=== PATIENT | male | born 1965 | race Caucasian/White ===

== ENCOUNTER 2018-03-31 14:33 | Observation (INO) | payer OTHER ==
[2018-03-31] MEDS ORDERED: IPRATROPIUM-ALBUTEROL 3 ML NEB INHALATION STA (15:37)
[2018-03-31] MEDS ORDERED: methylPREDNISolone SOD SUCCI 125 MG/2 ML VIAL IV STA (15:37)
[2018-03-31] MEDS ORDERED: LEVOFLOXACIN 750 MG TAB PO STA (15:37)
[2018-03-31] MEDS ORDERED: SODIUM CHLORIDE 0.9% 1,000 ML IV STA (15:37)
--- NOTE | 2018-03-31 15:58 | ED ---
General Adult HPI - General Chief complaint: Shortness of Breath Stated complaint: NBA Time Seen by Provider: 03/31/18 14:56 Source: patient, RN notes reviewed, old records reviewed Mode of arrival: ambulatory Limitations: no limitations - History of Present Illness Initial comments: Patient is a 53-year-old male presents emergency room today with 1 week of difficulty breathing and increased cough. patient has history of asthma. He reports that he's had increased sputum production. He is a nonsmoker. Patient reports that he has been using his albuterol inhaler 8-10 times an hour. Patient states that he is around a lot of smokers. Patient states that he has been having difficulty in breathing, never this severe in the past. He's never been admitted or intubated. - Related Data Home Medications Medication Instructions Recorded Confirmed Albuterol Inhaler [Ventolin Hfa 1 - 2 puff INHALATION RT-Q6H PRN 03/31/18 Inhaler] Celecoxib [CeleBREX] 200 mg PO BID 03/31/18 03/31/18 HYDROcodone/APAP 10-325MG [[place] 1 tab PO TID PRN 03/31/18 03/31/18 10-325] Allergies Allergy/AdvReac Type Severity Reaction Status Date / Time No Known Allergies Allergy Verified 03/31/18 14:50 Review of Systems ROS Statement: Those systems with pertinent positive or pertinent negative responses have been documented in the HPI. ROS Other: All systems not noted in ROS Statement are negative. Past Medical History Past Medical History: Asthma, Osteoarthritis (OA) History of Any Multi-Drug Resistant Organisms: None Reported Past Surgical History: Joint Replacement Additional Past Surgical History / Comment(s): left knee Past Psychological History: No Psychological Hx Reported Smoking Status: Former smoker Past Alcohol Use History: None Reported Past Drug Use History: None Reported General Exam - General Exam Comments Initial Comments: 53-year-old male. Audible wheezing from exam room door. Limitations: no limitations General appearance: alert, in no apparent distress Head exam: Present: atraumatic, normocephalic, normal inspection Eye exam: Present: normal appearance, PERRL, EOMI. Absent: scleral icterus, conjunctival injection, periorbital swelling ENT exam: Present: normal exam, mucous membranes moist Neck exam: Present: normal inspection. Absent: tenderness, meningismus, lymphadenopathy Respiratory exam: Present: wheezes (Severe wheezing noted in all lung bartlett.). Absent: normal lung sounds bilaterally, respiratory distress, rales, rhonchi, stridor Cardiovascular Exam: Present: regular rate, normal rhythm, normal heart sounds. Absent: systolic murmur, diastolic murmur, rubs, gallop, clicks GI/Abdominal exam: Present: soft Extremities exam: Present: normal inspection, full ROM, normal capillary refill. Absent: tenderness, pedal edema, joint swelling, calf tenderness Back exam: Present: normal inspection Neurological exam: Present: alert, oriented X3, CN II-XII intact Psychiatric exam: Present: normal affect, normal mood Skin exam: Present: warm, dry, intact, normal color. Absent: rash Course Vital Signs 03/31/18 03/31/18 03/31/18 14:37 15:34 15:46 Temperature 97.7 F Pulse Rate 90 91 Respiratory 24 26 H Rate Blood Pressure 160/82 O2 Sat by Pulse 97 Oximetry 03/31/18 03/31/18 03/31/18 15:58 16:13 16:32 Temperature Pulse Rate 96 87 93 Respiratory Rate Blood Pressure O2 Sat by Pulse Oximetry 03/31/18 03/31/18 03/31/18 16:40 17:14 17:55 Temperature 98.8 F Pulse Rate 88 90 104 H Respiratory 22 22 Rate Blood Pressure 158/97 162/96 O2 Sat by Pulse 98 96 Oximetry EKG Findings - EKG Comments: EKG Findings:: EKG performed at 1606 shows normal sinus rhythm, normal EKG. Ventricular rate of 80 bpm. Is 164 ms. QRS duration is 78 ms. QT QTc is 384/ 464 ms. Medical Decision Making - Medical Decision Making Patient is a 53-year-old male presents emergency department today with severe difficulty breathing for the past week. He rates the emergency department with severe audible wheezing. He was given hour-long breathing treatment, started on IV fluids, given IV Solu-Medrol and 90 and. Patient continues to have oxygen saturation 94% after an hour-long treatment and continues to have some wheezing. He did have some significant improvement after this treatment however. Chest x-ray was reviewed and negative for any acute process, there is some evidence of some atelectasis in the left lung base. White blood cell count was within normal limits. Chemistry panel was reviewed and unremarkable. EKG shows no acute changes. Cardiac enzymes were reviewed and unremarkable. At this time Patient with continued low oxygen saturations and significant wheezing will be kept in the hospital. I discussed the case with DUSTY Palomares from [facility] who agrees to the admission. We will consult pulmonology. - Lab Data Result diagrams: 03/31/18 15:40 03/31/18 15:40 Lab Results 03/31/18 03/31/18 03/31/18 Range/Units 15:40 15:40 15:40 WBC 7.6 (3.8-10.6) k/uL RBC 4.97 (4.30-5.90) m/uL Hgb 15.2 (13.0-17.5) gm/dL Hct 44.6 (39.0-53.0) % MCV 89.7 (80.0-100.0) fL MCH 30.6 (25.0-35.0) pg MCHC 34.1 (31.0-37.0) g/dL RDW 14.1 (11.5-15.5) % Plt Count 269 (150-450) k/uL Neutrophils % 56 % Lymphocytes % 24 % Monocytes % 8 % Eosinophils % 7 % Basophils % 1 % Neutrophils # 4.3 (1.3-7.7) k/uL Lymphocytes # 1.8 (1.0-4.8) k/uL Monocytes # 0.6 (0-1.0) k/uL Eosinophils # 0.5 (0-0.7) k/uL Basophils # 0.1 (0-0.2) k/uL PT (9.0-12.0) sec INR (<1.2) APTT (22.0-30.0) sec VBG pH (7.31-7.41) VBG pCO2 (37-51) mmHg VBG HCO3 (24-28) mmol/L Sodium 139 (137-145) mmol/L Potassium 4.7 (3.5-5.1) mmol/L Chloride 102 (98-107) mmol/L Carbon Dioxide 26 (22-30) mmol/L Anion Gap 11 mmol/L BUN 18 (9-20) mg/dL Creatinine 0.83 (0.66-1.25) mg/dL Est GFR (CKD-EPI)AfAm >90 (>60 ml/min/1.73 sqM) Est GFR (CKD-EPI)NonAf >90 (>60 ml/min/1.73 sqM) Glucose 91 (74-99) mg/dL Calcium 9.8 (8.4-10.2) mg/dL Magnesium 2.2 (1.6-2.3) mg/dL Total Bilirubin 0.5 (0.2-1.3) mg/dL AST 31 (17-59) U/L ALT 41 (21-72) U/L Alkaline Phosphatase 64 (38-126) U/L Total Creatine Kinase 450 H (55-170) U/L CK-MB (CK-2) 5.0 H (0.0-2.4) ng/mL CK-MB (CK-2) Rel Index 1.1 Troponin I <0.012 (0.000-0.034) ng/mL Total Protein 7.1 (6.3-8.2) g/dL Albumin 4.3 (3.5-5.0) g/dL 03/31/18 03/31/18 Range/Units 15:40 16:05 WBC (3.8-10.6) k/uL RBC (4.30-5.90) m/uL Hgb (13.0-17.5) gm/dL Hct (39.0-53.0) % MCV (80.0-100.0) fL MCH (25.0-35.0) pg MCHC (31.0-37.0) g/dL RDW (11.5-15.5) % Plt Count (150-450) k/uL Neutrophils % % Lymphocytes % % Monocytes % % Eosinophils % % Basophils % % Neutrophils # (1.3-7.7) k/uL Lymphocytes # (1.0-4.8) k/uL Monocytes # (0-1.0) k/uL Eosinophils # (0-0.7) k/uL Basophils # (0-0.2) k/uL PT 9.9 (9.0-12.0) sec INR 0.9 (<1.2) APTT 24.5 (22.0-30.0) sec VBG pH 7.51 H (7.31-7.41) VBG pCO2 34 L (37-51) mmHg VBG HCO3 27 (24-28) mmol/L Sodium (137-145) mmol/L Potassium (3.5-5.1) mmol/L Chloride (98-107) mmol/L Carbon Dioxide (22-30) mmol/L Anion Gap mmol/L BUN (9-20) mg/dL Creatinine (0.66-1.25) mg/dL Est GFR (CKD-EPI)AfAm (>60 ml/min/1.73 sqM) Est GFR (CKD-EPI)NonAf (>60 ml/min/1.73 sqM) Glucose (74-99) mg/dL Calcium (8.4-10.2) mg/dL Magnesium (1.6-2.3) mg/dL Total Bilirubin (0.2-1.3) mg/dL AST (17-59) U/L ALT (21-72) U/L Alkaline Phosphatase (38-126) U/L Total Creatine Kinase (55-170) U/L CK-MB (CK-2) (0.0-2.4) ng/mL CK-MB (CK-2) Rel Index Troponin I (0.000-0.034) ng/mL Total Protein (6.3-8.2) g/dL Albumin (3.5-5.0) g/dL - Radiology Data Radiology results: report reviewed x-ray shows subsegmental atelectasis at the left lung base. Normal heart. Disposition Clinical Impression: Severe persistent asthma with acute exacerbation in adult Disposition: ADMITTED IP TO THIS HOSP Condition: Stable Is patient prescribed a controlled substance at d/c from ED?: No Referrals: Rufino Wyatt MD [Primary Care Provider] - 1-2 days Time of Disposition: 18:14
[2018-03-31] MEDS: MAGNESIUM SULFATE-D5W PMX 1 GM in DEXTROSE/WATER 1 100ML.BAG IVPB SCH ×2 (16:01→17:04)
[2018-03-31] MEDS ORDERED: IPRATROPIUM 0.5 MG/2.5 ML NEBU INHALATION STA (16:03)
[2018-03-31] MEDS ORDERED: ALBUTEROL NEBULIZED 2.5 MG/3 ML INHALATION STA (16:05)
[2018-03-31 16:22] LABS: Basophils # (A) 0.1 k/uL (0-0.2); Basophils % (A) 1 %; Eosinophils # (A) 0.5 k/uL (0-0.7); Eosinophils % (A) 7 %; HCT 44.6 % (39.0-53.0); HGB 15.2 gm/dL (13.0-17.5); Lymphocytes # (A) 1.8 k/uL (1.0-4.8); Lymphocytes % (A) 24 %; MCH 30.6 pg (25.0-35.0); MCHC 34.1 g/dL (31.0-37.0); MCV 89.7 fL (80.0-100.0); Mean Platelet Volume 6.8; Monocytes # (A) 0.6 k/uL (0-1.0); Monocytes % (A) 8 %; Neutrophils # (A) 4.3 k/uL (1.3-7.7); Neutrophils % (A) 56 %; Platelet Count 269 k/uL (150-450); RBC 4.97 m/uL (4.30-5.90); RDW 14.1 % (11.5-15.5); WBC 7.6 k/uL (3.8-10.6)
[2018-03-31 16:22] LABS: VBG PH 7.51 (7.31-7.41)
[2018-03-31 16:32] LABS: Creatine Kinase 450 U/L (55-170)
[2018-03-31 16:34] LABS: ALT 41 U/L (21-72); AST 31 U/L (17-59); Albumin 4.3 g/dL (3.5-5.0); Alkaline Phosphatase 64 U/L (38-126); Anion Gap 11 mmol/L; Blood Urea Nitrogen 18 mg/dL (9-20); Calcium 9.8 mg/dL (8.4-10.2); Carbon Dioxide 26 mmol/L (22-30); Chloride 102 mmol/L (98-107); Glucose 91 mg/dL (74-99); INR 0.9 (<1.2); Magnesium 2.2 mg/dL (1.6-2.3); Partial Thromboplastin Time 24.5 sec (22.0-30.0); Potassium 4.7 mmol/L (3.5-5.1); Prothrombin Time 9.9 sec (9.0-12.0); Sodium 139 mmol/L (137-145); Total Bilirubin 0.5 mg/dL (0.2-1.3); Total Protein 7.1 g/dL (6.3-8.2)
[2018-03-31 16:45] LABS: Troponin I <0.012 ng/mL (0.000-0.034)
--- NOTE | 2018-03-31 17:41 | XR ---
EXAMINATION TYPE: XR chest 2V DATE OF EXAM: 03/31/2018 COMPARISON: NONE HISTORY: Difficulty breathing TECHNIQUE: Frontal and lateral views of the chest are obtained. FINDINGS: Heart and mediastinum are normal. There is some linear density at the left lung base. Ther e are chest leads. Costophrenic angles are clear. Bony thorax is intact. IMPRESSION: Subsegmental atelectasis at the left lung base. Normal heart.
[2018-03-31] MEDS ORDERED: IPRATROPIUM-ALBUTEROL 3 ML NEB INHALATION PRN (18:16)
[2018-03-31 20:35] LABS: Glucose,Whole Blood 216 mg/dL (75-99)
[2018-03-31] MEDS: MELOXICAM 7.5 MG TAB PO SCH (22:23)
[2018-03-31] MEDS: INSULIN ASPART 100 UNIT/ML 1 ML 10 ML VIAL SQ SCH (22:25)
[2018-03-31] MEDS: HYDROcodone/APAP 10-325MG 1 EACH TAB PO PRN (22:25)
[2018-03-31] MEDS: methylPREDNISolone SOD SUCCI 125 MG/2 ML VIAL IV SCH (22:26)
[2018-04-01] MEDS ORDERED: ACETAMINOPHEN TAB 500 MG TAB PO PRN (01:14)
[2018-04-01] MEDS ORDERED: ALPRAZolam 0.25 MG TAB PO PRN (01:14)
[2018-04-01] MEDS ORDERED: TEMAZEPAM 15 MG CAP PO PRN (01:14)
[2018-04-01 03:09] LABS: Appearance,Urine Clear (Clear); Bilirubin,Urine Negative (Negative); Blood,Urine Negative (Negative); Color,Urine Yellow; Glucose,Urine (UA) Negative (Negative); Ketones,Urine Negative (Negative); Leukocyte Esterase,Urine Negative (Negative); Nitrite,Urine Negative (Negative); PH, Urine 6.5 (5.0-8.0); Protein,Urine Negative (Negative); Specific Gravity,Urine 1.017 (1.001-1.035); Urobilinogen,Urine <2.0 mg/dL (<2.0)
[2018-04-01] MEDS: methylPREDNISolone SOD SUCCI 125 MG/2 ML VIAL IV SCH ×4 (05:32→23:31)
[2018-04-01 07:18] LABS: Glucose,Whole Blood 145 mg/dL (75-99)
[2018-04-01] MEDS: FORMOTEROL FUMARATE 20 MCG/2 ML NEBU INHALATION SCH ×2 (07:34→20:22)
[2018-04-01] MEDS: BUDESONIDE 1 MG/2 ML NEBU INHALATION SCH ×2 (07:34→20:22)
[2018-04-01] MEDS: IPRATROPIUM-ALBUTEROL 3 ML NEB INHALATION SCH ×4 (07:34→20:22)
[2018-04-01] MEDS: PANTOPRAZOLE 40 MG TABLET PO SCH (07:45)
[2018-04-01] MEDS: AZITHROMYCIN 500 MG in SODIUM CHLORIDE 0.9% 250 ML IVPB SCH (07:45)
[2018-04-01] MEDS: amLODIPine 5 MG TAB PO SCH (07:45)
[2018-04-01] MEDS: HEPARIN SODIUM,PORCINE 5,000 UNIT/ML 1 ML VIAL SQ SCH ×2 (07:46→20:00)
[2018-04-01] MEDS: MELOXICAM 7.5 MG TAB PO SCH ×2 (07:46→19:57)
[2018-04-01] MEDS: INSULIN ASPART 100 UNIT/ML 1 ML 10 ML VIAL SQ SCH ×4 (07:46→20:44)
--- NOTE | 2018-04-01 09:15 | HP ---
HISTORY AND PHYSICAL DATE OF SERVICE: 03/31/2018 CHIEF COMPLAINT: Shortness of breath. HISTORY OF PRESENT ILLNESS: This 53-year-old gentleman with a past medical history of multiple medical problems including asthma, DJD being followed by Dr. Wyatt in the outpatient was not feeling well over the past several days. The patient had at least 2 weeks of increasing shortness of breath and cough also. The patient was apparently around grandkids also who were possibly sick as well. Increase in sputum production was noted. A chest x- ray did not show any acute pneumonia. The patient admitted for further evaluation and treatment. There is no history any fever, rigors, chills at this time. The VBG was 7.51. The creatinine kinase found to be 450. PAST MEDICAL HISTORY: History of asthma, DJD, history of osteoarthritis. MEDICATIONS: 1. Hydrocodone 10 mg t.i.d. p.r.n. 2. Albuterol 1-2 puffs q.6h p.r.n. 3. Celebrex 200 mg b.i.d. ALLERGIES: None. FAMILY HISTORY: No history of heart disease or strokes in the family. SOCIAL HISTORY: No history of smoking. No history of alcohol intake. REVIEW OF SYSTEMS: ENT: No diminished vision. No diminished hearing. CARDIO SYSTEM: No angina or palpitations. RESPIRATORY: As mentioned earlier. GI no nausea or vomiting. : No dysuria. NERVOUS SYSTEM: No numbness or weakness. ALLERGY/IMMUNOLOGY: As mentioned earlier. HEMATOLOGY/ONCOLOGY: No history of anemia. ENDOCRINE: No history of diabetes or hypothyroidism. CONSTITUTIONAL: As mentioned earlier. Dermatology: Negative. Rheumatology: Negative. Psychiatry: As mentioned earlier. MUSCULOSKELETAL: As mentioned earlier. PHYSICAL EXAM: GENERAL: Patient is alert, oriented x3. VITAL SIGNS: Pulse is 104. Blood pressure 160/96, respiration 22, temperature 98.8, pulse ox 98% on 2 L. HEENT is conjunctivae normal. Oral mucosa moist. NECK is no jugular venous distention. No carotid bruit. No lymph node enlargement. Obese. CARDIOVASCULAR S1-S2. RESPIRATORY: Breath sounds diminished in the bases. Bilateral scattered rhonchi and expiratory wheezing and crackles. ABDOMEN: Soft, obese, nontender. No mass palpable. LEGS: No edema and no swelling. NERVOUS SYSTEM: Higher functions as mentioned earlier. Moves all 4 limbs. No focal motor or sensory deficits. Lymphatics: No lymph nodes palpable in the neck, axillae or groin. SKIN: No ulcer, rash, bleeding. LAB STUDIES: At this time shows WBC 7.2, hemoglobin 15.2, VBG noted. Other labs are noted. Glucose 216. ASSESSMENT: 1. Acute bronchial asthma acute exacerbation with acute purulent tracheobronchitis with failure of outpatient treatment. 2. History of asthma. 3. History of degenerative joint disease. 4. Increased random blood sugar possibly steroid induced. 5. Increased creatinine kinase. RECOMMENDATIONS AND DISCUSSION: This 53-year-old gentleman who presented with multiple complex medical issues, we will monitor the patient closely, continue the current medications, management and symptomatic treatment. We will initiate broad-spectrum IV antibiotics. I would also recommend IV steroids and I would also recommend consultation with Dr. Maddox. Other than that, DVT prophylaxis. Incentive spirometry. Resume the home medications. Prognosis guarded because of multiple complex medical issues. Further recommendations to follow. A copy of dictation being forwarded to Dr. Wyatt, who is the primary physician. See the orders for details. MMODL / IJN: [id number] /
[2018-04-01 11:48] LABS: Glucose,Whole Blood 121 mg/dL (75-99)
[2018-04-01] MEDS ORDERED: INFLUENZA VACCINE (6 MOS+) 60 MCG/0.5 ML SYRINGE IM ONE (13:42)
--- NOTE | 2018-04-01 15:42 | CONS ---
CONSULTATION DATE OF CONSULTATION: 04/01/2018 This is a very pleasant 53-year-old male with a history of chronic bronchial asthma. He states that he sees Dr. Rufino Wyatt up in the [facility]. Anyway, apparently couple weeks ago he had an episode of pneumonia treated with antibiotics. He states he got better. More recently, over the last 3 or 4 days, maybe a bit longer than that, he states that his lung disease has started acting up again. He complains of chest tightness, wheezing, cough, phlegm production, shortness of breath. 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 Anyway, for that reason he drove himself down here to be evaluated in the emergency room and was admitted with a diagnosis of asthma exacerbation. His chest x- ray was not impressive by any means and I do not believe he has pneumonia per se. Likely has a case of infectious bronchitis with bronchospasm. His asthma appears to be relatively stable. Most of the time as it appears that he only takes Ventolin HFA inhaler. He has never seen a lung doctor in the past, although Dr. Wyatt apparently has encouraged him in the past to see a lung doctor. HOME MEDICATIONS: Include albuterol inhaler, Celebrex, and [place]. ALLERGIES: Denied. PAST MEDICAL HISTORY: Positive for asthma and osteoarthritis. SURGICAL HISTORY: Includes joint replacement. That was of the left knee. SOCIAL HISTORY: Positive for previous tobacco use. Does not smoke currently. No illicit drug use or alcohol use. FAMILY HISTORY: Noncontributory. REVIEW OF SYSTEMS: CONSTITUTIONAL: Negative. NEUROLOGIC: Negative. HEENT: Negative. CARDIOVASCULAR: Negative. PULMONARY: Shortness of breath, chest tightness, wheezing, cough, phlegm production. GI/: Negative. RHEUMATOLOGIC/IMMUNOLOGIC: Negative. ENDOCRINOLOGIC: Negative. DERMATOLOGIC: Negative. PHYSICAL EXAMINATION: Current vital signs are reviewed. His temperature is 99.1, heart rate 98, respiratory rate 20, blood pressure 160/91, mean 114, room air saturation 92%. Appears mildly tachypneic. No audible wheeze. No use of accessory muscles. No nasal flaring. There is no conversational dyspnea. HEENT examination is grossly unremarkable. No supplemental oxygen noted. Neck is supple. Full range of motion. No adenopathy or thyromegaly. Neck veins are flat. Cardiovascular examination reveals regular rhythm rate. Heart rate about 100 beats per minute. It is regular. S1, S2 normal. Lungs reveal inspiratory and expiratory wheezes and rhonchi. There is prolongation on forced maneuver. The patient's adventitious lung sounds are more prominent on forced maneuver. The patient wheezes and coughs on forced maneuver. Abdomen is soft. Bowel sounds are heard. No masses or tenderness. Extremities are intact. No cyanosis, clubbing, or edema. Skin without rash. Neurologic examination is brief but nonfocal. LAB DATA: Reviewed. His CBC is completely normal. PT, PTT and INR normal. His venous blood gas shows a respiratory alkalosis. Sodium, potassium, chloride, CO2 all normal. BUN and creatinine were normal. Sugar was elevated to 216. CK was 450, CK-MB was 5. Troponins were negative. Urine is negative. Influenza studies were negative. A chest x-ray was done in the afternoon yesterday which shows some atelectasis at the left lung base. No spencer infiltrate. ASSESSMENT: 1. Asthma exacerbation complicated by purulent tracheobronchitis. 2. Recent episode of pneumonia, treated by primary doctor. 3. Degenerative joint disease. PLAN: Medications are reviewed. We will make sure that he is on a short-acting beta agonist, short-acting muscarinic antagonist, inhaled corticosteroids, long-acting beta agonist, systemic corticosteroids and oral antibiotics. The patient will see us post discharge. We will make sure he gets updated pulmonary function tests. He has never seen a lung doctor in the past. Additional recommendations and suggestions are forthcoming. Finally, I will add some Singulair to his regimen at 10 mg at bedtime. MMODL / IJN: [id number] /
[2018-04-01 16:23] LABS: Creatine Kinase 452 U/L (55-170)
[2018-04-01 16:36] LABS: Troponin I <0.012 ng/mL (0.000-0.034)
[2018-04-01 16:56] LABS: Glucose,Whole Blood 220 mg/dL (75-99)
[2018-04-01] MEDS: MONTELUKAST 10 MG TAB PO SCH (20:00)
[2018-04-01 20:36] LABS: Glucose,Whole Blood 116 mg/dL (75-99)
--- NOTE | 2018-04-01 20:45 | PN ---
PROGRESS NOTE DATE OF SERVICE: 04/01/2018 This 53-year-old gentleman was admitted with shortness of breath and acute bronchial asthma acute exacerbation also had possibly tracheobronchitis. No chest pain. No palpitations. No fever. The patient is on high-dose IV steroids. Dr. Maddox is following the patient closely. No chest pain. No palpitation. EXAM: Alert and oriented x3. Pulse is 110, blood pressure is 117/70, respiration 20, temperature 98.9, pulse ox 94% on room air. HEENT: Conjunctivae normal. Oral mucosa moist. NECK: No jugular venous distention. No lymph node enlargement. CARDIOVASCULAR: S1, S2. RESPIRATORY: Diminished breath sounds at the bases. Bilateral scattered rhonchi and crackles, expiratory wheezing. ABDOMEN: Soft, nontender. LEGS: No swelling. NERVOUS SYSTEM: No focal deficits. LABS: Creatine kinase 452. Other labs are noted. Influenza is negative. ASSESSMENT: 1. Acute bronchial asthma acute exacerbation, acute purulent tracheobronchitis with failure of outpatient treatment. 2. History of recent pneumonia. 3. History of asthma. 4. History of DJD. 5. Increased random blood sugar, possibly steroid induced. 6. Increased creatinine kinase. RECOMMENDATIONS: Recommend to continue current management, continue symptomatic treatment, continue the bronchodilators, continue empiric antibiotics. Otherwise, repeat labs will be ordered. Guarded prognosis because of multiple complex medical issues. Influenza vaccine has been given. The patient is feeling slightly better. Further recommendations to follow. MMODL / IJN: [id number] /
[2018-04-02] MEDS: methylPREDNISolone SOD SUCCI 125 MG/2 ML VIAL IV SCH ×2 (05:28→11:27)
[2018-04-02 07:05] LABS: Glucose,Whole Blood 166 mg/dL (75-99)
[2018-04-02] MEDS: BUDESONIDE 1 MG/2 ML NEBU INHALATION SCH ×2 (08:18→20:02)
[2018-04-02] MEDS: IPRATROPIUM-ALBUTEROL 3 ML NEB INHALATION SCH ×4 (08:18→20:02)
[2018-04-02] MEDS: FORMOTEROL FUMARATE 20 MCG/2 ML NEBU INHALATION SCH ×2 (08:18→20:01)
[2018-04-02 08:40] LABS: Basophils % (A) 0 %; Eosinophils % (A) 0 %; HCT 45.3 % (39.0-53.0); HGB 14.8 gm/dL (13.0-17.5); Lymphocytes # (A) 1.1 k/uL (1.0-4.8); Lymphocytes % (A) 6 %; MCH 30.3 pg (25.0-35.0); MCHC 32.7 g/dL (31.0-37.0); MCV 92.6 fL (80.0-100.0); Monocytes # (A) 0.5 k/uL (0-1.0); Monocytes % (A) 3 %; Neutrophils # (A) 15.3 k/uL (1.3-7.7); Neutrophils % (A) 90 %; Platelet Count 325 k/uL (150-450); RBC 4.89 m/uL (4.30-5.90); RDW 14.4 % (11.5-15.5)
[2018-04-02 09:06] LABS: Anion Gap 10 mmol/L; Blood Urea Nitrogen 21 mg/dL (9-20); Calcium 9.4 mg/dL (8.4-10.2); Carbon Dioxide 29 mmol/L (22-30); Chloride 103 mmol/L (98-107); Glucose 151 mg/dL (74-99); Potassium 4.8 mmol/L (3.5-5.1); Sodium 142 mmol/L (137-145)
[2018-04-02] MEDS: MELOXICAM 7.5 MG TAB PO SCH ×2 (09:07→21:52)
[2018-04-02] MEDS: amLODIPine 5 MG TAB PO SCH (09:08)
[2018-04-02] MEDS: PANTOPRAZOLE 40 MG TABLET PO SCH (09:08)
[2018-04-02] MEDS: INSULIN ASPART 100 UNIT/ML 1 ML 10 ML VIAL SQ SCH ×4 (09:08→21:53)
[2018-04-02] MEDS: HEPARIN SODIUM,PORCINE 5,000 UNIT/ML 1 ML VIAL SQ SCH ×2 (09:09→21:52)
[2018-04-02] MEDS: HYDROcodone/APAP 10-325MG 1 EACH TAB PO PRN (11:14)
[2018-04-02] MEDS: AZITHROMYCIN 500 MG in SODIUM CHLORIDE 0.9% 250 ML IVPB SCH (11:15)
[2018-04-02] MEDS ORDERED: LORazepam 1 MG TAB PO PRN (11:36)
[2018-04-02 12:07] LABS: Glucose,Whole Blood 115 mg/dL (75-99)
[2018-04-02] MEDS: ASPIRIN 81 MG PO SCH (13:00)
[2018-04-02 13:12] LABS: Hemoglobin A1C 5.3 % (4.0-6.0)
--- NOTE | 2018-04-02 13:58 | P.PN ---
Subjective Progress Note Date: 04/02/18 Principal diagnosis: Acute exacerbation of chronic bronchial asthma complicated by purulent tracheobronchitis This is a very pleasant 53-year-old white male patient of Dr. Rufino Wyatt, who was admitted to the hospital on 03/31/2018 after she came in for evaluation of chest tightness, wheezes, cough, phlegm production, shortness of breath. Chest x-ray showed subsegmental atelectasis at the left lung base,doubt pneumonia. Patient is being treated for acute exacerbation of chronic bronchial asthma with tracheobronchitis, he has been active on a combination of antibiotics including azithromycin and Rocephin, IV steroids, nebulized bronchodilators, Pulmicort and Perforomist. He states he was feeling better yesterday, but yesterday he got his influenza vaccine, and he believes that may have worsened his symptoms, he states he coughed all night, this morning he seen sitting up in the chair, lung sounds are still tight and wheezy. Patient is bringing up amount of yellow sputum. Afebrile, hemodynamically stable, he has been ambulating. Today's labs have been reviewed, showed WBC of 17.0, hemoglobin of 14.8, electrolytes were within normal limits, BUN is 21 and creatinine 0.87, influenza was not detected, urinalysis was negative. Objective - Vital Signs Vital signs: Vital Signs Temp 98.0 F 04/02/18 06:23 Pulse 92 04/02/18 12:42 Resp 18 04/02/18 06:23 BP 157/85 04/02/18 06:23 Pulse Ox 93 L 04/02/18 06:23 Intake & Output 04/01/18 04/02/18 04/02/18 18:59 06:59 18:59 Weight 117.48 kg Other: Voiding Method Toilet # Voids 1 1 - Exam GENERAL EXAM: Alert, pleasant 53-year-old obese white male a bit flushed comfortable in no apparent distress. HEAD: Normocephalic/atraumatic. EYES: Normal reaction of pupils, equal size. Conjunctiva pink, sclera white. NOSE: Clear with pink turbinates. THROAT: No erythema or exudates. NECK: No masses, no JVD, no thyroid enlargement, no adenopathy. CHEST: No chest wall deformity. Symmetrical expansion. LUNGS: Diffuse wheezes. CVS: Regular rate and rhythm, normal S1 and S2, no gallops, no murmurs, no rubs ABDOMEN: Soft, nontender. No hepatosplenomegaly, normal bowel sounds, no guarding or rigidity. EXTREMITIES: No clubbing, no edema, no cyanosis, 2+ pulses and upper and lower extremities. MUSCULOSKELETAL: Muscle strength and tone normal. SPINE: No scoliosis or deformity SKIN: No rashes CENTRAL NERVOUS SYSTEM: Alert and oriented -3. No focal deficits, tone is normal in all 4 extremities. PSYCHIATRIC: Alert and oriented -3. Appropriate affect. Intact judgment and insight. - Labs CBC & Chem 7: 04/02/18 07:56 04/02/18 07:56 Labs: Abnormal Lab Results - Last 24 Hours (Table) 04/01/18 04/01/18 04/01/18 Range/Units 15:46 16:46 20:35 WBC (3.8-10.6) k/uL Neutrophils # (1.3-7.7) k/uL BUN (9-20) mg/dL Glucose (74-99) mg/dL POC Glucose (mg/dL) 220 H 116 H (75-99) mg/dL Total Creatine Kinase 452 H (55-170) U/L CK-MB (CK-2) 4.0 H (0.0-2.4) ng/mL 04/02/18 04/02/18 04/02/18 Range/Units 07:03 07:56 07:56 WBC 17.0 H (3.8-10.6) k/uL Neutrophils # 15.3 H (1.3-7.7) k/uL BUN 21 H (9-20) mg/dL Glucose 151 H (74-99) mg/dL POC Glucose (mg/dL) 166 H (75-99) mg/dL Total Creatine Kinase (55-170) U/L CK-MB (CK-2) (0.0-2.4) ng/mL 04/02/18 Range/Units 11:59 WBC (3.8-10.6) k/uL Neutrophils # (1.3-7.7) k/uL BUN (9-20) mg/dL Glucose (74-99) mg/dL POC Glucose (mg/dL) 115 H (75-99) mg/dL Total Creatine Kinase (55-170) U/L CK-MB (CK-2) (0.0-2.4) ng/mL Microbiology - Last 24 Hours (Table) 04/01/18 02:45 Urine Culture - Preliminary Urine,Clean Catch 03/31/18 15:40 Blood Culture - Preliminary Blood No Growth after 24 hours Assessment and Plan Plan: Assessment: #1. Acute exacerbation of severe persistent asthma complicated by purulent tracheobronchitis #2. Recent episode of pneumonia treated on an outpatient basis #3. Degenerative joint disease #4. Former smoker Plan: Continue current medical treatment, continue IV steroids, antibiotics, nebulized bronchodilators, patient is still tight and wheezy, and has some chest tightness. He is bringing up large amount of yellow phlegm. Slight improvement. Not quite ready for discharge I performed a history & physical examination of the patient and discussed their management with my nurse practitioner, Terese Galarza. I reviewed the nurse practitioner's note and agree with the documented findings and plan of care. Lung sounds are positive for diffuse wheezes throughout the lung bartlett. The findings and the impression was discussed with the patient. I attest to the documentation by the nurse practitioner. Time with Patient: Less than 30
[2018-04-02 17:16] LABS: Glucose,Whole Blood 215 mg/dL (75-99)
--- NOTE | 2018-04-02 18:28 | PN ---
PROGRESS NOTE DATE OF SERVICE: 04/02/2018 This 53-year-old gentleman with acute bronchial asthma acute exacerbation closely monitored. No chest pain. No palpitations. No fever. EXAM: Alert and oriented x3. Pulse is 109, blood pressure 120/79, respiration 18, temperature 97.6 pulse ox normal. HEENT: Conjunctivae normal. Oral mucosa moist. NECK: No jugular venous distention. No lymph node enlargement. CARDIOVASCULAR: S1, S2. RESPIRATORY: Diminished breath sounds at the bases. Bilateral scattered rhonchi and crackles. ABDOMEN: Soft, nontender. LEGS: No swelling. NERVOUS SYSTEM: No focal deficits. LAB STUDIES: WBC NTD, hemoglobin 14.8. ASSESSMENT: 1. Acute bronchial asthma acute exacerbation with acute purulent tracheobronchitis with failure of outpatient treatment. 2. History of recent pneumonia. 3. History of asthma. 4. History of DJD. 5. Increased random blood sugar, possible steroid induced. 6. Increased creatinine kinase. RECOMMENDATIONS: Continue current medical management, continue to monitor, continue symptomatic treatment. Otherwise, at this time continue the bronchodilators, steroids and closely follow with Dr. Markham. Will taper the steroids to 40 mg today. Further recommendations to follow. Will increase ambulation. MMODL / IJN: [id number] / SCOTTY
[2018-04-02 20:41] LABS: Glucose,Whole Blood 195 mg/dL (75-99)
[2018-04-02] MEDS: MONTELUKAST 10 MG TAB PO SCH (21:52)
[2018-04-02] MEDS: methylPREDNISolone SOD SUCCI 40 MG/ML 1 ML VIAL IV SCH (23:17)
[2018-04-03 00:33] VITALS: RESP 20
[2018-04-03] MEDS: BUDESONIDE 1 MG/2 ML NEBU INHALATION SCH (07:24)
[2018-04-03] MEDS: INSULIN ASPART 100 UNIT/ML 1 ML 10 ML VIAL SQ SCH ×2 (07:25→12:15)
[2018-04-03] MEDS: IPRATROPIUM-ALBUTEROL 3 ML NEB INHALATION SCH ×2 (07:27→11:14)
[2018-04-03] MEDS: FORMOTEROL FUMARATE 20 MCG/2 ML NEBU INHALATION SCH (07:27)
[2018-04-03] MEDS: MELOXICAM 7.5 MG TAB PO SCH (07:45)
[2018-04-03] MEDS: PANTOPRAZOLE 40 MG TABLET PO SCH (07:45)
[2018-04-03] MEDS: ASPIRIN 81 MG PO SCH (07:45)
[2018-04-03] MEDS: amLODIPine 5 MG TAB PO SCH (07:46)
[2018-04-03] MEDS: methylPREDNISolone SOD SUCCI 40 MG/ML 1 ML VIAL IV SCH (07:46)
[2018-04-03] MEDS: HEPARIN SODIUM,PORCINE 5,000 UNIT/ML 1 ML VIAL SQ SCH (07:46)
[2018-04-03 07:49] VITALS: BP 147/79; TEMP 97.8
[2018-04-03 07:51] LABS: Glucose,Whole Blood 127 mg/dL (75-99)
[2018-04-03] MEDS: HYDROcodone/APAP 10-325MG 1 EACH TAB PO PRN (08:09)
[2018-04-03] MEDS ORDERED: AZITHROMYCIN 500 MG TAB PO SCH (09:00)
[2018-04-03] MEDS ORDERED: predniSONE 20 MG TAB PO SCH (11:00)
[2018-04-03 11:34] VITALS: PULSE 100
[2018-04-03 12:09] LABS: Glucose,Whole Blood 106 mg/dL (75-99)
[2018-04-03 12:34] LABS: Basophils % (A) 0 %; Eosinophils % (A) 0 %; HGB 14.8 gm/dL (13.0-17.5); Lymphocytes # (A) 1.4 k/uL (1.0-4.8); Lymphocytes % (A) 7 %; MCH 30.4 pg (25.0-35.0); MCHC 32.8 g/dL (31.0-37.0); MCV 92.8 fL (80.0-100.0); Mean Platelet Volume 6.8; Monocytes # (A) 1.3 k/uL (0-1.0); Monocytes % (A) 6 %; Neutrophils # (A) 16.7 k/uL (1.3-7.7); Neutrophils % (A) 85 %; Platelet Count 322 k/uL (150-450); RBC 4.85 m/uL (4.30-5.90); RDW 14.3 % (11.5-15.5); WBC 19.6 k/uL (3.8-10.6)
[2018-04-03 12:41] LABS: Anion Gap 11 mmol/L; Blood Urea Nitrogen 21 mg/dL (9-20); Calcium 9.3 mg/dL (8.4-10.2); Carbon Dioxide 25 mmol/L (22-30); Chloride 102 mmol/L (98-107); Glucose 105 mg/dL (74-99); Potassium 4.6 mmol/L (3.5-5.1); Sodium 138 mmol/L (137-145)
--- NOTE | 2018-04-03 13:31 | P.PN ---
Subjective Progress Note Date: 04/03/18 Principal diagnosis: Acute exacerbation of chronic bronchial asthma and purulent tracheobronchitis This is a very pleasant 53-year-old white male patient of Dr. Rufino Wyatt, who was admitted to the hospital on 03/31/2018 after she came in for evaluation of chest tightness, wheezes, cough, phlegm production, shortness of breath. Chest x-ray showed subsegmental atelectasis at the left lung base,doubt pneumonia. Patient is being treated for acute exacerbation of chronic bronchial asthma with tracheobronchitis, he has been active on a combination of antibiotics including azithromycin and Rocephin, IV steroids, nebulized bronchodilators, Pulmicort and Perforomist. He states he was feeling better yesterday, but yesterday he got his influenza vaccine, and he believes that may have worsened his symptoms, he states he coughed all night, this morning he seen sitting up in the chair, lung sounds are still tight and wheezy. Patient is bringing up amount of yellow sputum. Afebrile, hemodynamically stable, he has been ambulating. Today's labs have been reviewed, showed WBC of 17.0, hemoglobin of 14.8, electrolytes were within normal limits, BUN is 21 and creatinine 0.87, influenza was not detected, urinalysis was negative. Reevaluated today on 04/03/2018, patient is doing much better, breathing a lot easier, no cough no wheezing no shortness of breath, discharge planning is in progress, I have cleared the patient to be discharged home today, on oral prednisone, bronchodilators, antibiotics, and to see me in the office in one week. Objective - Vital Signs Vital signs: Vital Signs Temp 97.8 F 04/03/18 07:20 Pulse 100 04/03/18 11:30 Resp 20 04/03/18 07:20 BP 147/79 04/03/18 07:20 Pulse Ox 94 L 04/03/18 07:20 Intake & Output 04/02/18 04/03/18 04/03/18 18:59 06:59 18:59 Other: Voiding Method Toilet # Voids 3 1 - Exam GENERAL EXAM: Alert, pleasant 53-year-old obese white male a bit flushed comfortable in no apparent distress. HEAD: Normocephalic/atraumatic. EYES: Normal reaction of pupils, equal size. Conjunctiva pink, sclera white. NOSE: Clear with pink turbinates. THROAT: No erythema or exudates. NECK: No masses, no JVD, no thyroid enlargement, no adenopathy. CHEST: No chest wall deformity. Symmetrical expansion. LUNGS: Minimal wheezing on forced expiratory maneuver only, otherwise lungs are clear. On quiet breathing. CVS: Regular rate and rhythm, normal S1 and S2, no gallops, no murmurs, no rubs ABDOMEN: Soft, nontender. No hepatosplenomegaly, normal bowel sounds, no guarding or rigidity. EXTREMITIES: No clubbing, no edema, no cyanosis, 2+ pulses and upper and lower extremities. MUSCULOSKELETAL: Muscle strength and tone normal. SPINE: No scoliosis or deformity SKIN: No rashes CENTRAL NERVOUS SYSTEM: Alert and oriented -3. No focal deficits, tone is normal in all 4 extremities. PSYCHIATRIC: Alert and oriented -3. Appropriate affect. Intact judgment and insight. - Labs CBC & Chem 7: 04/03/18 11:58 04/03/18 11:58 Labs: Abnormal Lab Results - Last 24 Hours (Table) 04/02/18 04/02/18 04/03/18 Range/Units 17:09 20:40 07:21 WBC (3.8-10.6) k/uL Neutrophils # (1.3-7.7) k/uL Monocytes # (0-1.0) k/uL BUN (9-20) mg/dL Glucose (74-99) mg/dL POC Glucose (mg/dL) 215 H 195 H 127 H (75-99) mg/dL 04/03/18 04/03/18 04/03/18 Range/Units 11:58 11:58 12:06 WBC 19.6 H (3.8-10.6) k/uL Neutrophils # 16.7 H (1.3-7.7) k/uL Monocytes # 1.3 H (0-1.0) k/uL BUN 21 H (9-20) mg/dL Glucose 105 H (74-99) mg/dL POC Glucose (mg/dL) 106 H (75-99) mg/dL Microbiology - Last 24 Hours (Table) 04/01/18 02:45 Urine Culture - Final Urine,Clean Catch 03/31/18 15:40 Blood Culture - Preliminary Blood No Growth after 48 hours Assessment and Plan Assessment: #1. Acute exacerbation of severe persistent asthma complicated by purulent tracheobronchitis #2. Recent episode of pneumonia treated on an outpatient basis #3. Degenerative joint disease #4. Former smoker Recommendation: Switch patient to oral prednisone 40 mg and tapered over 2 weeks , continue albuterol 4 times a day and when necessary, placed the patient on oral antibiotics, Symbicort 160/4.52 puffs twice a day, and see me in the office in one week post discharge. Again cleared for discharge today. Time with Patient: Less than 30
--- NOTE | 2018-04-04 08:57 | DS ---
DISCHARGE SUMMARY DATE OF SERVICE: 04/03/2018 FINAL DIAGNOSES: 1. Acute bronchial asthma, acute exacerbation with acute purulent tracheobronchitis with failure of outpatient treatment. 2. History of recent pneumonia, history of asthma. 3. History of degenerative joint disease. 4. Increased random blood sugar, possibly steroid induced. 5. Increased creatinine kinase distant patient will be discharged in stable condition with guarded prognosis. 6. Chronic hypoxic respiratory failure. HISTORY OF PRESENT ILLNESS: This 53-year-old gentleman with the past medical history with multiple medical problems being followed by Dr. Wyatt in the outpatient setting admitted with bronchial asthma acute exacerbation. Patient was treated with bronchodilators and steroids and empiric antibiotics. Dr. Markham saw the patient. Patient improved significantly. Dr. Markham recommend the patient be discharged. On exam, vital signs are stable. CARDIOVASCULAR: S1, S2. RESPIRATION A few scattered rhonchi. ABDOMEN: Soft. NERVOUS SYSTEM: No focal deficits. DISCHARGE ADVICE AND MEDICATIONS: 1. Diet is cardiac. 2. Activity limited until followup. 3. Follow up with Dr. Markham in 2-3 days. 4. Follow up with Dr. Wyatt in 3 days. MEDICATIONS: 1. Ecotrin 81 mg daily. 2. Celebrex 200 mg q.h.s. 3. [place] 10 mg t.i.d. p.r.n. 4. Ventolin 2 puffs p.o. q.i.d. p.r.n. 5. Norvasc 5 mg p.o. daily. 6. Zithromax 500 mg p.o. daily. 7. Ceftin 500 mg p.o. b.i.d. 5 days. 8. Singulair 10 mg q.h.s. 9. Protonix 40 mg p.o. daily. 10.Prednisone 40 mg daily for 3 days, 30 for 3 days, 20 for 3 days and 10 for 3 days. Lasix could not be arranged. Otherwise the patient is recommended to have close follow up with Dr. Wyatt and Dr. Markham once stable. Guarded prognosis. Further recommendations to follow. MMODL / IJN: [id number] /
== END 2018-04-03 13:43 | disposition home or self-care (01) ==
LOC: EC 14:33 → INTOOBSV 18:06 → 4MS4W 18:06 → UNDODISIN 04-03 13:43
PROVIDERS: ADMIT Hospitalist; ATTEND Hospitalist
DX: J45.51 Severe persistent asthma with (acute) exacerbation (principal); J96.11 Chronic respiratory failure with hypoxia; J20.9 Acute bronchitis, unspecified; Z87.891 Personal history of nicotine dependence; M19.90 Unspecified osteoarthritis, unspecified site; Z23 Encounter for immunization; Z87.01 Personal history of pneumonia (recurrent); R73.9 Hyperglycemia, unspecified; Z79.899 Other long term (current) drug therapy; E66.9 Obesity, unspecified; Z68.35 Body mass index [BMI] 35.0-35.9, adult
CPT/HCPCS: 96376 ×4; 96366 ×4; 96367; 96372 ×3; 96368; 93005 ×2; 96365; 96375; 99285; 36415; 94640 ×7; 94760 ×2; 94644; 80053; 80048 ×2; 82550 ×2; 82553 ×2; 82803; 83735; 84484 ×2; 85025 ×3; 85610; 85730; 81003; 87040; 87086; 87502; 83036; 71046; 90686; G0378 ×4; G0008; J1644 ×3; J2920 ×2; J2930 ×3; J0456 ×2; J0696 ×3; J3475; J7512

== ENCOUNTER 2018-05-23 15:20 | Inpatient (IN) | payer OTHER ==
[2018-05-23] MEDS ORDERED: IPRATROPIUM 0.5 MG/2.5 ML NEBU INHALATION STA ×2 (15:37→17:25)
[2018-05-23] MEDS ORDERED: SODIUM CHLORIDE 0.9% 500 ML 500 ML IV STA (15:37)
[2018-05-23] MEDS ORDERED: ALBUTEROL NEBULIZED 2.5 MG/3 ML INHALATION STA ×2 (15:37→17:25)
[2018-05-23] MEDS ORDERED: DEXAMETHASONE SOD PHOSPHATE 10 MG/ML 1 ML VIAL IV STA (15:40)
--- NOTE | 2018-05-23 15:42 | ED ---
General Adult HPI - General Chief complaint: Shortness of Breath Stated complaint: NBA Time Seen by Provider: 05/23/18 15:32 Source: patient Mode of arrival: wheelchair Limitations: no limitations - History of Present Illness Initial comments: Dictation was produced using [employer] dictation software. please excuse any grammatical, word or spelling errors. Chief Complaint: 53-year-old male past medical history of chronic asthma since of dyspnea History of Present Illness: 83-year-old male with chronic bronchial asthma. He presents today with dyspnea. Patient was seen at his under water assistant Dr. Bartlett's office. He was sent here to the emergency department for severe respiratory distress. Patient has been having difficulty breathing for the past 2-3 weeks. He was recently admitted to the hospital for asthma exacerbation possible pneumonia. Patient was admitted to the hospital last month where he was diagnosed with acute purulent tracheobronchitis with failure of outpatient treatment. Patient was admitted to the hospital for approximately 3 days. He is discharged with continued steroids. Patient denies any constitutional symptoms. Has any pain complaints. The ROS documented in this emergency department record has been reviewed and confirmed by me. Those systems with pertinent positive or negative responses have been documented in the HPI. All other systems are other negative and/or noncontributory. PHYSICAL EXAM: General Impression: Alert and oriented x3, not in acute distress HEENT: Normocephalic atraumatic, extra-ocular movements intact, pupils equal and reactive to light bilaterally, mucous membranes moist. Cardiovascular: Heart regular rate and rhythm, S1&S2 audible, no murmurs, rubs or gallops Chest: Severe bilateral lung wheezing Abdomen: Bowel sounds present, abdomen soft, non-tender, non-distended, no organomegaly Musculoskeletal: Pulses present and equal in all extremities, no peripheral edema Motor: Power 5/5 bilaterally, no focal deficits noted Neurological: CN II-XII grossly intact, no focal motor or sensory deficits noted Skin: Intact with no visualized rashes Psych: Normal affect and mood ED course: 53-year-old male presents chief complaint dyspnea. His history of chronic bronchial asthma. Patient was admitted last month for similar issue. As upon arrival shows heart rate of 105, rest of vital signs within acceptable limits. Patient mild respiratory distress however not excessively tachypneic. Patient is not hypoxic. Patient wheezing bilaterally showing some signs of respiratory distress. Patient given breathing treatment still audibly wheezing. Patient placed on BiPAP given another breathing treatment. Laboratory evaluation is unremarkable. Blood gases are unremarkable. Patient be admitted to the hospital for status asthmaticus. Patient given steroids. Patient also given azithromycin. EKG interpretation: Ventricular rate 96, normal sinus rhythm, MO interval 150, care 76, QTC 449. No MO prolongation, no QTC prolongation, no ST or T-wave changes noted. Overall, this EKG is unremarkable - Related Data Home Medications Medication Instructions Recorded Confirmed Celecoxib [CeleBREX] 200 mg PO HS 03/31/18 05/23/18 HYDROcodone/APAP 10-325MG [Everet[place] 1 tab PO TID PRN 03/31/18 05/23/18 10-325] Aspirin [Adult Low Dose Aspirin EC] 81 mg PO DAILY 04/02/18 05/23/18 Albuterol Inhaler [Ventolin Hfa 2 puff INHALATION RT-Q4H PRN 05/23/18 05/23/18 Inhaler] Albuterol Nebulized [Ventolin 2.5 mg INHALATION RT-Q4H PRN 05/23/18 05/23/18 Nebulized] Cyanocobalamin (Vitamin B-12) 1,000 mcg PO DAILY 05/23/18 05/23/18 [Vitamin B-12] L.acidoph,Paracasei, B.lactis 1 cap PO DAILY 05/23/18 05/23/18 [Probiotic] Multivitamins, Thera [Multivitamin 1 tab PO DAILY 05/23/18 05/23/18 (formulary)] [place]-3 Fatty Acids/Fish Oil [Fish 1 cap PO DAILY 05/23/18 05/23/18 Oil 1,000 mg Softgel] Ubidecarenone [Co Q-10] 100 mg PO DAILY 05/23/18 05/23/18 Previous Rx's Medication Instructions Recorded Montelukast [Singulair] 10 mg PO HS #30 tab 04/02/18 Pantoprazole [Protonix] 40 mg PO AC-BRKFST #30 tablet. 04/02/18 amLODIPine [Norvasc] 5 mg PO DAILY #30 tab 04/02/18 Allergies Allergy/AdvReac Type Severity Reaction Status Date / Time No Known Allergies Allergy Verified 05/23/18 16:23 Review of Systems ROS Statement: Those systems with pertinent positive or pertinent negative responses have been documented in the HPI. ROS Other: All systems not noted in ROS Statement are negative. Past Medical History Past Medical History: Asthma, Osteoarthritis (OA) History of Any Multi-Drug Resistant Organisms: None Reported Past Surgical History: Joint Replacement Additional Past Surgical History / Comment(s): left knee, R hip Past Psychological History: No Psychological Hx Reported Smoking Status: Never smoker Past Alcohol Use History: None Reported Past Drug Use History: None Reported General Exam Limitations: no limitations Course Vital Signs 05/23/18 05/23/18 05/23/18 15:23 15:51 16:05 Temperature 98.2 F Pulse Rate 105 H 100 94 Respiratory 22 Rate Blood Pressure 130/74 O2 Sat by Pulse 94 L Oximetry 05/23/18 05/23/18 05/23/18 16:10 16:26 16:36 Temperature Pulse Rate 99 96 98 Respiratory 30 H Rate Blood Pressure 165/93 O2 Sat by Pulse 99 Oximetry 05/23/18 17:15 Temperature Pulse Rate 100 Respiratory 28 H Rate Blood Pressure 115/77 O2 Sat by Pulse 94 L Oximetry Medical Decision Making - Lab Data Result diagrams: 05/23/18 15:45 05/23/18 15:45 Lab Results 05/23/18 05/23/18 05/23/18 Range/Units 15:45 15:45 15:45 WBC 7.4 (3.8-10.6) k/uL RBC 4.56 (4.30-5.90) m/uL Hgb 14.0 (13.0-17.5) gm/dL Hct 41.6 (39.0-53.0) % MCV 91.2 (80.0-100.0) fL MCH 30.7 (25.0-35.0) pg MCHC 33.7 (31.0-37.0) g/dL RDW 14.7 (11.5-15.5) % Plt Count 278 (150-450) k/uL Neutrophils % 61 % Lymphocytes % 21 % Monocytes % 7 % Eosinophils % 8 % Basophils % 1 % Neutrophils # 4.6 (1.3-7.7) k/uL Lymphocytes # 1.6 (1.0-4.8) k/uL Monocytes # 0.5 (0-1.0) k/uL Eosinophils # 0.6 (0-0.7) k/uL Basophils # 0.1 (0-0.2) k/uL VBG pH (7.31-7.41) VBG pCO2 (37-51) mmHg VBG HCO3 (24-28) mmol/L Sodium 138 (137-145) mmol/L Potassium 4.3 (3.5-5.1) mmol/L Chloride 102 (98-107) mmol/L Carbon Dioxide 29 (22-30) mmol/L Anion Gap 7 mmol/L BUN 21 H (9-20) mg/dL Creatinine 1.02 (0.66-1.25) mg/dL Est GFR (CKD-EPI)AfAm >90 (>60 ml/min/1.73 sqM) Est GFR (CKD-EPI)NonAf 83 (>60 ml/min/1.73 sqM) Glucose 146 H (74-99) mg/dL Calcium 9.3 (8.4-10.2) mg/dL Magnesium 1.8 (1.6-2.3) mg/dL NT-Pro-B Natriuret Pep 19 pg/mL 05/23/18 Range/Units 16:06 WBC (3.8-10.6) k/uL RBC (4.30-5.90) m/uL Hgb (13.0-17.5) gm/dL Hct (39.0-53.0) % MCV (80.0-100.0) fL MCH (25.0-35.0) pg MCHC (31.0-37.0) g/dL RDW (11.5-15.5) % Plt Count (150-450) k/uL Neutrophils % % Lymphocytes % % Monocytes % % Eosinophils % % Basophils % % Neutrophils # (1.3-7.7) k/uL Lymphocytes # (1.0-4.8) k/uL Monocytes # (0-1.0) k/uL Eosinophils # (0-0.7) k/uL Basophils # (0-0.2) k/uL VBG pH 7.46 H (7.31-7.41) VBG pCO2 41 (37-51) mmHg VBG HCO3 29 H (24-28) mmol/L Sodium (137-145) mmol/L Potassium (3.5-5.1) mmol/L Chloride (98-107) mmol/L Carbon Dioxide (22-30) mmol/L Anion Gap mmol/L BUN (9-20) mg/dL Creatinine (0.66-1.25) mg/dL Est GFR (CKD-EPI)AfAm (>60 ml/min/1.73 sqM) Est GFR (CKD-EPI)NonAf (>60 ml/min/1.73 sqM) Glucose (74-99) mg/dL Calcium (8.4-10.2) mg/dL Magnesium (1.6-2.3) mg/dL NT-Pro-B Natriuret Pep pg/mL Disposition Clinical Impression: Status asthmaticus Disposition: ADMITTED IP TO THIS HOSP Condition: Fair Referrals: Rufino Wyatt MD [Primary Care Provider] - 1-2 days Decision Time: 17:33
[2018-05-23 15:58] LABS: Basophils # (A) 0.1 k/uL (0-0.2); Basophils % (A) 1 %; Eosinophils # (A) 0.6 k/uL (0-0.7); Eosinophils % (A) 8 %; HCT 41.6 % (39.0-53.0); Lymphocytes # (A) 1.6 k/uL (1.0-4.8); Lymphocytes % (A) 21 %; MCH 30.7 pg (25.0-35.0); MCHC 33.7 g/dL (31.0-37.0); MCV 91.2 fL (80.0-100.0); Monocytes # (A) 0.5 k/uL (0-1.0); Monocytes % (A) 7 %; Neutrophils # (A) 4.6 k/uL (1.3-7.7); Neutrophils % (A) 61 %; Platelet Count 278 k/uL (150-450); RBC 4.56 m/uL (4.30-5.90); RDW 14.7 % (11.5-15.5); WBC 7.4 k/uL (3.8-10.6)
[2018-05-23] MEDS: MAGNESIUM SULFATE-D5W PMX 1 GM in DEXTROSE/WATER 1 100ML.BAG IVPB SCH ×2 (16:08→17:17)
[2018-05-23 16:12] LABS: Anion Gap 7 mmol/L; Blood Urea Nitrogen 21 mg/dL (9-20); Calcium 9.3 mg/dL (8.4-10.2); Carbon Dioxide 29 mmol/L (22-30); Chloride 102 mmol/L (98-107); Glucose 146 mg/dL (74-99); Magnesium 1.8 mg/dL (1.6-2.3); Potassium 4.3 mmol/L (3.5-5.1); Sodium 138 mmol/L (137-145)
[2018-05-23 16:22] LABS: VBG PH 7.46 (7.31-7.41)
--- NOTE | 2018-05-23 17:02 | XR ---
EXAMINATION TYPE: XR chest 2V DATE OF EXAM: 05/23/2018 COMPARISON: 03/31/2018 HISTORY: Short of breath. Asthma TECHNIQUE: Frontal and lateral views of the chest are obtained. FINDINGS: There is no heart failure nor confluent pneumonic infiltrate. Costophrenic angles are chay r. There are chest leads. Bony thorax is intact. IMPRESSION: Normal chest. There is clearing of minimal atelectasis left lung base compared to old ex am.
[2018-05-23] MEDS ORDERED: IPRATROPIUM-ALBUTEROL 3 ML NEB INHALATION PRN (17:29)
[2018-05-23] MEDS: AZITHROMYCIN 500 MG TAB PO SCH (18:33)
[2018-05-23 20:16] VITALS: BMI 38.0
[2018-05-23] MEDS ORDERED: ACETAMINOPHEN TAB 500 MG TAB PO PRN (22:07)
[2018-05-23] MEDS: CYANOCOBALAMIN 500 MCG TAB PO SCH (23:55)
[2018-05-23] MEDS: amLODIPine 5 MG TAB PO SCH (23:55)
[2018-05-23] MEDS: methylPREDNISolone SOD SUCCI 125 MG/2 ML VIAL IV SCH (23:56)
[2018-05-24 05:49] LABS: Glucose,Whole Blood 119 mg/dL (75-99)
[2018-05-24 06:32] LABS: Basophils % (A) 0 %; Eosinophils % (A) 0 %; HGB 13.3 gm/dL (13.0-17.5); Lymphocytes # (A) 0.7 k/uL (1.0-4.8); Lymphocytes % (A) 7 %; MCH 30.6 pg (25.0-35.0); MCHC 32.4 g/dL (31.0-37.0); MCV 94.6 fL (80.0-100.0); Mean Platelet Volume 7.1; Monocytes # (A) 0.2 k/uL (0-1.0); Monocytes % (A) 3 %; Neutrophils # (A) 8.9 k/uL (1.3-7.7); Neutrophils % (A) 90 %; Platelet Count 281 k/uL (150-450); RBC 4.34 m/uL (4.30-5.90); RDW 14.7 % (11.5-15.5); WBC 9.8 k/uL (3.8-10.6)
[2018-05-24] MEDS: INSULIN ASPART (NovoLOG) 100 UNIT/ML VIAL SQ SCH ×4 (06:35→21:41)
[2018-05-24 06:42] LABS: Anion Gap 5 mmol/L; Blood Urea Nitrogen 21 mg/dL (9-20); Carbon Dioxide 31 mmol/L (22-30); Chloride 104 mmol/L (98-107); Glucose 128 mg/dL (74-99); Sodium 140 mmol/L (137-145)
[2018-05-24 06:44] LABS: Potassium 6.1 mmol/L (3.5-5.1)
[2018-05-24] MEDS: methylPREDNISolone SOD SUCCI 125 MG/2 ML VIAL IV SCH ×4 (06:44→23:22)
[2018-05-24] MEDS: PANTOPRAZOLE 40 MG TABLET PO SCH (06:44)
[2018-05-24] MEDS ORDERED: SODIUM POLYSTYRENE SULFONATE 15 GM/60 ML BOTTLE PO STA (07:04)
[2018-05-24] MEDS ORDERED: INSULIN REGULAR 100 UNIT/ML VIAL IV ONE (07:04)
[2018-05-24] MEDS ORDERED: DEXTROSE 50%-WATER 50 ML SYRINGE IVP STA (07:05)
--- NOTE | 2018-05-24 07:14 | HP ---
HISTORY AND PHYSICAL DATE OF SERVICE: 05/23/2018 CHIEF COMPLAINT: Shortness of breath. HISTORY OF PRESENT ILLNESS: This is a 53-year-old gentleman with past history of asthma, DJD, history of knee pain being followed by Dr. Wyatt in the outpatient setting. He was admitted in April of this year for bronchial asthma acute exacerbation. Currently, the patient is complaining of shortness of breath going on for the last 2-3 weeks which is increasing in severity. The patient came to [facility], admitted for evaluation and treatment. There is no history of fever, chills, or rigors. No history of headache, loss of consciousness. The patient is on BiPAP, the pulse ox improved with BiPAP. There is no history of fever or rigors. No history of headache, loss of consciousness, seizures. A chest x-ray done in the ER showed no evidence of any pneumonia. PAST MEDICAL HISTORY: History of bronchial asthma, history of DJD, history of knee pain, hip pain. MEDICATIONS: 1. Norvasc 5 mg p.o. daily. 2. Coenzyme Q 100 mg p.o. daily. 3. Protonix 40 mg daily. 4. Fish oil 1 p.o. daily. 5. Multivitamins 1 p.o. daily. 6. Singular 10 mg q.h.s. 7. Probiotic 1 daily. 8. [place] 10 mg t.i.d. p.r.n. 9. Vitamin B12 one thousand mcg p.o. daily. 10.Celebrex 200 mg q.h.s. 11.Ecotrin 81 mg. 12.Ventolin nebulized 2.5 q.4 p.r.n. 13.Ventolin HFA inhaler 2 puffs q.4 p.r.n. ALLERGIES: None. FAMILY HISTORY: History of hypertension, Parkinson's. SOCIAL HISTORY: No history of smoking, occasional alcohol intake. REVIEW OF SYSTEMS: ENT: Shows no diminished hearing, diminished vision. CARDIOVASCULAR: mentioned earlier. RESPIRATION: As mentioned earlier. GI: No nausea. : No dysuria. NERVOUS SYSTEM: No numbness or weakness. ALLERGY/IMMUNOLOGY: As mentioned earlier. HEMATOLOGY: No history of anemia. ENDOCRINE: No history of diabetes or hypothyroidism. CONSTITUTIONAL: As mentioned earlier. DERMATOLOGY: Negative. RHEUMATOLOGY: Negative. PSYCHIATRY: As mentioned earlier. PHYSICAL EXAM: Patient is alert and oriented x3. The pulse is 100, blood pressure 115/77, respiration 20, temperature is normal, pulse ox 94% on 2 L. HEENT: Conjunctivae normal. NECK: No jugular venous distension. CARDIOVASCULAR: S1, S2, muffled. RESPIRATION: Breath sounds diminished at the bases, bilateral scattered rhonchi, no crackles. Expiratory wheezing, also patient on BiPAP, settings are noted at 12 IPAP and 6 CPAP, 50% FiO2. Otherwise, respiration breathing efforts are markedly increased. Accessory muscles for respiration use. Patient unable to complete a sentence. ABDOMEN: Soft, obese, nontender. LEGS: No edema. No swelling. NERVOUS SYSTEM: Higher functions as mentioned earlier. Moves all 4 limbs. No focal motor deficits. LYMPHATICS: No lymph node enlargement in the neck or axillae. SKIN: No ulcer, rash, bleeding. JOINTS: No active deforming arthropathy. LABS: At this time shows WBC is 7.8, hemoglobin is 14, and VBG showed pH of 7.46, and glucose 140. ASSESSMENT: 1. Acute bronchial asthma acute exacerbation with acute purulent tracheobronchitis with acute hypoxic respiratory failure on BiPAP. 2. History of bronchial asthma. 3. History of degenerative joint disease. 4. Obesity with body mass index at 38. RECOMMENDATION: In this 53-year-old gentleman who presented with multiple medical issues, at this time I would recommend to continue with the current symptomatic treatment and will optimize bronchodilator treatment and empiric antibiotics. Pulmonary consultation with Dr. Maddox, Dr. Owusu. Otherwise, DVT prophylaxis. Resume the home medications. Prognosis guarded because of multiple complex medical issues. Further recommendations to follow. A copy of this will be forwarded to Dr. Wyatt, who is the primary care physician. MMODL / IJN: [id number] /
[2018-05-24] MEDS: MULTIVITAMINS, THERA 1 EACH TAB PO SCH (07:52)
[2018-05-24] MEDS: amLODIPine 5 MG TAB PO SCH (07:52)
[2018-05-24] MEDS: LIPASE 5,000/PROTEASE 17,000/AMYLASE 24,000 PO SCH (07:52)
[2018-05-24] MEDS: ASPIRIN 81 MG PO SCH (07:52)
[2018-05-24] MEDS ORDERED: CALCIUM GLUCONATE 1 GM in SODIUM CHLORIDE 0.9% 100 ML IVPB ONE (08:00)
[2018-05-24] MEDS ORDERED: NON-FORMULARY DRUG (Omega-3 Fatty Acids/Fish Oil [Fish Oil 1,000 Mg Softgel] 1 CAP) PO SCH (09:00)
[2018-05-24] MEDS ORDERED: NON-FORMULARY DRUG (Ubidecarenone [Co Q-10] 100 MG) PO SCH (09:00)
[2018-05-24] MEDS: BUDESONIDE 1 MG/2 ML NEBU INHALATION SCH ×2 (09:26→19:52)
[2018-05-24] MEDS: IPRATROPIUM-ALBUTEROL 3 ML NEB INHALATION SCH ×4 (09:26→19:52)
[2018-05-24] MEDS: FORMOTEROL FUMARATE 20 MCG/2 ML NEBU INHALATION SCH ×2 (09:27→19:52)
[2018-05-24] MEDS: HEPARIN SODIUM,PORCINE 5,000 UNIT/ML 1 ML VIAL SQ SCH ×2 (10:10→21:41)
[2018-05-24 12:01] LABS: Glucose,Whole Blood 132 mg/dL (75-99)
[2018-05-24 12:05] LABS: Hemoglobin A1C 5.4 % (4.0-6.0)
[2018-05-24] MEDS: HYDROcodone/APAP 10-325MG 1 EACH TAB PO PRN (13:43)
[2018-05-24] MEDS ORDERED: RX INFO: IV CONTRAST WAS GIVEN 1 EACH MISC MISCELLANE PRN (14:18)
--- NOTE | 2018-05-24 15:59 | CT ---
EXAMINATION TYPE: CT chest w con DATE OF EXAM: 05/24/2018 COMPARISON: None HISTORY: Chest pain with Shortness of breath adn whezzing CT DLP: 763.9 mGycm Automated exposure control for dose reduction was used. CONTRAST: CT scan of the chest is performed with IV Contrast, patient injected with 100 mL of Isovue 300. FINDINGS: LUNGS: The lungs are grossly clear, there is no concerning parenchymal mass or nodule identified. Bas ilar atelectasis noted. No evidence for focal consolidation. There is no pleural effusion or pneumoth orax seen. The tracheobronchial tree is patent. MEDIASTINUM: There are no greater than 1 cm hilar or mediastinal lymph nodes. No pericardial effusi on is seen. Thoracic aorta is of normal caliber. The heart is not enlarged. UPPER ABDOMEN: No significant abnormality appreciated. OTHER: No additional significant abnormality is seen. IMPRESSION: Basilar atelectasis noted. No evidence for focal consolidation.
[2018-05-24 16:59] LABS: Glucose,Whole Blood 223 mg/dL (75-99)
--- NOTE | 2018-05-24 17:14 | P.CNPUL ---
History of Present Illness Consult date: 05/24/18 Reason for consult: dyspnea History of present illness: A 53-year-old male patient, an ex-smoker, morbidly obese with typical features of obstructive sleep apnea, was in the hospital back in March for shortness of breath. At that time the patient was given a diagnosis of COPD/asthma yet the patient did not have the opportunity to be further investigated for this matter on outpatient basis. The patient came to our office yesterday acutely bronchospastic and wheezy and short of breath and he was in quite significant respiratory distress. He was diagnosed having COPD/asthma exacerbation and for that reason he was taken to the emergency department. No fever. No chills. No pleurisy. No hemoptysis. Influenza screen was negative. He was hypoxic and his pulse ox was as low as 93-94% on room air. He has a congested cough. Unable to bring up much sputum. Hemoglobin is at 9.8. No aspiration. No travel history. Chest x-ray did not show any acute abnormalities. Following that I ordered a CAT scan of the chest that showed some limited patchy infiltration of the lung bases which could be pneumonia versus atelectasis. The patient is currently hospitalized on a combination of DuoNeb nebulized treatment [id number], Rocephin and Zithromax, IV Solu Medrol 60 mg every 6 hours. Feeling slightly better. He has loud snoring. With this apneas. Excessive somnolence and sleepiness. He is obese with a BMI of 38. He has central obesity. No constipation. No diarrhea. No altered mentation. There is a questionable S3 bright red blood per rectum and for that reason a GI consultation will be requested. Patient's EKG was a normal sinus rhythm. Review of Systems Constitutional: Reports daytime sleepiness, Reports fatigue Eyes: denies as per HPI, denies blurred vision, denies bulging eye, denies decreased vision, denies diplopia, denies discharge, denies dry eye, denies irritation, denies itching, denies pain, denies photophobia, denies loss of peripheral vision, denies loss of vision, denies tunnel vision/blind spots Ears: deny: decreased hearing, ear discharge, earache, tinnitus Ears, nose, mouth and throat: Denies headache, Denies sore throat Cardiovascular: Reports decreased exercise tolerance, Reports dyspnea on exertion, Reports shortness of breath Respiratory: Reports cough, Reports dyspnea, Reports respiratory infections, Reports snoring, Reports wheezing Gastrointestinal: Reports BRBPR, Denies abdominal pain, Denies diarrhea, Denies nausea, Denies vomiting Genitourinary: Reports as per HPI Musculoskeletal: Denies myalgias Musculoskeletal: absent: ankle pain, ankle stiffness, ankle swelling, as per HPI , elbow pain, elbow stiffness, elbow swelling, foot pain, foot stiffness, foot swelling, hand pain, hand stiffness, hand swelling, hip pain, hip stiffness, hip swelling, knee pain, knee stiffness, knee swelling, shoulder pain, shoulder stiffness, shoulder swelling, wrist pain, wrist stiffness, wrist swelling Integumentary: Denies pruritus, Denies rash Neurological: Reports as per HPI Psychiatric: Reports as per HPI Endocrine: Reports as per HPI Hematologic/Lymphatic: Reports as per HPI Allergic/Immunologic: Reports as per HPI Past Medical History Past Medical History: Osteoarthritis (OA) Additional Past Medical History / Comment(s): Obesity with a BMI of 38, osteoarthritis, COPD/asthma and the patient has worked in construction and he has a [id number]-[id number] smoking history at least. History of Any Multi-Drug Resistant Organisms: None Reported Past Surgical History: Joint Replacement Additional Past Surgical History / Comment(s): left knee, R hip Past Anesthesia/Blood Transfusion Reactions: No Reported Reaction Past Psychological History: No Psychological Hx Reported Smoking Status: Never smoker Past Alcohol Use History: None Reported Past Drug Use History: None Reported - Past Family History Father Additional Family Medical History / Comment(s): Parkinsons disease Mother Family Medical History: Hypertension Medications and Allergies Home Medications Medication Instructions Recorded Confirmed Type Celecoxib [CeleBREX] 200 mg PO HS 03/31/18 05/23/18 History HYDROcodone/APAP 10-325MG [[place] 1 tab PO TID PRN 03/31/18 05/23/18 History 10-325] Aspirin [Adult Low Dose Aspirin EC] 81 mg PO DAILY 04/02/18 05/23/18 History Montelukast [Singulair] 10 mg PO HS #30 tab 04/02/18 05/23/18 Rx Pantoprazole [Protonix] 40 mg PO MARINA #30 radha. 04/02/18 05/23/18 Rx amLODIPine [Norvasc] 5 mg PO DAILY #30 tab 04/02/18 05/23/18 Rx Albuterol Inhaler [Ventolin Hfa 2 puff INHALATION RT-Q4H PRN 05/23/18 05/23/18 History Inhaler] Albuterol Nebulized [Ventolin 2.5 mg INHALATION RT-Q4H PRN 05/23/18 05/23/18 History Nebulized] Cyanocobalamin (Vitamin B-12) 1,000 mcg PO DAILY 05/23/18 05/23/18 History [Vitamin B-12] L.acidoph,Paracasei, B.lactis 1 cap PO DAILY 05/23/18 05/23/18 History [Probiotic] Multivitamins, Thera [Multivitamin 1 tab PO DAILY 05/23/18 05/23/18 History (formulary)] [place]-3 Fatty Acids/Fish Oil [Fish 1 cap PO DAILY 05/23/18 05/23/18 History Oil 1,000 mg Softgel] Ubidecarenone [Co Q-10] 100 mg PO DAILY 05/23/18 05/23/18 History Allergies Allergy/AdvReac Type Severity Reaction Status Date / Time No Known Allergies Allergy Verified 05/23/18 16:23 Physical Exam Vitals: Vital Signs Temp Pulse Pulse Resp BP BP Pulse Ox 05/24/18 16:10 114 H 05/24/18 16:00 98.4 F 117 H 19 146/83 93 L 05/24/18 15:55 118 H 94 L 05/24/18 12:31 92 05/24/18 12:20 92 05/24/18 12:10 98.6 F 98 17 147/80 97 05/24/18 09:50 96 05/24/18 09:40 92 05/24/18 09:30 92 05/24/18 08:00 98.7 F 113 H 19 142/84 90 L 05/24/18 04:00 97.6 F 111 H 20 137/80 97 05/24/18 00:00 99.1 F 104 H 24 135/71 98 05/23/18 20:00 98.5 F 98 23 158/97 05/23/18 19:36 103 H 24 160/81 99 05/23/18 19:03 96 05/23/18 18:49 94 05/23/18 18:40 98.5 F 98 23 158/97 99 05/23/18 18:25 94 05/23/18 18:05 96 05/23/18 18:00 82 20 135/86 99 05/23/18 17:15 100 28 H 115/77 94 L Intake and Output 05/24/18 05/24/18 05/24/18 06:59 14:59 22:59 Intake Total 960 Output Total 350 Balance -350 960 Intake: IV 140 0.9 140 Intake, IV Titration 100 Amount Calcium Gluconate 1 gm In 100 Sodium Chloride 0.9% 100 ml @ 100 mls/hr IVPB ONCE ONE Rx#:[id number] Oral 720 Output: Urine 350 Other: # Voids 3 # Bowel Movements 1 Weight 127 kg Head appears obese, comfortable likely distress Head exam was generally normal. There was no scleral icterus or corneal arcus. Mucous membranes were moist. Neck was supple and without jugular venous distension, thyromegaly, or carotid bruits. Carotids were easily palpable bilaterally. There was no adenopathy. Crowding of the posterior oropharynx and the patient has a Mallampati class IV Lungs sounds are diminished bilaterally along with diffuse expiratory wheezes throughout the lung bartlett bilaterally Cardiac exam revealed the PMI to be normally situated and sized. The rhythm was regular and no extrasystoles were noted during several minutes of auscultation. The first and second heart sounds were normal and physiologic splitting of the second heart sound was noted. There were no murmurs, rubs, clicks, or gallops. Abdominal exam revealed normal bowel sounds. The abdomen was soft, non-tender, and without masses, organomegaly, or appreciable enlargement of the abdominal aorta. Examination of the extremities revealed easily palpable radial, femoral and pedal pulses. There was no cyanosis, clubbing or edema. Examination of the skin revealed no evidence of significant rashes, suspicious appearing nevi or other concerning lesions. Neurologically awake and alert and there is no focal neurological deficit. Results - Laboratory Findings CBC and BMP: 05/24/18 05:54 05/24/18 05:54 Abnormal lab findings: Abnormal Labs 05/23/18 05/23/18 05/24/18 15:45 16:06 05:47 Neutrophils # Lymphocytes # VBG pH 7.46 H VBG HCO3 29 H Potassium Carbon Dioxide BUN 21 H Glucose 146 H POC Glucose (mg/dL) 119 H 05/24/18 05/24/18 05/24/18 05:54 05:54 11:27 Neutrophils # 8.9 H Lymphocytes # 0.7 L VBG pH VBG HCO3 Potassium 6.1 H* Carbon Dioxide 31 H BUN 21 H Glucose 128 H POC Glucose (mg/dL) 132 H 05/24/18 16:13 Neutrophils # Lymphocytes # VBG pH VBG HCO3 Potassium Carbon Dioxide BUN Glucose POC Glucose (mg/dL) 223 H - Diagnostic Findings Chest x-ray: image reviewed Assessment and Plan Plan: Assessment 1 acute tracheal bronchitis with reactive bronchospasm wheezing. Underlying COPD/asthma cannot be completely excluded. CAT scan of the chest shows no acute abnormalities other than some limited infiltration of the lung bases which could be early pneumonia versus atelectasis. No evidence of any COPD. No structural changes in the lungs 2 shortness of breath secondary to above 3 history of smoking 4 obesity with a BMI of 38 5 typical features of obstructive sleep apnea with loud snoring sleep fragmentation and witnessed apneas and this history worked up further on outpatient basis 6 osteoarthritis Plan Reviewed the CAT scan of the chest. Continue Rocephin and Zithromax. Continue DuoNeb nebulized [id number]. IV Solu-Medrol. Optimize pulmonary status and the patient will need outpatient follow-up with a full pulmonary function test. Encourage weight loss. Would benefit also from a sleep study evaluation. Potassium level was at 6.1. This could be hemolyzed. Renal function is stable. The patient will have a repeat potassium level done
[2018-05-24] MEDS: IOPAMIDOL-300 CONTRAST 30 ML VIAL (ORAL USE) PO PRN ×2 (17:19→18:15)
[2018-05-24 18:03] LABS: Potassium 4.9 mmol/L (3.5-5.1)
[2018-05-24] MEDS: AZITHROMYCIN 500 MG TAB PO SCH (18:15)
--- NOTE | 2018-05-24 19:18 | CT ---
EXAMINATION TYPE: CT abdomen pelvis wo con DATE OF EXAM: 05/24/2018 COMPARISON: None HISTORY: Abdominal distention. CT DLP: 1412.4 mGycm Automated exposure control for dose reduction was used. TECHNIQUE: Helical acquisition of images was performed from the lung bases through the pelvis. There is oral contrast. FINDINGS: There is mild subsegmental atelectasis at the lung bases. Heart size is normal. There is no pericardi al effusion. There is no pleural effusion. Stomach appears normal. Liver spleen pancreas gallbladder appear normal. Bile ducts are not dilated. Gallbladder is contracte d. There is no adrenal mass. There is contrast in the renal collecting systems from previous CT scan. Kidneys have normal size and contour. There is no hydronephrosis. Ureters are not dilated. There is contrast in the urinary bladd er. There is no free fluid in the pelvis. There is no inguinal hernia. There is metal artifact from r ight hip prosthesis. There is no mesenteric edema. There is no sign of free air. There is no ascites. Appendix appears normal. I see no evidence of a bowel obstruction. Exam is limited by patient size. I see no bony destructive process. There is some spondylotic changes in the lumbar spine. There is di sc space narrowing throughout the lumbar spine. There is no compression fracture. IMPRESSION: SUBSEGMENTAL ATELECTASIS AT THE LUNG BASES. NO ACUTE ABNORMALITY WITHIN THE ABDOMEN AND PELVIS. NORMAL APPENDIX.
--- NOTE | 2018-05-24 20:48 | PN ---
PROGRESS NOTE DATE OF SERVICE: 05/24/2018 This 53-year-old gentleman admitted with bronchial asthma acute exacerbation is being closely monitored. Patient needed BiPAP yesterday. The patient still has significant shortness of breath. The patient's lytes are also grossly abnormal this morning with a sodium of 140 and potassium 6.1. Glucose elevated also. PAST MEDICAL HISTORY: Reviewed. REVIEW OF SYSTEMS: CARDIOVASCULAR: No angina. RESPIRATORY: No cough. GI: As mentioned earlier. : No dysuria. NERVOUS SYSTEM: No numbness, weakness. CURRENT MEDICATIONS: 1. Tylenol 500 mg q.6h p.r.n. 2. [place] 10 mg. 3. DuoNeb q.i.d. p.r.n. 4. Norvasc. 5. Zenpep. 6. Aspirin. 7. Zithromax. 8. Pulmicort. 9. Vitamin B12. 10.Perforomist. 11.Heparin. 12.NovoLog. 13.Solu-Medrol 60 IV q.6. 14.Vitamin C. 15.Protonix. PHYSICAL EXAM: Patient is alert, oriented x3. Pulse 117, blood pressure 140/83, respiration 19, temperature 98.4, pulse ox 93 percent on room air. HEENT: Conjunctivae normal. Oral mucosa moist. Neck is no jugular venous distention. No lymph node enlargement. CARDIOVASCULAR: S1, S2 muffled. RESPIRATORY SYSTEM: Breath sounds diminished at the bases. Bilateral scattered rhonchi and crackles. Expiratory wheezing. ABDOMEN: Soft, nontender. No mass palpable. LEGS: No edema. NERVOUS SYSTEM: No focal deficits. LABS: At this time shows WBC 9.2, hemoglobin 13, sodium 140, potassium 6.1. CT chest showed bibasilar atelectasis. ASSESSMENT: 1. Acute bronchial asthma acute exacerbation with acute purulent tracheobronchitis with acute hypoxic respiratory failure on BiPAP. 2. History of bronchial asthma, chronic intermittent. 3. Hyperkalemia. 4. Abdominal distention. 5. History of degenerative joint disease. 6. Bibasilar atelectasis. 7. Obesity with body mass index 38. RECOMMENDATIONS AND DISCUSSION I recommend to continue current management, continue monitoring, continue symptomatic treatment. Continue with antibiotics and the intensive bronchodilators and continue with IV steroids. I would also recommend close follow with Pulmonary and I would also recommend a CT scan of the abdomen pelvis without IV contrast. Otherwise I would also recommend oral contrast also to be used as well. The prognosis guarded because of multiple complex medical issues. Further recommendations to follow. See orders for details. As mentioned earlier we will repeat the lytes and Kayexalate has been given. The potassium is still elevated. We will continue to monitor. Further recommendations to follow. MMODL / IJN: [id number] /
[2018-05-24 21:07] LABS: Glucose,Whole Blood 183 mg/dL (75-99)
[2018-05-24] MEDS: CYANOCOBALAMIN 500 MCG TAB PO SCH (21:41)
[2018-05-24] MEDS: MONTELUKAST 10 MG TAB PO SCH (21:41)
[2018-05-25] MEDS: INSULIN ASPART (NovoLOG) 100 UNIT/ML VIAL SQ SCH ×4 (07:03→22:54)
[2018-05-25] MEDS: PANTOPRAZOLE 40 MG TABLET PO SCH (07:03)
[2018-05-25 07:56] LABS: Basophils % (A) 0 %; Eosinophils % (A) 0 %; HCT 40.6 % (39.0-53.0); HGB 12.7 gm/dL (13.0-17.5); Lymphocytes # (A) 0.9 k/uL (1.0-4.8); Lymphocytes % (A) 6 %; MCH 29.9 pg (25.0-35.0); MCHC 31.4 g/dL (31.0-37.0); MCV 95.4 fL (80.0-100.0); Mean Platelet Volume 7.4; Monocytes # (A) 0.7 k/uL (0-1.0); Monocytes % (A) 4 %; Neutrophils # (A) 13.9 k/uL (1.3-7.7); Neutrophils % (A) 89 %; Platelet Count 295 k/uL (150-450); RBC 4.26 m/uL (4.30-5.90); RDW 14.9 % (11.5-15.5); WBC 15.7 k/uL (3.8-10.6)
[2018-05-25 08:17] LABS: Anion Gap 9 mmol/L; Blood Urea Nitrogen 20 mg/dL (9-20); Calcium 9.1 mg/dL (8.4-10.2); Carbon Dioxide 28 mmol/L (22-30); Chloride 103 mmol/L (98-107); Glucose 129 mg/dL (74-99); Potassium 4.6 mmol/L (3.5-5.1); Sodium 140 mmol/L (137-145)
[2018-05-25] MEDS: BUDESONIDE 1 MG/2 ML NEBU INHALATION SCH ×2 (08:39→20:27)
[2018-05-25] MEDS: FORMOTEROL FUMARATE 20 MCG/2 ML NEBU INHALATION SCH ×2 (08:39→20:27)
[2018-05-25] MEDS: IPRATROPIUM-ALBUTEROL 3 ML NEB INHALATION SCH ×4 (08:39→20:27)
[2018-05-25] MEDS: methylPREDNISolone SOD SUCCI 125 MG/2 ML VIAL IV SCH ×3 (08:49→16:57)
[2018-05-25] MEDS: LIPASE 5,000/PROTEASE 17,000/AMYLASE 24,000 PO SCH (08:49)
[2018-05-25] MEDS: HEPARIN SODIUM,PORCINE 5,000 UNIT/ML 1 ML VIAL SQ SCH ×2 (08:49→20:18)
[2018-05-25] MEDS: amLODIPine 5 MG TAB PO SCH (08:49)
[2018-05-25] MEDS: ASPIRIN 81 MG PO SCH (08:49)
[2018-05-25] MEDS: MULTIVITAMINS, THERA 1 EACH TAB PO SCH (08:49)
--- NOTE | 2018-05-25 10:59 | P.CONS ---
History of Present Illness - Reason for Consult Consult date: 05/25/18 Rectal bleeding Requesting physician: Shonna Owusu - Chief Complaint Dyspnea - History of Present Illness 53-year-old gentleman morbidly obese obstructive sleep apnea asthma COPD admitted with dyspnea. Consult requested for rectal bleeding. According to the patient has been having intermittent painless sometimes painful rectal bleeding since March. He describes it as bright red when wiping. Denies gross hematochezia melena or hematemesis. Last colonoscopy approximately 5 years ago to his memory was unremarkable he was told to come back in 10 years, this was performed in the [facility]. No weight loss, denies constipation or diarrhea. Sometimes this discomfort is perirectal in nature sometimes in the lower abdomen. No history of personal a familial inflammatory bowel diseases. No history of colorectal cancers. Admission hemoglobin 14 presently 12.5. White count 15.7. Influenza negative. BUN 20. Creatinine 0.8. Denies excessive usage of NSAIDs aspirin. No alcohol. CT abdomen no acute abnormality. Review of Systems RConstitutional: Denies fever, chills, sweats, weight gain, or loss. HEENT: Negative for migraines, blurred vision or loss, earaches, drainage, tinnitus, oral mucosal lesions, dysphagia, or odynophagia. Cardiac: Negative for chest pain, arrhythmias, or palpitation. Respiratory: Positive shortness of breath, denies hemoptysis, cough, or sputum production. Gastrointestinal: See HPI for pertinent findings. Genitourinary: Negative for hematuria, urgency, frequency, polyuria, dysuria, or penile discharge. Musculoskeletal: Negative for muscle aches, swelling, arthritis, and arthralgias. Neurologic: Negative for stroke or TIA. Endocrine: Negative for thyroid problems. Skin: Negative for rash or itching. Psychiatric: Negative history for depression and anxiety Past Medical History Past Medical History: Osteoarthritis (OA) Additional Past Medical History / Comment(s): Obesity with a BMI of 38, osteoarthritis, COPD/asthma and the patient has worked in construction and he has a [id number] smoking history at least. History of Any Multi-Drug Resistant Organisms: None Reported Past Surgical History: Joint Replacement Additional Past Surgical History / Comment(s): left knee, R hip Past Anesthesia/Blood Transfusion Reactions: No Reported Reaction Past Psychological History: No Psychological Hx Reported Smoking Status: Never smoker Past Alcohol Use History: None Reported Past Drug Use History: None Reported - Past Family History Father Additional Family Medical History / Comment(s): Parkinsons disease Mother Family Medical History: Hypertension Medications and Allergies Home Medications Medication Instructions Recorded Confirmed Type Celecoxib [CeleBREX] 200 mg PO HS 03/31/18 05/23/18 History HYDROcodone/APAP 10-325MG [[place] 1 tab PO TID PRN 03/31/18 05/23/18 History 10-325] Aspirin [Adult Low Dose Aspirin EC] 81 mg PO DAILY 04/02/18 05/23/18 History Montelukast [Singulair] 10 mg PO HS #30 tab 04/02/18 05/23/18 Rx Pantoprazole [Protonix] 40 mg PO AC-BRKFST #30 tablet.dr 04/02/18 05/23/18 Rx amLODIPine [Norvasc] 5 mg PO DAILY #30 tab 04/02/18 05/23/18 Rx Albuterol Inhaler [Ventolin Hfa 2 puff INHALATION RT-Q4H PRN 05/23/18 05/23/18 History Inhaler] Albuterol Nebulized [Ventolin 2.5 mg INHALATION RT-Q4H PRN 05/23/18 05/23/18 History Nebulized] Cyanocobalamin (Vitamin B-12) 1,000 mcg PO DAILY 05/23/18 05/23/18 History [Vitamin B-12] L.acidoph,Paracasei, B.lactis 1 cap PO DAILY 05/23/18 05/23/18 History [Probiotic] Multivitamins, Thera [Multivitamin 1 tab PO DAILY 05/23/18 05/23/18 History (formulary)] [place]-3 Fatty Acids/Fish Oil [Fish 1 cap PO DAILY 05/23/18 05/23/18 History Oil 1,000 mg Softgel] Ubidecarenone [Co Q-10] 100 mg PO DAILY 05/23/18 05/23/18 History Allergies Allergy/AdvReac Type Severity Reaction Status Date / Time No Known Allergies Allergy Verified 05/23/18 16:23 Physical Exam Vitals: Vital Signs Temp Pulse Pulse Resp BP BP Pulse Ox 05/25/18 09:19 96.9 F L 109 H 20 150/90 94 L 05/25/18 08:56 110 H 05/25/18 08:55 110 H 05/25/18 08:53 100 18 05/25/18 08:42 114 H 92 L 05/25/18 04:00 100 18 163/79 94 L 05/25/18 03:57 18 05/25/18 00:00 98.9 F 111 H 17 139/69 05/24/18 20:17 114 H 05/24/18 20:06 116 H 05/24/18 19:56 98 05/24/18 19:52 118 H 05/24/18 19:43 116 H 18 05/24/18 19:40 99.4 F 116 H 18 139/72 05/24/18 16:10 114 H 05/24/18 16:00 98.4 F 117 H 19 146/83 93 L 05/24/18 15:55 118 H 94 L 05/24/18 12:31 92 05/24/18 12:20 92 05/24/18 12:10 98.6 F 98 17 147/80 97 Intake and Output 05/24/18 05/25/18 05/25/18 22:59 06:59 14:59 Intake Total 30 80 480 Output Total 300 Balance 30 80 180 Intake: IV 30 80 0.9 30 80 Oral 480 Output: Urine 300 Other: Voiding Method Urinal # Voids 1 Weight 128.9 kg General appearance: The patient is alert, oriented, in no acute distress. HET: Head is normocephalic and atraumatic. Pupils are equal and reactive. Oropharynx is clear without lesions. Neck: Supple without lymphadenopathy. Trachea midline. Heart: S1 S2. Regular rate and rhythm. Lungs: Diminished bilaterally. Abdomen: Soft, nontender, nondistended with bowel sounds. No peritoneal signs. No palpable organomegaly or masses. Extremities: Normal skin color and turgor. No cyanosis, rash, ulceration, clubbing, or edema. Radial and pedal pulses are 2/4 bilaterally. Neurological: No focal deficits. Strength and sensation are grossly intact. Results CBC & Chem 7: 05/25/18 06:52 05/25/18 06:52 Labs: Abnormal Lab Results - Last 24 Hours (Table) 05/24/18 05/24/18 05/24/18 Range/Units 11:27 16:13 20:45 WBC (3.8-10.6) k/uL RBC (4.30-5.90) m/uL Hgb (13.0-17.5) gm/dL Neutrophils # (1.3-7.7) k/uL Lymphocytes # (1.0-4.8) k/uL Glucose (74-99) mg/dL POC Glucose (mg/dL) 132 H 223 H 183 H (75-99) mg/dL 05/25/18 05/25/18 Range/Units 06:52 06:52 WBC 15.7 H (3.8-10.6) k/uL RBC 4.26 L (4.30-5.90) m/uL Hgb 12.7 L (13.0-17.5) gm/dL Neutrophils # 13.9 H (1.3-7.7) k/uL Lymphocytes # 0.9 L (1.0-4.8) k/uL Glucose 129 H (74-99) mg/dL POC Glucose (mg/dL) (75-99) mg/dL Microbiology - Last 24 Hours (Table) 05/23/18 18:30 Blood Culture - Preliminary Blood No Growth after [address] scan - abdomen: report reviewed (Dr. Mukherjee) Assessment and Plan (1) Rectal bleeding Narrative/Plan: 53-year-old male admitted with dyspnea secondary to acute tracheal bronchitis reactive bronchospasm with underlying COPD asthma with reported intermittent sometimes painless rectal bleeding bright red on tissue possible perirectal hemorrhoidal in nature. Underlying inflammatory colitis proctitis colonic diverticular bleed, AVM bleed cannot be entirely excluded even though CT abdomen was reported as normal. Last colonoscopy 5 years ago to his memory was unremarkable. Current Visit: Yes Status: Acute Code(s): K62.5 - HEMORRHAGE OF ANUS AND RECTUM SNOMED Code(s): 82150304 (2) Dyspnea Current Visit: Yes Status: Acute Code(s): R06.00 - DYSPNEA, UNSPECIFIED SNOMED Code(s): 854435819 (3) Obesity (BMI 30-39.9) Current Visit: Yes Status: Acute Code(s): E66.9 - OBESITY, UNSPECIFIED SNOMED Code(s): 428633715 Plan: 1. Colonoscopy was advised however this can be performed outpatient once his pulmonary status is optimized. Inpatient colonoscopy if his rectal bleeding worsens. Continue to monitor CBC daily. Will provide Anusol HC 25 mg per rectum daily at bedtime and evaluate. Will follow closely with you. Thank you for this kind referral and the opportunity to participate in the care of your patient. This consultation was discussed with Dr. Mukherjee. The impression and plan of care have been directed as dictated.
[2018-05-25 12:00] LABS: Glucose,Whole Blood 153 mg/dL (75-99)
[2018-05-25 12:02] LABS: Glucose,Whole Blood 127 mg/dL (75-99)
[2018-05-25] MEDS: MELOXICAM 7.5 MG TAB PO SCH (12:02)
--- NOTE | 2018-05-25 15:48 | P.PN ---
Subjective Progress Note Date: 05/25/18 Principal diagnosis: Acute tracheobronchitis with reactive bronchospasm and wheezing A 53-year-old male patient, an ex-smoker, morbidly obese with typical features of obstructive sleep apnea, was in the hospital back in March for shortness of breath. At that time the patient was given a diagnosis of COPD/asthma yet the patient did not have the opportunity to be further investigated for this matter on outpatient basis. The patient came to our office yesterday acutely bronchospastic and wheezy and short of breath and he was in quite significant respiratory distress. He was diagnosed having COPD/asthma exacerbation and for that reason he was taken to the emergency department. No fever. No chills. No pleurisy. No hemoptysis. Influenza screen was negative. He was hypoxic and his pulse ox was as low as 93-94% on room air. He has a congested cough. Unable to bring up much sputum. Hemoglobin is at 9.8. No aspiration. No travel history. Chest x-ray did not show any acute abnormalities. Following that I ordered a CAT scan of the chest that showed some limited patchy infiltration of the lung bases which could be pneumonia versus atelectasis. The patient is currently hospitalized on a combination of DuoNeb nebulized treatment [id number], Rocephin and Zithromax, IV Solu Medrol 60 mg every 6 hours. Feeling slightly better. He has loud snoring. With this apneas. Excessive somnolence and sleepiness. He is obese with a BMI of 38. He has central obesity. No constipation. No diarrhea. No altered mentation. There is a questionable S3 bright red blood per rectum and for that reason a GI consultation will be requested. Patient's EKG was a normal sinus rhythm. On 05/25/2017 patient seen in follow-up on selective care unit, his up in the recliner, in no acute distress, he states his breathing is improving, he sounds was bronchospastic on today's exam, still has some diffuse wheezes. Currently on room air, with a pulse ox of 94%, slightly tachycardic with a heart rate up to 120 BPM, afebrile. Culture showed no growth. Patient is on a combination of the paramedics in the form of Zithromax, and Rocephin, nebulized bronchodilators, IV steroids, and starting to improve Objective - Vital Signs Vital signs: Vital Signs Temp 97.3 F L 05/25/18 11:44 Pulse 106 H 05/25/18 12:23 Resp 20 05/25/18 11:44 BP 138/80 05/25/18 11:44 Pulse Ox 98 05/25/18 11:44 Intake & Output 05/24/18 05/25/18 05/25/18 18:59 06:59 18:59 Intake Total 1300 110 840 Output Total 650 Balance 1300 110 190 Weight 128.9 kg Intake: IV 280 110 0.9 280 110 Intake, IV Titration 300 Amount Calcium Gluconate 1 gm In 200 Sodium Chloride 0.9% 100 ml @ 100 mls/hr IVPB ONCE ONE Rx#:[id number] cefTRIAXone 1 gm In 100 Sodium Chloride 0.9% 50 ml @ 100 mls/hr IVPB Q24H [facility] Rx#:[id number] Oral 720 840 Output: Urine 650 Other: Voiding Method Urinal # Voids 3 1 # Bowel Movements 1 - Exam GENERAL EXAM: Alert, pleasant, 53-year-old obese white male, comfortable in no apparent distress. HEAD: Normocephalic/atraumatic. EYES: Normal reaction of pupils, equal size. Conjunctiva pink, sclera white. NOSE: Clear with pink turbinates. THROAT: No erythema or exudates. NECK: No masses, no JVD, no thyroid enlargement, no adenopathy. CHEST: No chest wall deformity. Symmetrical expansion. LUNGS: Equal air entry with diffuse wheezes CVS: Regular rate and rhythm, normal S1 and S2, no gallops, no murmurs, no rubs ABDOMEN: Soft, nontender. No hepatosplenomegaly, normal bowel sounds, no guarding or rigidity. EXTREMITIES: No clubbing, no edema, no cyanosis, 2+ pulses and upper and lower extremities. MUSCULOSKELETAL: Muscle strength and tone normal. SPINE: No scoliosis or deformity SKIN: No rashes CENTRAL NERVOUS SYSTEM: Alert and oriented -3. No focal deficits, tone is normal in all 4 extremities. PSYCHIATRIC: Alert and oriented -3. Appropriate affect. Intact judgment and insight. - Labs CBC & Chem 7: 05/25/18 06:52 05/25/18 06:52 Labs: Abnormal Lab Results - Last 24 Hours (Table) 05/24/18 05/24/18 05/25/18 Range/Units 16:13 20:45 06:00 WBC (3.8-10.6) k/uL RBC (4.30-5.90) m/uL Hgb (13.0-17.5) gm/dL Neutrophils # (1.3-7.7) k/uL Lymphocytes # (1.0-4.8) k/uL Glucose (74-99) mg/dL POC Glucose (mg/dL) 223 H 183 H 153 H (75-99) mg/dL 05/25/18 05/25/18 05/25/18 Range/Units 06:52 06:52 11:11 WBC 15.7 H (3.8-10.6) k/uL RBC 4.26 L (4.30-5.90) m/uL Hgb 12.7 L (13.0-17.5) gm/dL Neutrophils # 13.9 H (1.3-7.7) k/uL Lymphocytes # 0.9 L (1.0-4.8) k/uL Glucose 129 H (74-99) mg/dL POC Glucose (mg/dL) 127 H (75-99) mg/dL Microbiology - Last 24 Hours (Table) 05/23/18 18:30 Blood Culture - Preliminary Blood No Growth after 24 hours Assessment and Plan Plan: 1 acute tracheal bronchitis with reactive bronchospasm wheezing. Underlying COPD/asthma cannot be completely excluded. CAT scan of the chest shows no acute abnormalities other than some limited infiltration of the lung bases which could be early pneumonia versus atelectasis. No evidence of any COPD. No structural changes in the lungs 2 shortness of breath secondary to above 3 history of smoking 4 obesity with a BMI of 38 5 typical features of obstructive sleep apnea with loud snoring sleep fragmentation and witnessed apneas and this history worked up further on outpatient basis 6 osteoarthritis Plan: Continue current medical treatment, continue Zithromax and Rocephin, current dose of IV steroids and nebulized bronchodilators, no fever no chills, blood culture showed no growth, patient is starting to improve, but not ready for discharge, still bronchospastic, but breathing easier. We'll continue to follow I performed a history & physical examination of the patient and discussed their management with my nurse practitioner, Terese Galarza. I reviewed the nurse practitioner's note and agree with the documented findings and plan of care. Lung sounds are positive for diffuse wheezes throughout the lung bartlett. The findings and the impression was discussed with the patient. I attest to the documentation by the nurse practitioner. Time with Patient: Less than 30
[2018-05-25 16:14] LABS: Glucose,Whole Blood 151 mg/dL (75-99)
[2018-05-25] MEDS: AZITHROMYCIN 500 MG TAB PO SCH (16:57)
--- NOTE | 2018-05-25 19:55 | PN ---
PROGRESS NOTE DATE OF SERVICE: 05/25/2018 This 53-year-old gentleman who was admitted with acute bronchial asthma, acute exacerbation, also had acute respiratory failure. The patient is on BiPAP. The patient also had abdominal distention and CT scan of the abdomen and pelvis was done which showed atelectasis. No acute abnormalities in the abdomen. No chest pain. No palpitations. No fever. On exam, alert and oriented x3. Pulse is 112, blood pressure 141/68, respiration 20, temperature 97.5, pulse ox 94% on room air. HEENT: Conjunctivae normal. NECK: No jugular venous distention. CARDIOVASCULAR SYSTEM: S1, S2 muffled. RESPIRATORY SYSTEM: Breath sounds diminished at the bases. Bilateral scattered rhonchi and expiratory wheezing also present. ABDOMEN: Soft. Obese. Non-tender. No mass palpable. LEGS: No edema. No swelling. NERVOUS SYSTEM: No focal deficit. Labs at this time show WBC 15.7, hemoglobin 12.7. ASSESSMENT: 1. Acute bronchial asthma, acute exacerbation with acute purulent tracheobronchitis with acute hypoxic respiratory failure, status post BiPAP. 2. History of bronchial asthma, chronic intermittent. 3. Hyperkalemia. 4. Abdominal distention. 5. History of degenerative joint disease. 6. Bibasilar atelectasis. 7. Obesity with body mass index of 38. RECOMMENDATIONS AND DISCUSSION: I recommend to continue current medications, continue with symptomatic treatment. Continue with the bronchodilators. Continue to follow with Pulmonary. Taper the steroids. Continue the antibiotics. Further recommendations to follow. MMODL / IJN: [id number] /
[2018-05-25] MEDS: CYANOCOBALAMIN 500 MCG TAB PO SCH (20:17)
[2018-05-25] MEDS: ALPRAZolam 0.25 MG TAB PO PRN (20:17)
[2018-05-25] MEDS: MONTELUKAST 10 MG TAB PO SCH (20:18)
[2018-05-25] MEDS: HYDROCORTISONE SUPPOSITORY 25 MG SUPP RECTAL SCH (20:18)
[2018-05-25 21:40] LABS: Glucose,Whole Blood 117 mg/dL (75-99)
[2018-05-25] MEDS: methylPREDNISolone SOD SUCCI 40 MG/ML 1 ML VIAL IV SCH (22:56)
[2018-05-26] MEDS: PANTOPRAZOLE 40 MG TABLET PO SCH (06:36)
[2018-05-26] MEDS: INSULIN ASPART (NovoLOG) 100 UNIT/ML VIAL SQ SCH ×4 (06:36→20:51)
[2018-05-26 06:57] LABS: Glucose,Whole Blood 116 mg/dL (75-99)
[2018-05-26 07:10] LABS: Basophils % (A) 0 %; Eosinophils % (A) 0 %; HCT 39.8 % (39.0-53.0); HGB 12.7 gm/dL (13.0-17.5); Lymphocytes # (A) 0.9 k/uL (1.0-4.8); Lymphocytes % (A) 7 %; MCH 30.3 pg (25.0-35.0); MCHC 31.8 g/dL (31.0-37.0); MCV 95.2 fL (80.0-100.0); Mean Platelet Volume 7.1; Monocytes # (A) 0.7 k/uL (0-1.0); Monocytes % (A) 5 %; Neutrophils # (A) 11.3 k/uL (1.3-7.7); Neutrophils % (A) 87 %; Platelet Count 270 k/uL (150-450); RBC 4.19 m/uL (4.30-5.90); RDW 14.7 % (11.5-15.5)
[2018-05-26 07:29] LABS: Anion Gap 5 mmol/L; Blood Urea Nitrogen 18 mg/dL (9-20); Calcium 8.9 mg/dL (8.4-10.2); Carbon Dioxide 31 mmol/L (22-30); Chloride 104 mmol/L (98-107); Glucose 123 mg/dL (74-99); Potassium 4.8 mmol/L (3.5-5.1); Sodium 140 mmol/L (137-145)
[2018-05-26] MEDS: IPRATROPIUM-ALBUTEROL 3 ML NEB INHALATION SCH ×4 (08:15→23:17)
[2018-05-26] MEDS: BUDESONIDE 1 MG/2 ML NEBU INHALATION SCH ×2 (08:15→23:17)
[2018-05-26] MEDS: FORMOTEROL FUMARATE 20 MCG/2 ML NEBU INHALATION SCH ×2 (08:15→23:17)
[2018-05-26] MEDS: methylPREDNISolone SOD SUCCI 40 MG/ML 1 ML VIAL IV SCH (09:02)
[2018-05-26] MEDS: MELOXICAM 7.5 MG TAB PO SCH (09:03)
[2018-05-26] MEDS: HEPARIN SODIUM,PORCINE 5,000 UNIT/ML 1 ML VIAL SQ SCH ×2 (09:03→20:51)
[2018-05-26] MEDS: MULTIVITAMINS, THERA 1 EACH TAB PO SCH (09:03)
[2018-05-26] MEDS: amLODIPine 5 MG TAB PO SCH (09:04)
[2018-05-26] MEDS: LIPASE 5,000/PROTEASE 17,000/AMYLASE 24,000 PO SCH (09:04)
[2018-05-26] MEDS: ASPIRIN 81 MG PO SCH (09:04)
[2018-05-26] MEDS: HYDROcodone/APAP 10-325MG 1 EACH TAB PO PRN ×2 (09:20→17:32)
[2018-05-26 12:24] LABS: Glucose,Whole Blood 115 mg/dL (75-99)
[2018-05-26] MEDS ORDERED: POLYETHYLENE GLYCOL 3350 17 GM POWD.PACK PO STA (14:22)
[2018-05-26] MEDS: methylPREDNISolone SOD SUCCI 125 MG/2 ML VIAL IV SCH ×3 (14:40→23:18)
--- NOTE | 2018-05-26 15:22 | P.PN ---
Subjective Progress Note Date: 05/26/18 Principal diagnosis: Acute tracheobronchitis with reactive bronchospasm and wheezing A 53-year-old male patient, an ex-smoker, morbidly obese with typical features of obstructive sleep apnea, was in the hospital back in March for shortness of breath. At that time the patient was given a diagnosis of COPD/asthma yet the patient did not have the opportunity to be further investigated for this matter on outpatient basis. The patient came to our office yesterday acutely bronchospastic and wheezy and short of breath and he was in quite significant respiratory distress. He was diagnosed having COPD/asthma exacerbation and for that reason he was taken to the emergency department. No fever. No chills. No pleurisy. No hemoptysis. Influenza screen was negative. He was hypoxic and his pulse ox was as low as 93-94% on room air. He has a congested cough. Unable to bring up much sputum. Hemoglobin is at 9.8. No aspiration. No travel history. Chest x-ray did not show any acute abnormalities. Following that I ordered a CAT scan of the chest that showed some limited patchy infiltration of the lung bases which could be pneumonia versus atelectasis. The patient is currently hospitalized on a combination of DuoNeb nebulized treatment [id number], Rocephin and Zithromax, IV Solu Medrol 60 mg every 6 hours. Feeling slightly better. He has loud snoring. With this apneas. Excessive somnolence and sleepiness. He is obese with a BMI of 38. He has central obesity. No constipation. No diarrhea. No altered mentation. There is a questionable S3 bright red blood per rectum and for that reason a GI consultation will be requested. Patient's EKG was a normal sinus rhythm. On 05/25/2017 patient seen in follow-up on selective care unit, his up in the recliner, in no acute distress, he states his breathing is improving, he sounds was bronchospastic on today's exam, still has some diffuse wheezes. Currently on room air, with a pulse ox of 94%, slightly tachycardic with a heart rate up to 120 BPM, afebrile. Culture showed no growth. Patient is on a combination of the paramedics in the form of Zithromax, and Rocephin, nebulized bronchodilators, IV steroids, and starting to improve The patient is seen today 05/26/2018 in follow-up on the selective care unit. He is currently sitting up in a chair at the bedside. He is awake and alert in no acute distress. He is breathing better today as compared to yesterday but still not back to his baseline. Still somewhat bronchospastic and wheezy. Still dyspneic with minimal exertion. He is maintaining O2 saturations in the low 90s on room air. White count 13.0. Hemoglobin 12.7. Creatinine 0.79. He remains on DuoNeb inhalations, IV Solu-Medrol, empiric antibiotics in the form of Zithromax. Objective - Vital Signs Vital signs: Vital Signs Temp 97.8 F 05/26/18 04:00 Pulse 104 H 05/26/18 12:00 Resp 16 05/26/18 12:00 BP 163/88 05/26/18 12:00 Pulse Ox 93 L 05/26/18 12:00 Intake & Output 05/25/18 05/26/18 05/26/18 18:59 06:59 18:59 Intake Total 1200 100 880 Output Total 650 400 Balance 550 -300 880 Weight 128.9 kg 128.4 kg Intake: IV 160 0.9 160 Intake, IV Titration 100 Amount cefTRIAXone 1 gm In 100 Sodium Chloride 0.9% 50 ml @ 100 mls/hr IVPB Q24H [facility] Rx#:[id number] Oral 1200 720 Output: Urine 650 400 Other: Voiding Method Urinal Urinal Urinal # Voids 1 - Exam GENERAL EXAM: Morbidly obese. Alert, active, comfortable in no apparent distress. On room air. HEAD: Normocephalic. EYES: Normal reaction of pupils, equal size. NOSE: Clear with pink turbinates. THROAT: No erythema or exudates. NECK: No masses, no JVD. CHEST: No chest wall deformity. LUNGS: Equal air entry with lateral wheezing, diminished. CVS: S1 and S2 normal with no audible murmur, regular rhythm. ABDOMEN: No hepatosplenomegaly, normal bowel sounds, no guarding or rigidity. SPINE: No scoliosis or deformity SKIN: No rashes CENTRAL NERVOUS SYSTEM: No focal deficits, tone is normal in all 4 extremities. EXTREMITIES: There is no peripheral edema. No clubbing, no cyanosis. Peripheral pulses are intact. - Labs CBC & Chem 7: 05/26/18 06:32 05/26/18 06:32 Labs: Abnormal Lab Results - Last 24 Hours (Table) 05/25/18 05/25/18 05/26/18 Range/Units 16:08 21:27 06:32 WBC 13.0 H (3.8-10.6) k/uL RBC 4.19 L (4.30-5.90) m/uL Hgb 12.7 L (13.0-17.5) gm/dL Neutrophils # 11.3 H (1.3-7.7) k/uL Lymphocytes # 0.9 L (1.0-4.8) k/uL Carbon Dioxide (22-30) mmol/L Glucose (74-99) mg/dL POC Glucose (mg/dL) 151 H 117 H (75-99) mg/dL 05/26/18 05/26/18 05/26/18 Range/Units 06:32 06:34 12:16 WBC (3.8-10.6) k/uL RBC (4.30-5.90) m/uL Hgb (13.0-17.5) gm/dL Neutrophils # (1.3-7.7) k/uL Lymphocytes # (1.0-4.8) k/uL Carbon Dioxide 31 H (22-30) mmol/L Glucose 123 H (74-99) mg/dL POC Glucose (mg/dL) 116 H 115 H (75-99) mg/dL Microbiology - Last 24 Hours (Table) 05/23/18 18:30 Blood Culture - Preliminary Blood No Growth after 48 hours Assessment and Plan Assessment: Impression: 1 acute tracheal bronchitis with reactive bronchospasm wheezing. Underlying COPD/asthma cannot be completely excluded. CAT scan of the chest shows no acute abnormalities other than some limited infiltration of the lung bases which could be early pneumonia versus atelectasis. No evidence of any COPD. No structural changes in the lungs 2 shortness of breath secondary to above 3 history of smoking 4 obesity with a BMI of 38 5 typical features of obstructive sleep apnea with loud snoring sleep fragmentation and witnessed apneas and this history worked up further on outpatient basis 6 osteoarthritis Plan: The patient was seen and evaluated by Dr. Owusu. We did go ahead and bump his IV Solu-Medrol back to 60 every 6 hours. He is still somewhat bronchospastic and wheezy. We'll increase his activity as tolerated. Continue with the rest of the treatment program. We'll continue to follow. I, the cosigning physician, performed a history & physical examination of the patient. Lungs sounds bilateral end expiratory wheeze, diminished. Maintaining good O2 saturations in the 90s on room air. I discussed the assessment and plan of care with my nurse practitioner, Nicolle Phelps. I attest to the above note as dictated by her.
--- NOTE | 2018-05-26 15:55 | P.PN ---
Subjective Progress Note Date: 05/26/18 Principal diagnosis: Tracheobronchitis, blood per rectum And seen sitting bedside. He still reporting blood per rectum. He does feel that he may be constipated and not having complete evacuation. Does report starting Anusol nightly last night. Objective - Vital Signs Vital signs: Vital Signs Temp 97.4 F L 05/26/18 15:20 Pulse 97 05/26/18 15:20 Resp 16 05/26/18 15:20 BP 161/91 05/26/18 15:20 Pulse Ox 94 L 05/26/18 15:20 Intake & Output 05/25/18 05/26/18 05/26/18 18:59 06:59 18:59 Intake Total 1200 100 880 Output Total 650 400 Balance 550 -300 880 Weight 128.9 kg 128.4 kg Intake: IV 160 0.9 160 Intake, IV Titration 100 Amount cefTRIAXone 1 gm In 100 Sodium Chloride 0.9% 50 ml @ 100 mls/hr IVPB Q24H [facility] Rx#:[id number] Oral 1200 720 Output: Urine 650 400 Other: Voiding Method Urinal Urinal Urinal # Voids 1 - Exam On physical examination, patient appears comfortable in no apparent distress. HEAD: Normocephalic, atraumatic. EYES: No scleral icterus. No conjunctival injection. MOUTH: No lesions, tongue midline. NECK: Trachea midline, no gross abnormalities. CHEST: Clear to auscultation with no wheezing or rhonchi appreciated. HEART: Regular rate and rhythm. ABDOMEN: Soft, obese. Bowel sounds are positive. No organomegaly. No guarding or rigidity. EXTREMITIES: No pedal edema. SKIN: No rashes, no jaundice. NEUROLOGIC: Alert and oriented x3. No focal deficits. - Labs CBC & Chem 7: 05/26/18 06:32 05/26/18 06:32 Labs: Abnormal Lab Results - Last 24 Hours (Table) 05/25/18 05/25/18 05/26/18 Range/Units 16:08 21:27 06:32 WBC 13.0 H (3.8-10.6) k/uL RBC 4.19 L (4.30-5.90) m/uL Hgb 12.7 L (13.0-17.5) gm/dL Neutrophils # 11.3 H (1.3-7.7) k/uL Lymphocytes # 0.9 L (1.0-4.8) k/uL Carbon Dioxide (22-30) mmol/L Glucose (74-99) mg/dL POC Glucose (mg/dL) 151 H 117 H (75-99) mg/dL 05/26/18 05/26/18 05/26/18 Range/Units 06:32 06:34 12:16 WBC (3.8-10.6) k/uL RBC (4.30-5.90) m/uL Hgb (13.0-17.5) gm/dL Neutrophils # (1.3-7.7) k/uL Lymphocytes # (1.0-4.8) k/uL Carbon Dioxide 31 H (22-30) mmol/L Glucose 123 H (74-99) mg/dL POC Glucose (mg/dL) 116 H 115 H (75-99) mg/dL Microbiology - Last 24 Hours (Table) 05/23/18 18:30 Blood Culture - Preliminary Blood No Growth after 48 hours Assessment and Plan (1) Rectal bleeding Narrative/Plan: Patient with reports of chronic blood per rectum. Last colonoscopy approximately 3-4 years ago in [place] and was essentially negative per the patient's reports. Despite reporting large amount of blood per rectum the patient's hemoglobin has remained stable at 12.7 from 1.7 yesterday. Case was discussed with the nursing staff will report that the patient is passing blood however state that the quantity the patient describing is somewhat exaggerated. Given the patient's hemodynamic stability and his normal hemoglobin is likely that the patient has hemorrhoidal disease and has been started on Anusol therapy. Differential also includes proctocolitis, AVM, diverticular bleed, or other etiology. The patient would benefit from a colonoscopy however this would probably be safest in the outpatient setting once pulmonary issues are optimized. Current Visit: Yes Status: Acute Code(s): K62.5 - HEMORRHAGE OF ANUS AND RECTUM SNOMED Code(s): 94312863 Plan: Supportive care Okay for diet Monitor hemoglobin and transfuse as needed Continue Anusol therapy MiraLAX has been added with 1 dose given, and a standing order for as needed MiraLAX Continue to monitor symptomatically Plan for colonoscopy with timing to be determined based on patient's symptoms, hemodynamics and laboratory evaluation, likely as an outpatient, however if further symptoms occur will reevaluate for further workup while hospitalized Thank you for allowing us to participate in the care of the patient we will continue to follow
[2018-05-26 17:07] LABS: Glucose,Whole Blood 164 mg/dL (75-99)
[2018-05-26] MEDS: AZITHROMYCIN 500 MG TAB PO SCH (17:31)
--- NOTE | 2018-05-26 20:11 | PN ---
PROGRESS NOTE DATE OF SERVICE: 05/26/2018 This 53-year-old gentleman who was admitted with acute bronchial asthma with acute purulent tracheobronchitis is being closely monitored. No chest pain. No palpitations. No fever. The patient also had some GI bleed and the patient was seen some blood from the rectum and the patient also used some Anusol last night. Gastroenterology is recommending to continue the Anusol treatment and colonoscopy probably as outpatient. No chest pain. No palpitations. No fever. EXAM: Alert and oriented x3. The pulse is 97, blood pressure 161/91, respirations 16, temperature 97.4, pulse ox 94% on 2 L. HEENT: Conjunctivae normal. NECK: No jugular venous distention. CARDIOVASCULAR: S1, S2 muffled. Respirations: Breath sounds diminished in the bases. A few scattered rhonchi and expiratory wheezing. Abdomen soft, obese. Legs are no edema. No swelling. LABS: WBC 13.3, hemoglobin 12.7. Glucose 116. ASSESSMENT: 1. Acute bronchial asthma, acute exacerbation with acute purulent tracheobronchitis with acute hypoxic respiratory failure status post BiPAP. 2. History of bronchial asthma, chronic intermittent. 3. Hyperkalemia. 4. Abdominal distention. 5. Rectal bleeding on conservative line of management. 6. History of degenerative joint disease. 7. Bibasilar atelectasis. 8. Obesity with body mass index of 38. RECOMMENDATIONS AND DISCUSSION: Recommend to continue current medications, management and symptomatic treatment. Continue the bronchodilators. Continue the rest of medications. Hold the aspirin at this time. Otherwise, closely follow with Dr. Mukherjee. Further recommendations to follow. MMODL / IJN: [id number] /
[2018-05-26 20:46] LABS: Glucose,Whole Blood 136 mg/dL (75-99)
[2018-05-26] MEDS: CYANOCOBALAMIN 500 MCG TAB PO SCH (20:51)
[2018-05-26] MEDS: MONTELUKAST 10 MG TAB PO SCH (20:51)
[2018-05-26] MEDS: ALPRAZolam 0.25 MG TAB PO PRN (21:41)
[2018-05-26] MEDS: HYDROCORTISONE SUPPOSITORY 25 MG SUPP RECTAL SCH (21:41)
[2018-05-27] MEDS: BUDESONIDE 1 MG/2 ML NEBU INHALATION SCH ×3 (00:04→19:59)
[2018-05-27] MEDS: FORMOTEROL FUMARATE 20 MCG/2 ML NEBU INHALATION SCH ×3 (00:04→19:59)
[2018-05-27] MEDS: methylPREDNISolone SOD SUCCI 125 MG/2 ML VIAL IV SCH ×4 (05:09→23:07)
[2018-05-27 07:01] LABS: Glucose,Whole Blood 130 mg/dL (75-99)
[2018-05-27] MEDS: INSULIN ASPART (NovoLOG) 100 UNIT/ML VIAL SQ SCH ×4 (07:08→21:03)
[2018-05-27] MEDS: MELOXICAM 7.5 MG TAB PO SCH (07:09)
[2018-05-27] MEDS: LIPASE 5,000/PROTEASE 17,000/AMYLASE 24,000 PO SCH (07:09)
[2018-05-27] MEDS: POLYETHYLENE GLYCOL 3350 17 GM POWD.PACK PO SCH (07:10)
[2018-05-27] MEDS: amLODIPine 5 MG TAB PO SCH (07:10)
[2018-05-27] MEDS: PANTOPRAZOLE 40 MG TABLET PO SCH (07:10)
[2018-05-27] MEDS: HEPARIN SODIUM,PORCINE 5,000 UNIT/ML 1 ML VIAL SQ SCH ×2 (07:10→21:03)
[2018-05-27] MEDS: IPRATROPIUM-ALBUTEROL 3 ML NEB INHALATION SCH ×4 (07:11→19:59)
[2018-05-27] MEDS: HYDROcodone/APAP 10-325MG 1 EACH TAB PO PRN ×3 (07:14→23:07)
[2018-05-27 07:25] LABS: Basophils % (A) 0 %; Eosinophils % (A) 0 %; Lymphocytes % (A) 8 %; MCHC 32.5 g/dL (31.0-37.0); MCV 92.1 fL (80.0-100.0); Mean Platelet Volume 6.5; Monocytes # (A) 0.6 k/uL (0-1.0); Monocytes % (A) 5 %; Neutrophils # (A) 10.4 k/uL (1.3-7.7); Neutrophils % (A) 86 %; Platelet Count 314 k/uL (150-450); RBC 4.34 m/uL (4.30-5.90); RDW 14.7 % (11.5-15.5); WBC 12.1 k/uL (3.8-10.6)
[2018-05-27 07:36] LABS: Anion Gap 7 mmol/L; Blood Urea Nitrogen 23 mg/dL (9-20); Carbon Dioxide 29 mmol/L (22-30); Chloride 102 mmol/L (98-107); Glucose 133 mg/dL (74-99); Potassium 4.6 mmol/L (3.5-5.1); Sodium 138 mmol/L (137-145)
[2018-05-27] MEDS: MULTIVITAMINS, THERA 1 EACH TAB PO SCH (11:39)
[2018-05-27 11:54] LABS: Glucose,Whole Blood 100 mg/dL (75-99)
--- NOTE | 2018-05-27 13:41 | P.PN ---
Subjective Progress Note Date: 05/27/18 A 53-year-old male patient, an ex-smoker, morbidly obese with typical features of obstructive sleep apnea, was in the hospital back in March for shortness of breath. At that time the patient was given a diagnosis of COPD/asthma yet the patient did not have the opportunity to be further investigated for this matter on outpatient basis. The patient came to our office yesterday acutely bronchospastic and wheezy and short of breath and he was in quite significant respiratory distress. He was diagnosed having COPD/asthma exacerbation and for that reason he was taken to the emergency department. No fever. No chills. No pleurisy. No hemoptysis. Influenza screen was negative. He was hypoxic and his pulse ox was as low as 93-94% on room air. He has a congested cough. Unable to bring up much sputum. Hemoglobin is at 9.8. No aspiration. No travel history. Chest x-ray did not show any acute abnormalities. Following that I ordered a CAT scan of the chest that showed some limited patchy infiltration of the lung bases which could be pneumonia versus atelectasis. The patient is currently hospitalized on a combination of DuoNeb nebulized treatment [id number], Rocephin and Zithromax, IV Solu Medrol 60 mg every 6 hours. Feeling slightly better. He has loud snoring. With this apneas. Excessive somnolence and sleepiness. He is obese with a BMI of 38. He has central obesity. No constipation. No diarrhea. No altered mentation. There is a questionable S3 bright red blood per rectum and for that reason a GI consultation will be requested. Patient's EKG was a normal sinus rhythm. On 05/25/2017 patient seen in follow-up on selective care unit, his up in the recliner, in no acute distress, he states his breathing is improving, he sounds was bronchospastic on today's exam, still has some diffuse wheezes. Currently on room air, with a pulse ox of 94%, slightly tachycardic with a heart rate up to 120 BPM, afebrile. Culture showed no growth. Patient is on a combination of the paramedics in the form of Zithromax, and Rocephin, nebulized bronchodilators, IV steroids, and starting to improve The patient is seen today 05/26/2018 in follow-up on the selective care unit. He is currently sitting up in a chair at the bedside. He is awake and alert in no acute distress. He is breathing better today as compared to yesterday but still not back to his baseline. Still somewhat bronchospastic and wheezy. Still dyspneic with minimal exertion. He is maintaining O2 saturations in the low 90s on room air. White count 13.0. Hemoglobin 12.7. Creatinine 0.79. He remains on DuoNeb inhalations, IV Solu-Medrol, empiric antibiotics in the form of Zithromax. On 05/27/2018, I'm seeing this patient for a follow-up. He is doing well. Recovery is slow. He still cough and wheezing and shortness of breath. I see some improvement yet I would concur to the fact that the patient is having slow improvement despite being on a combination of bronchodilators and steroids and antibiotics. He has no significant leukocytosis. We'll check a 12.1. His blood cultures been negative for any microbial growth. Note that the CAT scan of the chest that showed some limited basilar atelectatic changes without any focal consolidation. No mediastinal lymphadenopathy. He has typical features of obstructive sleep apnea. This has to be worked up at a later stage. Meanwhile, he is afebrile and his pulse ox on room air is around 91%. No other significant events. He gets short of breath upon walking the hallway is quite limited. Not fully recovered yet and he may need an additional few days of treatment based on the above-mentioned. Objective - Vital Signs Vital signs: Vital Signs Temp 97.9 F 05/27/18 12:30 Pulse 100 05/27/18 12:30 Resp 18 05/27/18 12:30 BP 144/91 05/27/18 12:30 Pulse Ox 91 L 05/27/18 12:30 Intake & Output 05/26/18 05/27/18 05/27/18 18:59 06:59 18:59 Intake Total 880 1180 2650 Output Total 400 400 Balance 572 792 6876 Weight 129.5 kg Intake: IV 160 0.9 160 Oral 720 1180 2650 Output: Urine 400 400 Other: Voiding Method Toilet Toilet Toilet Urinal Urinal # Voids 1 2 4 # Bowel Movements 1 - Exam GENERAL EXAM: Morbidly obese. Alert, active, comfortable in no apparent distress. On room air. The patient has typical features of obstructive sleep apnea HEAD: Normocephalic. EYES: Normal reaction of pupils, equal size. NOSE: Clear with pink turbinates. THROAT: No erythema or exudates. Mallampati class IV NECK: No masses, no JVD. CHEST: No chest wall deformity. LUNGS: Equal air entry with lateral wheezing, diminished. CVS: S1 and S2 normal with no audible murmur, regular rhythm. ABDOMEN: No hepatosplenomegaly, normal bowel sounds, no guarding or rigidity. SPINE: No scoliosis or deformity SKIN: No rashes CENTRAL NERVOUS SYSTEM: No focal deficits, tone is normal in all 4 extremities. EXTREMITIES: There is no peripheral edema. No clubbing, no cyanosis. Peripheral pulses are intact. - Labs CBC & Chem 7: 05/27/18 06:50 05/27/18 06:50 Labs: Abnormal Lab Results - Last 24 Hours (Table) 05/26/18 05/26/18 05/27/18 Range/Units 17:06 20:44 06:50 WBC 12.1 H (3.8-10.6) k/uL Neutrophils # 10.4 H (1.3-7.7) k/uL BUN (9-20) mg/dL Glucose (74-99) mg/dL POC Glucose (mg/dL) 164 H 136 H (75-99) mg/dL 05/27/18 05/27/18 05/27/18 Range/Units 06:50 07:00 11:53 WBC (3.8-10.6) k/uL Neutrophils # (1.3-7.7) k/uL BUN 23 H (9-20) mg/dL Glucose 133 H (74-99) mg/dL POC Glucose (mg/dL) 130 H 100 H (75-99) mg/dL Microbiology - Last 24 Hours (Table) 05/23/18 18:30 Blood Culture - Preliminary Blood No Growth after 72 hours Assessment and Plan Plan: Assessment 1 acute tracheobronchitis with reactive bronchospasm wheezing. Underlying COPD/ asthma cannot be completely excluded. CAT scan of the chest shows no acute abnormalities other than some limited infiltration of the lung bases which could be early pneumonia versus atelectasis. No evidence of any COPD. No structural changes in the lungs. Despite being treated on an inpatient basis for the past few days with a combination of bronchodilators and steroids and antibiotics, the patient remains short of breath bronchospastic and wheezy. He has improved and his pulse ox is up to 91% on room air. Nevertheless, he still having coughing spells, he still having shortness of breath with minimal amount of activity. He still is wheezy. 2 shortness of breath secondary to above 3 history of smoking 4 obesity with a BMI of 38 5 typical features of obstructive sleep apnea with loud snoring sleep fragmentation and witnessed apneas and this history worked up further on outpatient basis 6 osteoarthritis Plan Suggest continue the same treatment. No need to taper the systemic steroids dose for now. Continue same bronchodilators regimen. Continue same antibiotic coverage. Cultures of been all negative. Encourage the patient to ambulate. No retraction therapy as the pulse ox is calm up to 91% on room air. The patient has history of smoking. He may have an underlying COPD/asthma which is exacerbated. He may also have an underlying obstructive sleep apnea that has been left undiagnosed for a while. We'll continue to follow.
[2018-05-27 16:53] LABS: Glucose,Whole Blood 153 mg/dL (75-99)
[2018-05-27] MEDS: AZITHROMYCIN 500 MG TAB PO SCH (17:32)
--- NOTE | 2018-05-27 18:27 | PN ---
PROGRESS NOTE DATE OF SERVICE: 05/27/2018 This 53-year-old gentleman admitted with acute bronchial asthma is improving significantly. Patient has abdominal distention. CT scan did not show any acute abnormality. The patient also has some GI bleed, which is stable at this time. Dr. Owusu is follow the patient closely. No chest pain. No palpitations. No fever. The pulse ox appears to be around 90 after ambulation. The patient is on Solu-Medrol. EXAM: Alert and oriented x3. Pulse 100, blood pressure 140/90, respiration 18, temperature 97.9, pulse ox 94% on room air HEENT: Conjunctivae normal. Oral mucosa moist. NECK: No jugular venous distention. No lymph node enlargement. CARDIOVASCULAR: S1, S2. RESPIRATORY: Diminished breath sounds at the bases. Bilateral scattered rhonchi, no crackles. ABDOMEN: Soft, obese. LEGS: No swelling. NERVOUS SYSTEM: No focal deficits. LAB STUDIES: WBC 2.9, hemoglobin is 13. ASSESSMENT: 1. Acute bronchial asthma, acute exacerbation with acute purulent tracheobronchitis with acute hypoxic respiratory failure status post BiPAP. 2. History of bronchial asthma, chronic, intermittent. 3. Hyperkalemia. 4. Abdominal distention. 5. Rectal bleeding on conservative line of management. 6. History of degenerative joint disease. 7. Bibasilar atelectasis. 8. Obesity with body mass index of 88. RECOMMENDATIONS AND DISCUSSION: Recommend to continue current management, continue symptomatic treatment. Otherwise, will monitor the patient closely, continue the steroids, continue the bronchodilators, continue the antibiotics. Closely follow with Pulmonary. Further recommendations to follow. MMODL / IJN: [id number] /
--- NOTE | 2018-05-27 19:36 | P.PN ---
Subjective Progress Note Date: 05/27/18 Principal diagnosis: Tracheobronchitis, blood per rectum Patient is seen sitting bedside. Reports one bowel movement today with a small amount of blood, appears to be improving. Feels breathing is also improved. Tolerating diet. Objective - Vital Signs Vital signs: Vital Signs Temp 97.9 F 05/27/18 12:30 Pulse 96 05/27/18 15:48 Resp 18 05/27/18 13:48 BP 144/91 05/27/18 12:30 Pulse Ox 91 L 05/27/18 12:30 Intake & Output 05/27/18 05/27/18 05/28/18 06:59 18:59 06:59 Intake Total 1180 2650 Output Total 400 Balance 780 2650 Weight 129.5 kg Intake: Oral 1180 2650 Output: Urine 400 Other: Voiding Method Toilet Toilet Urinal # Voids 2 4 # Bowel Movements 1 - Exam On physical examination, patient appears comfortable in no apparent distress. HEAD: Normocephalic, atraumatic. EYES: No scleral icterus. No conjunctival injection. MOUTH: No lesions, tongue midline. NECK: Trachea midline, no gross abnormalities. CHEST: Decreased air entry in all lung bartlett. HEART: Regular rate and rhythm. ABDOMEN: Soft, obese. Bowel sounds are positive. No organomegaly. No guarding or rigidity. EXTREMITIES: No pedal edema. SKIN: No rashes, no jaundice. NEUROLOGIC: Alert and oriented x3. No focal deficits. - Labs CBC & Chem 7: 05/27/18 06:50 05/27/18 06:50 Labs: Abnormal Lab Results - Last 24 Hours (Table) 05/26/18 05/27/18 05/27/18 Range/Units 20:44 06:50 06:50 WBC 12.1 H (3.8-10.6) k/uL Neutrophils # 10.4 H (1.3-7.7) k/uL BUN 23 H (9-20) mg/dL Glucose 133 H (74-99) mg/dL POC Glucose (mg/dL) 136 H (75-99) mg/dL 05/27/18 05/27/18 05/27/18 Range/Units 07:00 11:53 16:52 WBC (3.8-10.6) k/uL Neutrophils # (1.3-7.7) k/uL BUN (9-20) mg/dL Glucose (74-99) mg/dL POC Glucose (mg/dL) 130 H 100 H 153 H (75-99) mg/dL Microbiology - Last 24 Hours (Table) 05/23/18 18:30 Blood Culture - Preliminary Blood No Growth after 72 hours Assessment and Plan (1) Rectal bleeding Narrative/Plan: Patient with reports of chronic blood per rectum. Last colonoscopy approximately 3-4 years ago in [place] and was essentially negative per the patient's reports. Hemoglobin stable at 13 today from 12.7 yesterday. Given the patient's hemodynamic stability and his normal hemoglobin is likely that the patient has hemorrhoidal disease and has been started on Anusol therapy. Differential also includes proctocolitis, AVM, diverticular bleed, or other etiology. The patient would benefit from a colonoscopy however this would probably be safest in the outpatient setting once pulmonary issues are optimized. Current Visit: Yes Status: Acute Code(s): K62.5 - HEMORRHAGE OF ANUS AND RECTUM SNOMED Code(s): 17041941 Plan: Supportive care Okay for diet Monitor hemoglobin and transfuse as needed Continue Anusol therapy MiraLAX as needed Continue to monitor symptomatically Plan for colonoscopy with timing to be determined based on patient's symptoms, hemodynamics and laboratory evaluation, likely as an outpatient, however if further symptoms occur will reevaluate for further workup while hospitalized Thank you for allowing us to participate in the care of the patient we will continue to follow
[2018-05-27 20:46] LABS: Glucose,Whole Blood 165 mg/dL (75-99)
[2018-05-27] MEDS: CYANOCOBALAMIN 500 MCG TAB PO SCH (21:02)
[2018-05-27] MEDS: MONTELUKAST 10 MG TAB PO SCH (21:03)
[2018-05-27] MEDS: HYDROCORTISONE SUPPOSITORY 25 MG SUPP RECTAL SCH (21:03)
[2018-05-27] MEDS: ALPRAZolam 0.25 MG TAB PO PRN (23:07)
[2018-05-28] MEDS: methylPREDNISolone SOD SUCCI 125 MG/2 ML VIAL IV SCH ×2 (05:32→13:03)
[2018-05-28 07:05] LABS: Glucose,Whole Blood 118 mg/dL (75-99)
[2018-05-28] MEDS: IPRATROPIUM-ALBUTEROL 3 ML NEB INHALATION SCH ×2 (08:03→11:35)
[2018-05-28] MEDS: BUDESONIDE 1 MG/2 ML NEBU INHALATION SCH (08:03)
[2018-05-28] MEDS: FORMOTEROL FUMARATE 20 MCG/2 ML NEBU INHALATION SCH (08:03)
[2018-05-28] MEDS: INSULIN ASPART (NovoLOG) 100 UNIT/ML VIAL SQ SCH ×2 (08:21→11:11)
[2018-05-28] MEDS: HEPARIN SODIUM,PORCINE 5,000 UNIT/ML 1 ML VIAL SQ SCH (08:22)
[2018-05-28] MEDS: amLODIPine 5 MG TAB PO SCH (08:22)
[2018-05-28] MEDS: POLYETHYLENE GLYCOL 3350 17 GM POWD.PACK PO SCH (08:22)
[2018-05-28] MEDS: PANTOPRAZOLE 40 MG TABLET PO SCH (08:22)
[2018-05-28] MEDS: MULTIVITAMINS, THERA 1 EACH TAB PO SCH (08:22)
[2018-05-28] MEDS: MELOXICAM 7.5 MG TAB PO SCH (08:24)
[2018-05-28] MEDS: LIPASE 5,000/PROTEASE 17,000/AMYLASE 24,000 PO SCH (08:24)
[2018-05-28] MEDS: HYDROcodone/APAP 10-325MG 1 EACH TAB PO PRN (08:28)
[2018-05-28 11:06] LABS: Glucose,Whole Blood 100 mg/dL (75-99)
--- NOTE | 2018-05-28 11:24 | XR ---
EXAMINATION TYPE: XR chest 1V portable DATE OF EXAM: 05/28/2018 CLINICAL HISTORY: Difficulty breathing progress study. History of asthma. TECHNIQUE: Single AP portable upright view of the chest is obtained. COMPARISON: Chest x-ray from [address] chest 4 days earlier. FINDINGS: There is persistent left greater than right bibasilar linear scarring and/or atelectasis. No new suspicious focal airspace opacity, pleural effusion, or pneumothorax is seen bilaterally. Card iac silhouette size is stable and within normal limits. Overlying EKG leads are redemonstrated. Ceiba us structures are intact. IMPRESSION: Overall stable findings, persistent left greater than right basilar linear scarring and /or atelectasis. No new suspicious focal infiltrate.
[2018-05-28 12:02] VITALS: BP 154/85; PULSE 100; RESP 22; TEMP 97.3
--- NOTE | 2018-05-28 13:36 | P.PN ---
Subjective Progress Note Date: 05/28/18 Principal diagnosis: Acute tracheobronchitis with reactive bronchospasm and wheezing A 53-year-old male patient, an ex-smoker, morbidly obese with typical features of obstructive sleep apnea, was in the hospital back in March for shortness of breath. At that time the patient was given a diagnosis of COPD/asthma yet the patient did not have the opportunity to be further investigated for this matter on outpatient basis. The patient came to our office yesterday acutely bronchospastic and wheezy and short of breath and he was in quite significant respiratory distress. He was diagnosed having COPD/asthma exacerbation and for that reason he was taken to the emergency department. No fever. No chills. No pleurisy. No hemoptysis. Influenza screen was negative. He was hypoxic and his pulse ox was as low as 93-94% on room air. He has a congested cough. Unable to bring up much sputum. Hemoglobin is at 9.8. No aspiration. No travel history. Chest x-ray did not show any acute abnormalities. Following that I ordered a CAT scan of the chest that showed some limited patchy infiltration of the lung bases which could be pneumonia versus atelectasis. The patient is currently hospitalized on a combination of DuoNeb nebulized treatment [id number], Rocephin and Zithromax, IV Solu Medrol 60 mg every 6 hours. Feeling slightly better. He has loud snoring. With this apneas. Excessive somnolence and sleepiness. He is obese with a BMI of 38. He has central obesity. No constipation. No diarrhea. No altered mentation. There is a questionable S3 bright red blood per rectum and for that reason a GI consultation will be requested. Patient's EKG was a normal sinus rhythm. On 05/25/2017 patient seen in follow-up on selective care unit, his up in the recliner, in no acute distress, he states his breathing is improving, he sounds was bronchospastic on today's exam, still has some diffuse wheezes. Currently on room air, with a pulse ox of 94%, slightly tachycardic with a heart rate up to 120 BPM, afebrile. Culture showed no growth. Patient is on a combination of the paramedics in the form of Zithromax, and Rocephin, nebulized bronchodilators, IV steroids, and starting to improve. On O2 25 2019 patient seen in follow-up on medical surgical floor. He continues to improve, he is ambulating in the room, in no acute distress, pulse ox is 95% on room air, afebrile, hemodynamically stable. Today's chest x-ray has been reviewed by Dr. Owusu, and shows no new suspicious focal infiltrate , persistent left greater than right basilar linear scarring or atelectasis. But the patient continues to improve, blood cultures show no growth, no new labs today, vital signs are stable, no acute events overnight, antibiotic coverage with Zithromax and Rocephin. Patient is clinically stable for discharge home today with outpatient follow-up. Objective - Vital Signs Vital signs: Vital Signs Temp 97.3 F L 05/28/18 11:32 Pulse 102 H 05/28/18 11:46 Resp 22 05/28/18 11:32 BP 154/85 05/28/18 11:32 Pulse Ox 95 05/28/18 11:32 Intake & Output 05/27/18 05/28/18 05/28/18 18:59 06:59 18:59 Intake Total 2650 1070 240 Balance 2650 1070 240 Weight 129 kg Intake: Oral 2650 1070 240 Other: Voiding Method Toilet Toilet # Voids 4 2 - Exam GENERAL EXAM: Alert, pleasant, 53-year-old obese white male, comfortable in no apparent distress. HEAD: Normocephalic/atraumatic. EYES: Normal reaction of pupils, equal size. Conjunctiva pink, sclera white. NOSE: Clear with pink turbinates. THROAT: No erythema or exudates. NECK: No masses, no JVD, no thyroid enlargement, no adenopathy. CHEST: No chest wall deformity. Symmetrical expansion. LUNGS: Equal air entry with some scattered rhonchi, no significant wheezing on today's exam CVS: Regular rate and rhythm, normal S1 and S2, no gallops, no murmurs, no rubs ABDOMEN: Soft, nontender. No hepatosplenomegaly, normal bowel sounds, no guarding or rigidity. EXTREMITIES: No clubbing, no edema, no cyanosis, 2+ pulses and upper and lower extremities. MUSCULOSKELETAL: Muscle strength and tone normal. SPINE: No scoliosis or deformity SKIN: No rashes CENTRAL NERVOUS SYSTEM: Alert and oriented -3. No focal deficits, tone is normal in all 4 extremities. PSYCHIATRIC: Alert and oriented -3. Appropriate affect. Intact judgment and insight. - Labs CBC & Chem 7: 05/27/18 06:50 05/27/18 06:50 Labs: Abnormal Lab Results - Last 24 Hours (Table) 05/27/18 05/27/18 05/28/18 Range/Units 16:52 20:35 07:04 POC Glucose (mg/dL) 153 H 165 H 118 H (75-99) mg/dL 05/28/18 Range/Units 11:04 POC Glucose (mg/dL) 100 H (75-99) mg/dL Microbiology - Last 24 Hours (Table) 05/23/18 18:30 Blood Culture - Preliminary Blood No Growth after 96 hours Assessment and Plan Plan: 1 acute tracheal bronchitis with reactive bronchospasm wheezing. Underlying COPD/asthma cannot be completely excluded. CAT scan of the chest shows no acute abnormalities other than some limited infiltration of the lung bases which could be early pneumonia versus atelectasis. No evidence of any COPD. No structural changes in the lungs 2 shortness of breath secondary to above 3 history of smoking 4 obesity with a BMI of 38 5 typical features of obstructive sleep apnea with loud snoring sleep fragmentation and witnessed apneas and this history worked up further on outpatient basis 6 osteoarthritis Plan: Patient is improving, today's chest x-ray has been reviewed, no new infiltrates , is on room air, vital signs are stable, no fever or chills, from pulmonary perspective patient is stable for discharge home today on the outpatient course of oral antibiotics in the form of Zithromax and Ceftin. And prednisone taper 40 mg for 5 days, 30 mg for 5 days, 20 mg for 5 days, 10 mg for 5 days. Will need outpatient follow-up with Dr. Owusu in the office in one week. I performed a history & physical examination of the patient and discussed their management with my nurse practitioner, Terese Galarza. I reviewed the nurse practitioner's note and agree with the documented findings and plan of care. Lung sounds are positive for diffuse wheezes throughout the lung bartlett. The findings and the impression was discussed with the patient. I attest to the documentation by the nurse practitioner. Time with Patient: Less than 30
--- NOTE | 2018-05-29 08:54 | DS ---
DISCHARGE SUMMARY DATE OF SERVICE: 05/28/2018 FINAL DIAGNOSES: 1. Acute bronchial asthma, acute exacerbation, acute purulent tracheobronchitis with acute hypoxic respiratory failure status post BiPAP. 2. History of bronchial asthma, chronic, intermittent. 3. Hyperkalemia. 4. Abdominal distention. 5. Rectal bleeding, conservative line of management. 6. History of degenerative joint disease. 7. Bibasilar atelectasis. 8. Obesity with body mass index 8. DISCHARGE DISPOSITION: The patient will be discharged in stable condition with guarded prognosis. HISTORY OF PRESENT ILLNESS: This is a 53-year-old gentleman with the past medical history of multiple medical problems including bronchial asthma acute exacerbation, tracheobronchitis treated with bronchodilators, steroids, antibiotics. Dr. Owusu saw the patient. Patient improved significantly. On exam, vitals are stable. CARDIOVASCULAR: S1, S2. ABDOMEN: Soft. NERVOUS SYSTEM: No focal deficit. RESPIRATORY: A few rhonchi. Discharge diet is cardiac. Activity limited until followup. Follow up with the Dr. Wyatt in 2-3 days. Follow up with Dr. Owusu as recommended. MEDICATIONS ARE: 1. Albuterol p.r.n. 2. Albuterol Ventolin q.4h p.r.n. 3. Ecotrin 81 mg. 4. Celebrex 200 mg q.h.s. 5. Vitamin D 2000 mg b.i.d. 6. [place] 10 mg t.i.d. p.r.n. 7. Probiotic 1 p.o. daily. 8. Multivitamin 1 p.o. daily. 9. Fish oil 1 p.o. daily. 10.Coenzyme Q 100 mg p.o. daily. 11.Tylenol 500 mg q.6 p.r.n. 12.Xanax 0.5 b.i.d. p.r.n. 13.Norvasc 5 mg p.o. daily.. 14.Zithromax 500 mg daily for 5 days. 15.Symbicort 1 puff b.i.d. 16.Ceftin 500 mg daily for 3 days. This man is all for local application and . 17.DuoNeb q.i.d. and p.r.n. 18.Singular 10 mg q.h.s. 19.Protonix 40 mg daily. 20.Prednisone 40 mg daily for 3 days 30 for 3 days, 20 for 3 days, 10 for days. 21.Promethazine cough syrup p.r.n. Once again, patient will be discharged in stable condition with guarded prognosis. MMODL / IJN: [id number] / MTDD
== END 2018-05-28 14:00 | disposition home or self-care (01) | DRG 202 ==
LOC: EC 15:20 → 3SCARD 17:29 → 3NMEDONC 05-26 15:09
PROVIDERS: ADMIT Hospitalist; ATTEND Hospitalist
PROC: 5A09357 Assistance with Respiratory Ventilation, Less than 24 Consecutive Hours, Continuous Positive Airway Pressure (ICD-10-PCS; principal; 2018-05-23)
DX: J45.901 Unspecified asthma with (acute) exacerbation (principal); J96.01 Acute respiratory failure with hypoxia; M19.90 Unspecified osteoarthritis, unspecified site; E66.01 Morbid (severe) obesity due to excess calories; J20.9 Acute bronchitis, unspecified; E87.5 Hyperkalemia; Z82.49 Family history of ischemic heart disease and other diseases of the circulatory system; Z68.38 Body mass index [BMI] 38.0-38.9, adult; Z79.899 Other long term (current) drug therapy
CPT/HCPCS: 36415; 71045; 71046; 71260; 74176; 80048; 80051; 82803; 83036; 83735; 83880; 85025; 87040; 87502; 93005; 94640; 94644; 94660; 94760; 96365; 96366; 96375; 99285

== ENCOUNTER → 2018-05-31 | Outpatient (CLI) | payer OTHER ==
[2018-05-31 17:29] LABS: Basophils # (A) 0.1 k/uL (0-0.2); Basophils % (A) 1 %; Eosinophils # (A) 0.1 k/uL (0-0.7); Eosinophils % (A) 1 %; HCT 46.1 % (39.0-53.0); HGB 14.6 gm/dL (13.0-17.5); Lymphocytes # (A) 1.1 k/uL (1.0-4.8); Lymphocytes % (A) 7 %; MCH 29.7 pg (25.0-35.0); MCHC 31.8 g/dL (31.0-37.0); MCV 93.5 fL (80.0-100.0); Mean Platelet Volume 6.4; Monocytes # (A) 0.7 k/uL (0-1.0); Monocytes % (A) 5 %; Neutrophils # (A) 13.2 k/uL (1.3-7.7); Neutrophils % (A) 86 %; Platelet Count 336 k/uL (150-450); RBC 4.93 m/uL (4.30-5.90); RDW 14.5 % (11.5-15.5); WBC 15.3 k/uL (3.8-10.6)
[2018-05-31 23:30] LABS: Calcium 9.5 mg/dL (8.7-10.3); Potassium 4.7 mmol/L (3.5-5.5)
== END ==
LOC: LABWHC1 16:53
PROVIDERS: ATTEND Hospitalist
DX: J44.9 Chronic obstructive pulmonary disease, unspecified (principal)
CPT/HCPCS: 36415; 80048; 85025

== ENCOUNTER 2018-08-29 14:01 | Observation (INO) | payer OTHER ==
[2018-08-29 15:42] LABS: Basophils % (A) 1 %; Eosinophils # (A) 0.3 k/uL (0-0.7); Eosinophils % (A) 4 %; HGB 12.9 gm/dL (13.0-17.5); Lymphocytes # (A) 1.7 k/uL (1.0-4.8); Lymphocytes % (A) 25 %; MCH 27.8 pg (25.0-35.0); MCV 84.2 fL (80.0-100.0); Mean Platelet Volume 7.3; Monocytes # (A) 0.6 k/uL (0-1.0); Monocytes % (A) 9 %; Neutrophils % (A) 59 %; Platelet Count 267 k/uL (150-450); Poikilocytosis Slight; RBC 4.64 m/uL (4.30-5.90); RDW 14.8 % (11.5-15.5); WBC 6.8 k/uL (3.8-10.6)
[2018-08-29 15:43] LABS: ALT 33 U/L (21-72); AST 26 U/L (17-59); African American GFR (CKD) >90 (>60 ml/min/1.73 sqM); Albumin 3.9 g/dL (3.5-5.0); Alkaline Phosphatase 59 U/L (38-126); Anion Gap 7 mmol/L; Blood Urea Nitrogen 16 mg/dL (9-20); Calcium 9.1 mg/dL (8.4-10.2); Carbon Dioxide 28 mmol/L (22-30); Chloride 104 mmol/L (98-107); Glucose 123 mg/dL (74-99); Potassium 3.9 mmol/L (3.5-5.1); Sodium 139 mmol/L (137-145); Total Bilirubin 0.3 mg/dL (0.2-1.3); Total Protein 6.2 g/dL (6.3-8.2)
[2018-08-29 15:51] LABS: INR 0.9 (<1.2); Prothrombin Time 10.1 sec (9.0-12.0)
[2018-08-29] MEDS ORDERED: FUROSEMIDE 10 MG/ML 4 ML VIAL IV STA (16:05)
--- NOTE | 2018-08-29 16:13 | ED ---
General Adult HPI - General Chief complaint: Shortness of Breath Stated complaint: NBA Time Seen by Provider: 08/29/18 15:30 Source: patient, RN notes reviewed Mode of arrival: ambulatory Limitations: no limitations - History of Present Illness Initial comments: This is a 53-year-old male with a past medical history significant for asthma exacerbation versus COPD. Patient states he comes in today because having a harder time breathing and he feels like his whole body is swollen. Patient states his legs are more edematous and his hands are more swollen now and now he feels as though his upper chest and neck are becoming more swollen. Patient den ies any chest pain or pressure. Patient denies any palpitations per patient denies any recent fever chills or cough. Patient denies lightheadedness or dizziness. Patient denies any abdominal pain patient denies nausea vomiting diarrhea. Patient denies any calf tenderness. - Related Data Home Medications Medication Instructions Recorded Confirmed Celecoxib [CeleBREX] 200 mg PO DAILY 03/31/18 08/29/18 HYDROcodone/APAP 10-325MG [[place] 1 tab PO TID PRN 03/31/18 08/29/18 10-325] Aspirin [Adult Low Dose Aspirin EC] 81 mg PO DAILY 04/02/18 08/29/18 Albuterol Inhaler [Ventolin Hfa 2 puff INHALATION RT-Q4H PRN 05/23/18 08/29/18 Inhaler] Cyanocobalamin (Vitamin B-12) 1,000 mcg PO DAILY 05/23/18 08/29/18 [Vitamin B-12] Multivitamins, Thera [Multivitamin 1 tab PO DAILY 05/23/18 08/29/18 (formulary)] [place]-3 Fatty Acids/Fish Oil [Fish 1 cap PO DAILY 05/23/18 08/29/18 Oil 1,000 mg Softgel] Ubidecarenone [Co Q-10] 100 mg PO DAILY 05/23/18 08/29/18 Cetirizine HCl [Zyrtec] 10 mg PO DAILY 08/29/18 08/29/18 Fluticasone/Salmeterol [Airduo 1 puff INHALATION RT-BID 08/29/18 08/29/18 Respiclick 232-14 Mcg] Furosemide [Lasix] 40 mg PO DAILY 08/29/18 08/29/18 Milk Thistle 150 mg PO DAILY 08/29/18 08/29/18 Previous Rx's Medication Instructions Recorded Montelukast [Singulair] 10 mg PO HS #30 tab 04/02/18 Pantoprazole [Protonix] 40 mg PO AC-BRKFST #30 tablet. 04/02/18 Acetaminophen Tab [Tylenol] 500 mg PO Q6HR PRN tab 05/28/18 Ipratropium-Albuterol Nebulize 3 ml INHALATION RT-QID #120 05/28/18 [Duoneb 0.5 mg-3 mg/3 ml Soln] ampul.neb Allergies Allergy/AdvReac Type Severity Reaction Status Date / Time No Known Allergies Allergy Verified 08/29/18 14:05 Review of Systems ROS Statement: Those systems with pertinent positive or pertinent negative responses have been documented in the HPI. ROS Other: All systems not noted in ROS Statement are negative. Past Medical History Past Medical History: Asthma, COPD, Osteoarthritis (OA) Additional Past Medical History / Comment(s): Obesity with a BMI of 38, osteoarthritis, COPD/asthma and the patient has worked in construction and he has a [id number] smoking history at least. History of Any Multi-Drug Resistant Organisms: None Reported Past Surgical History: Joint Replacement Additional Past Surgical History / Comment(s): left knee, R hip Past Anesthesia/Blood Transfusion Reactions: No Reported Reaction Past Psychological History: No Psychological Hx Reported Smoking Status: Never smoker Past Alcohol Use History: None Reported Past Drug Use History: None Reported - Past Family History Father Additional Family Medical History / Comment(s): Parkinsons disease Mother Family Medical History: Hypertension General Exam - General Exam Comments Initial Comments: GENERAL: Patient is well-developed and well-nourished. Patient is nontoxic and well- hydrated and is in mild distress. ENT: Neck is soft and supple. No significant lymphadenopathy is noted. Oropharynx is clear. Moist mucous membranes. Neck has full range of motion without eliciting any pain. EYES: The sclera were anicteric and conjunctiva were pink and moist. Extraocular movements were intact and pupils were equal round and reactive to light. Eyelids were unremarkable. PULMONARY: Patient has diminished breath sounds. No crackles or rhonchi are heard CARDIOVASCULAR: There is a regular rate and rhythm without any murmurs gallops or rubs. ABDOMEN: Soft and nontender with normal bowel sounds. Patient is morbidly obese SKIN: Skin is clear with no lesions or rashes and otherwise unremarkable. NEUROLOGIC: Patient is alert and oriented x3. Cranial nerves II through XII are grossly intact. Motor and sensory are also intact. Normal speech, volume and content. Symmetrical smile. MUSCULOSKELETAL: Normal extremities with adequate strength and full range of motion. Bilateral edema of the patient's legs patient also has edema of both hands bilaterally. LYMPHATICS: No significant lymphadenopathy is noted PSYCHIATRIC: Normal psychiatric evaluation. Limitations: no limitations Course Vital Signs 08/29/18 08/29/18 08/29/18 14:02 14:05 19:26 Temperature 97.0 F L Pulse Rate 70 80 Respiratory 24 20 18 Rate Blood Pressure 164/84 179/96 O2 Sat by Pulse 98 98 Oximetry Medical Decision Making - Medical Decision Making EKG shows a normal sinus rhythm at 74 bpm [place] interval is 170 QRS is 86 QT interval 394 QTC is 437. Patient's EKG shows no ST segment elevation or depression or T wave abnormalities are noted. Patient requested being admitted to Dr. Itz fontenot like he has in the past. Chest x-ray shows no acute abnormality. Patient states the Lasix didn't seem to help with some of his shortness of breath. I spoke with [facility] hospitalist and they agreed to admit the patient admitted and I wrote admitting orders - Lab Data Result diagrams: 08/29/18 Unknown 08/29/18 Unknown Lab Results 08/29/18 08/29/18 08/29/18 Range/Units Unknown Unknown Unknown WBC 6.8 (3.8-10.6) k/uL RBC 4.64 (4.30-5.90) m/uL Hgb 12.9 L (13.0-17.5) gm/dL Hct 39.0 (39.0-53.0) % MCV 84.2 (80.0-100.0) fL MCH 27.8 (25.0-35.0) pg MCHC 33.0 (31.0-37.0) g/dL RDW 14.8 (11.5-15.5) % Plt Count 267 (150-450) k/uL Neutrophils % 59 % Lymphocytes % 25 % Monocytes % 9 % Eosinophils % 4 % Basophils % 1 % Neutrophils # 4.0 (1.3-7.7) k/uL Lymphocytes # 1.7 (1.0-4.8) k/uL Monocytes # 0.6 (0-1.0) k/uL Eosinophils # 0.3 (0-0.7) k/uL Basophils # 0.0 (0-0.2) k/uL Poikilocytosis Slight PT 10.1 (9.0-12.0) sec INR 0.9 (<1.2) APTT 23.0 (22.0-30.0) sec D-Dimer (<0.60) mg/L FEU Sodium 139 (137-145) mmol/L Potassium 3.9 (3.5-5.1) mmol/L Chloride 104 (98-107) mmol/L Carbon Dioxide 28 (22-30) mmol/L Anion Gap 7 mmol/L BUN 16 (9-20) mg/dL Creatinine 0.90 (0.66-1.25) mg/dL Est GFR (CKD-EPI)AfAm >90 (>60 ml/min/1.73 sqM) Est GFR (CKD-EPI)NonAf >90 (>60 ml/min/1.73 sqM) Glucose 123 H (74-99) mg/dL Calcium 9.1 (8.4-10.2) mg/dL Total Bilirubin 0.3 (0.2-1.3) mg/dL AST 26 (17-59) U/L ALT 33 (21-72) U/L Alkaline Phosphatase 59 (38-126) U/L Troponin I (0.000-0.034) ng/mL NT-Pro-B Natriuret Pep pg/mL Total Protein 6.2 L (6.3-8.2) g/dL Albumin 3.9 (3.5-5.0) g/dL 08/29/18 08/29/18 08/29/18 Range/Units Unknown Unknown Unknown WBC (3.8-10.6) k/uL RBC (4.30-5.90) m/uL Hgb (13.0-17.5) gm/dL Hct (39.0-53.0) % MCV (80.0-100.0) fL MCH (25.0-35.0) pg MCHC (31.0-37.0) g/dL RDW (11.5-15.5) % Plt Count (150-450) k/uL Neutrophils % % Lymphocytes % % Monocytes % % Eosinophils % % Basophils % % Neutrophils # (1.3-7.7) k/uL Lymphocytes # (1.0-4.8) k/uL Monocytes # (0-1.0) k/uL Eosinophils # (0-0.7) k/uL Basophils # (0-0.2) k/uL Poikilocytosis PT (9.0-12.0) sec INR (<1.2) APTT (22.0-30.0) sec D-Dimer 0.54 (<0.60) mg/L FEU Sodium (137-145) mmol/L Potassium (3.5-5.1) mmol/L Chloride (98-107) mmol/L Carbon Dioxide (22-30) mmol/L Anion Gap mmol/L BUN (9-20) mg/dL Creatinine (0.66-1.25) mg/dL Est GFR (CKD-EPI)AfAm (>60 ml/min/1.73 sqM) Est GFR (CKD-EPI)NonAf (>60 ml/min/1.73 sqM) Glucose (74-99) mg/dL Calcium (8.4-10.2) mg/dL Total Bilirubin (0.2-1.3) mg/dL AST (17-59) U/L ALT (21-72) U/L Alkaline Phosphatase (38-126) U/L Troponin I <0.012 (0.000-0.034) ng/mL NT-Pro-B Natriuret Pep 18 pg/mL Total Protein (6.3-8.2) g/dL Albumin (3.5-5.0) g/dL Disposition Clinical Impression: Anasarca, Dyspnea Disposition: ADMITTED IP TO THIS HOSP Referrals: Rufino Wyatt MD [Primary Care Provider] - 1-2 days Time of Disposition: 20:28
--- NOTE | 2018-08-29 18:02 | XR ---
EXAMINATION: XR chest 2V DATE AND TIME: 08/29/2018 5:19 PM CLINICAL INDICATION: PHH; difficulty breathing TECHNIQUE: Departmental protocol COMPARISON: 05/28/2018 FINDINGS: The lungs are clear and well-expanded. Linear shadow at the left base redemonstrated, consistent with small parenchymal scar. The pleural spaces are negative. The cardiac silhouette is mildly enlarged. The remainder of the mediastinal silhouette is unremarkabl e. The skeletal structures and soft tissues are negative for acute findings. IMPRESSION: NO ACUTE PROCESS.
[2018-08-29 19:27] VITALS: RESP 18
[2018-08-30] MEDS: FUROSEMIDE 10 MG/ML 4 ML VIAL IV SCH ×4 (01:21→22:48)
--- NOTE | 2018-08-30 08:02 | P.HPIM ---
History of Present Illness This is a pleasant 63 years old male with past medical history of asthma/COPD, obstructive sleep apnea, obesity, ex-smoker, osteoarthritis. Comes complaining of generalized swelling in her whole body including the upper and lower extremities, and abdominal distention. Associated with joint pains including lower extremities ankle knees and hips, upper extremities hands elbow and shoulder with no joint swelling or tenderness. His symptoms started since August 01 and he went to his PCP Dr. Wyatt will give him 1 pill of Lasix daily, patient says that did not help him much and so I decided to come to the hospital Patient also complained of from mild pain at the back of his neck, no headache or rigidity. He has some mild chest pain about 2-3 /10, of one-day duration, central, nonspecific, nonradiating, increase by deep breathing and coughing. Patient also has some sore throat and dry cough. He denies abdominal pain, no shortness of breath, no diarrhea or nausea or vomiting. No urinary symptoms. No fever He denies use of new medication however through July of this year he was using diet pills which says it did not help him much. On admission her vitals are stable, she is saturating 98% on room air. CBC and BMP were unremarkable. Creatinine 0.9. Magnesium 1.9, troponin is negative, liver enzymes not elevated. EKG showing normal sinus rhythm at [address]-T changes. Chest x-ray showing no acute process. Radiologist. Review of Systems CONSTITUTIONAL: No fever, no malaise, no fatigue. HEENT: No recent visual problems or hearing problems. Denied any sore throat. CARDIOVASCULAR: No orthopnea, PND, no palpitations, no syncope. PULMONARY: No shortness of breath, no cough, no hemoptysis. GASTROINTESTINAL: No diarrhea, no nausea, no vomiting, no abdominal pain. Normoactive bowel sounds. NEUROLOGICAL: No headaches, no weakness, no numbness. HEMATOLOGICAL: Denies any bleeding or petechiae. GENITOURINARY: Denies any burning micturition, frequency, or urgency. MUSCULOSKELETAL/RHEUMATOLOGICAL: Denies any joint pain, swelling, or any muscle pain. ENDOCRINE: Denies any polyuria or polydipsia. Past Medical History Past Medical History: Asthma, COPD, Osteoarthritis (OA) Additional Past Medical History / Comment(s): Obesity with a BMI of 38, osteoarthritis, COPD/asthma and the patient has worked in construction and he has a [id number] smoking history at least. History of Any Multi-Drug Resistant Organisms: None Reported Past Surgical History: Joint Replacement Additional Past Surgical History / Comment(s): left knee, R hip Past Anesthesia/Blood Transfusion Reactions: No Reported Reaction Past Psychological History: No Psychological Hx Reported Smoking Status: Never smoker Past Alcohol Use History: None Reported Past Drug Use History: None Reported - Past Family History Father Additional Family Medical History / Comment(s): Parkinsons disease Mother Family Medical History: Hypertension Medications and Allergies Home Medications Medication Instructions Recorded Confirmed Type Celecoxib [CeleBREX] 200 mg PO DAILY 03/31/18 08/29/18 History HYDROcodone/APAP 10-325MG [[place] 1 tab PO TID PRN 03/31/18 08/29/18 History 10-325] Aspirin [Adult Low Dose Aspirin EC] 81 mg PO DAILY 04/02/18 08/29/18 History Montelukast [Singulair] 10 mg PO HS #30 tab 04/02/18 08/29/18 Rx Pantoprazole [Protonix] 40 mg PO AC-BRKFST #30 tablet.dr 04/02/18 08/29/18 Rx Albuterol Inhaler [Ventolin Hfa 2 puff INHALATION RT-Q4H PRN 05/23/18 08/29/18 History Inhaler] Cyanocobalamin (Vitamin B-12) 1,000 mcg PO DAILY 05/23/18 08/29/18 History [Vitamin B-12] Multivitamins, Thera [Multivitamin 1 tab PO DAILY 05/23/18 08/29/18 History (formulary)] [place]-3 Fatty Acids/Fish Oil [Fish 1 cap PO DAILY 05/23/18 08/29/18 History Oil 1,000 mg Softgel] Ubidecarenone [Co Q-10] 100 mg PO DAILY 05/23/18 08/29/18 History Acetaminophen Tab [Tylenol] 500 mg PO Q6HR PRN tab 05/28/18 08/29/18 Rx Ipratropium-Albuterol Nebulize 3 ml INHALATION RT-QID #120 05/28/18 08/29/18 Rx [Duoneb 0.5 mg-3 mg/3 ml Soln] ampul.neb Cetirizine HCl [Zyrtec] 10 mg PO DAILY 08/29/18 08/29/18 History Fluticasone/Salmeterol [Airduo 1 puff INHALATION RT-BID 08/29/18 08/29/18 History Respiclick 232-14 Mcg] Furosemide [Lasix] 40 mg PO DAILY 08/29/18 08/29/18 History Milk Thistle 150 mg PO DAILY 08/29/18 08/29/18 History Allergies Allergy/AdvReac Type Severity Reaction Status Date / Time No Known Allergies Allergy Verified 08/29/18 14:05 Physical Exam Vitals: Vital Signs Temp Pulse Resp BP Pulse Ox 08/30/18 06:11 69 18 153/93 98 08/29/18 21:15 77 18 169/88 98 08/29/18 19:26 80 18 179/96 98 08/29/18 14:05 20 08/29/18 14:02 97.0 F L 70 24 164/84 98 Intake and Output 08/29/18 08/30/18 08/30/18 22:59 06:59 14:59 Output Total 600 Balance -600 Output: Urine 600 -GENERAL: The patient is alert and oriented x3, not in any acute distress. Obese. Patient has generalized swelling in the arms and legs. HEENT: Pupils are round and equally reacting to light. EOMI. No scleral icterus. No conjunctival pallor. Normocephalic, atraumatic. No pharyngeal erythema. No thyromegaly. CARDIOVASCULAR: S1 and S2 present. No murmurs, rubs, or gallops. PULMONARY: Chest is clear to auscultation, no wheezing or crackles. -ABDOMEN: Soft, nontender, abdomen is distended, normoactive bowel sounds. No palpable organomegaly. MUSCULOSKELETAL: No joint swelling or deformity. -EXTREMITIES: No cyanosis, clubbing,. Patient has +1-2 pedal edema. NEUROLOGICAL: Gross neurological examination did not reveal any focal deficits. SKIN: No rashes. Results CBC & Chem 7: 08/29/18 Unknown 08/29/18 Unknown Labs: Abnormal Lab Results - Last 24 Hours (Table) 08/29/18 08/29/18 Range/Units Unknown Unknown Hgb 12.9 L (13.0-17.5) gm/dL Glucose 123 H (74-99) mg/dL Total Protein 6.2 L (6.3-8.2) g/dL Assessment and Plan Assessment: Possible Anasarca Generalized polyarthralgia Sore throats Chest pain with dry cough. History of asthma/COPD, not in acute exacerbation History of severe obstructive sleep apnea Obesity Ex smoker History of estrogen arthritis with joint replacement Plan: This is a pleasant 53 years old male who presents with generalized swelling. We'll do echocardiogram. We'll order abdominal ultrasound. We'll check for influenza throat swab. We'll ask for cardiology evaluation Labs and medication were reviewed.. Continue same treatment. Continue with symptomatic treatment. Resume home medication. Monitor lytes and vitals. DVT and GI prophylaxis. Further recommendations of the clinical course of the patient DVT prophylaxis: Subcutaneous heparin GI Prophylaxis: Pepcid Prognosis is guarded
[2018-08-30] MEDS: FAMOTIDINE 20 MG/2 ML VIAL IV SCH ×2 (08:26→08:27)
[2018-08-30] MEDS: HEPARIN SODIUM,PORCINE 5,000 UNIT/ML 1 ML VIAL SQ SCH ×2 (08:27→20:54)
--- NOTE | 2018-08-30 10:28 | US ---
EXAMINATION TYPE: US abdomen limited DATE OF EXAM: 08/30/2018 CLINICAL HISTORY: Ascites. Increased fluid retention with distended abdomen per patient. No ascites is seen by US in any abdominal quadrant. IMPRESSION: 1. No sizable fluid collection to suggest ascites.
[2018-08-30 15:32] VITALS: BMI 42.0
--- NOTE | 2018-08-30 17:57 | P.CNPUL ---
History of Present Illness Consult date: 08/30/18 Requesting physician: Johnie E Sheet Chief complaint: Fluid Retention, shortness of breathf History of present illness: This is a 53-year-old white male patient of Dr. Wyatt, with past medical history of asthma/COPD, moderately severe with baseline FEV1 of 61% of predicted, former smoker, does carry [id number] smoking history, quit in 1994, history of obstructive sleep apnea on CPAP therapy, who presented to the [facility] on 08/29/2018 for evaluation of worsening shortness of breath, and fluid retention, patient felt like his whole body was swollen, his legs and arms were edematous, and the sensation of fluid retention in his upper body, and abdomen. Patient denied any chest pain or pressure, denied any fever or chills, no cough or congestion, denies any lightheadedness, dizziness or palpitations. Denied an y nausea vomiting or diarrhea. Denied any calf tenderness. EKG showed no ST segment elevation or depression, or T-wave abnormalities. Patient has been taken Lasix on an outpatient basis, however does like he is retaining fluid. Chest x-ray showed no acute process. Lab work showed white blood cell count is 6.8, hemoglobin of 12.9, d-dimer was within normal limits at 0.54, INR 0.9, electrolytes and renal profile were normal, troponin was negative at 0.012, proBNP was 18, influenza screen was negative. Patient has been started on IV Lasix at 40 mg every 8 hours. Echocardiogram has been ordered and is pending at this time. Review of Systems All systems: negative Constitutional: Denies chills, Denies fever Eyes: denies blurred vision, denies pain Ears, nose, mouth and throat: Denies headache, Denies sore throat Cardiovascular: Reports edema, Denies chest pain, Denies shortness of breath Respiratory: Reports dyspnea, Denies cough Gastrointestinal: Denies abdominal pain, Denies diarrhea, Denies nausea, Denies vomiting Musculoskeletal: Denies myalgias Musculoskeletal: bilateral: ankle swelling, hand swelling Integumentary: Denies pruritus, Denies rash Neurological: Denies numbness, Denies weakness Psychiatric: Denies anxiety, Denies depression Endocrine: Denies fatigue, Denies weight change Past Medical History Past Medical History: Asthma, COPD, Osteoarthritis (OA) Additional Past Medical History / Comment(s): Obesity with a BMI of 38, osteoarthritis, COPD/asthma and 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 History of Any Multi-Drug Resistant Organisms: None Reported Past Surgical History: Joint Replacement Additional Past Surgical History / Comment(s): left knee, R hip Past Anesthesia/Blood Transfusion Reactions: No Reported Reaction Past Psychological History: No Psychological Hx Reported Smoking Status: Never smoker Past Alcohol Use History: None Reported Past Drug Use History: None Reported - Past Family History Father Additional Family Medical History / Comment(s): Parkinsons disease Mother Family Medical History: Hypertension Medications and Allergies Home Medications Medication Instructions Recorded Confirmed Type Celecoxib [CeleBREX] 200 mg PO DAILY 03/31/18 08/29/18 History HYDROcodone/APAP 10-325MG [[place] 1 tab PO TID PRN 03/31/18 08/29/18 History 10-325] Aspirin [Adult Low Dose Aspirin EC] 81 mg PO DAILY 04/02/18 08/29/18 History Montelukast [Singulair] 10 mg PO HS #30 tab 04/02/18 08/29/18 Rx Pantoprazole [Protonix] 40 mg PO AC-BRKFST #30 tablet.dr 04/02/18 08/29/18 Rx Albuterol Inhaler [Ventolin Hfa 2 puff INHALATION RT-Q4H PRN 05/23/18 08/29/18 History Inhaler] Cyanocobalamin (Vitamin B-12) 1,000 mcg PO DAILY 05/23/18 08/29/18 History [Vitamin B-12] Multivitamins, Thera [Multivitamin 1 tab PO DAILY 05/23/18 08/29/18 History (formulary)] [place]-3 Fatty Acids/Fish Oil [Fish 1 cap PO DAILY 05/23/18 08/29/18 History Oil 1,000 mg Softgel] Ubidecarenone [Co Q-10] 100 mg PO DAILY 05/23/18 08/29/18 History Acetaminophen Tab [Tylenol] 500 mg PO Q6HR PRN tab 05/28/18 08/29/18 Rx Ipratropium-Albuterol Nebulize 3 ml INHALATION RT-QID #120 05/28/18 08/29/18 Rx [Duoneb 0.5 mg-3 mg/3 ml Soln] ampul.neb Cetirizine HCl [Zyrtec] 10 mg PO DAILY 08/29/18 08/29/18 History Fluticasone/Salmeterol [Airduo 1 puff INHALATION RT-BID 08/29/18 08/29/18 History Respiclick 232-14 Mcg] Furosemide [Lasix] 40 mg PO DAILY 08/29/18 08/29/18 History Milk Thistle 150 mg PO DAILY 08/29/18 08/29/18 History Allergies Allergy/AdvReac Type Severity Reaction Status Date / Time bee venom protein (honey bee) Allergy Swelling Verified 08/30/18 15:40 Physical Exam Vitals: Vital Signs Pulse Pulse Resp BP BP Pulse Ox 08/30/18 14:02 74 18 150/92 97 08/30/18 11:00 84 18 142/91 98 08/30/18 08:20 77 18 142/91 97 08/30/18 06:11 69 18 153/93 98 08/29/18 21:15 77 94 18 169/88 165/84 96 08/29/18 19:26 80 18 179/96 98 Intake and Output 08/30/18 08/30/18 08/30/18 06:59 14:59 22:59 Output Total 600 Balance -600 Output: Urine 600 Other: # Voids 1 GENERAL EXAM: Alert, pleasant, 53-year-old white male, obese, on room air, in no acute distress comfortable in no apparent distress. HEAD: Normocephalic/atraumatic. EYES: Normal reaction of pupils, equal size. Conjunctiva pink, sclera white. NOSE: Clear with pink turbinates. THROAT: No erythema or exudates. NECK: No masses, no JVD, no thyroid enlargement, no adenopathy. CHEST: No chest wall deformity. Symmetrical expansion. LUNGS: Equal air entry with no crackles, wheeze, rhonchi or dullness. CVS: Regular rate and rhythm, normal S1 and S2, no gallops, no murmurs, no rubs ABDOMEN: Soft, nontender. No hepatosplenomegaly, normal bowel sounds, no guarding or rigidity. EXTREMITIES: No clubbing, nonpitting generalized edema involving lower extremities, upper extremities, hands, and abdomen no cyanosis, 2+ pulses and upper and lower extremities. MUSCULOSKELETAL: Muscle strength and tone normal. SPINE: No scoliosis or deformity SKIN: No rashes CENTRAL NERVOUS SYSTEM: Alert and oriented -3. No focal deficits, tone is normal in all 4 extremities. PSYCHIATRIC: Alert and oriented -3. Appropriate affect. Intact judgment and insight. Results - Laboratory Findings CBC and BMP: 08/29/18 Unknown 08/29/18 Unknown PT/INR, D-dimer PT 10.1 sec (9.0-12.0) 08/29/18 Unknown INR 0.9 (<1.2) 08/29/18 Unknown D-Dimer 0.54 mg/L FEU (<0.60) 08/29/18 Unknown Abnormal lab findings: Abnormal Labs 08/29/18 08/29/18 Unknown Unknown Hgb 12.9 L Glucose 123 H Total Protein 6.2 L - Diagnostic Findings Chest x-ray: report reviewed, image reviewed Additional studies: Abdominal ultrasound, EKG reviewed Assessment and Plan Plan: Assessment: #1. Increased fluid retention despite the oral diuretic therapy. BNP was within normal limits, chest x-ray did not show acute pulmonary process #2. History of moderately severe COPD/asthma, with baseline FEV1 of 61% of predicted not on home oxygen #3. Severe Obstructive sleep apnea on CPAP therapy, AHI score of 66 #4. Remote history of smoking, quit smoking in 1994, does carry [id number] smoking history #5. Osteoarthritis with history of joint replacement #6. Morbid obesity with BMI of 42 kg/m Plan: We will continue with IV diuretics, chest x-ray was negative for any acute pulmonary process, we'll reorder patient's home medications, COPD seems to be stable right now. He was advised to bring his CPAP unit from home, and wear tonight, obtain follow-up of BMP in the morning, daily weights. Anticipate improvement, and possible discharge home in the next 24 hours I performed a history & physical examination of the patient and discussed their management with my nurse practitioner, Terese Galarza. I reviewed the nurse viki borja's note and agree with the documented findings and plan of care. Lung sounds are positive for clear breath sounds. The findings and the impression was discussed with the patient. I attest to the documentation by the nurse practitioner. Time with Patient: Greater than 30
[2018-08-30] MEDS: FAMOTIDINE 20 MG TAB PO SCH (20:54)
[2018-08-30] MEDS ORDERED: MONTELUKAST 10 MG TAB PO SCH (21:00)
[2018-08-30] MEDS: IPRATROPIUM-ALBUTEROL 3 ML NEB INHALATION SCH (21:07)
[2018-08-30] MEDS: SYMBICORT 160-4.5 MCG INHALER INHALATION SCH (21:07)
[2018-08-31] MEDS: IPRATROPIUM-ALBUTEROL 3 ML NEB INHALATION SCH ×2 (07:23→11:05)
[2018-08-31] MEDS: SYMBICORT 160-4.5 MCG INHALER INHALATION SCH (07:24)
[2018-08-31] MEDS ORDERED: PANTOPRAZOLE 40 MG TABLET PO SCH (07:30)
[2018-08-31 07:37] LABS: African American GFR (CKD) >90 (>60 ml/min/1.73 sqM); Anion Gap 7 mmol/L; Blood Urea Nitrogen 26 mg/dL (9-20); Calcium 9.3 mg/dL (8.4-10.2); Carbon Dioxide 31 mmol/L (22-30); Chloride 100 mmol/L (98-107); Glucose 106 mg/dL (74-99); Potassium 4.3 mmol/L (3.5-5.1); Sodium 138 mmol/L (137-145)
[2018-08-31] MEDS: FAMOTIDINE 20 MG TAB PO SCH (08:31)
[2018-08-31] MEDS: FUROSEMIDE 10 MG/ML 4 ML VIAL IV SCH (08:32)
[2018-08-31] MEDS: HEPARIN SODIUM,PORCINE 5,000 UNIT/ML 1 ML VIAL SQ SCH (08:32)
[2018-08-31 08:40] VITALS: TEMP 97.8
[2018-08-31] MEDS ORDERED: ASPIRIN 81 MG PO SCH (09:00)
[2018-08-31] MEDS ORDERED: LORATADINE 10 MG TAB PO SCH (09:00)
[2018-08-31 11:46] VITALS: BP 139/75; PULSE 88
--- NOTE | 2018-08-31 12:15 | P.PN ---
Subjective Progress Note Date: 08/31/18 Principal diagnosis: Increased fluid retention This is a 53-year-old white male patient of Dr. Wyatt, with past medical history of asthma/COPD, moderately severe with baseline FEV1 of 61% of predicted, former smoker, does carry [id number] smoking history, quit in 1994, history of obstructive sleep apnea on CPAP therapy, who presented to the hospital on 08/29/2018 for evaluation of worsening shortness of breath, and fluid retention, patient felt like his whole body was swollen, his legs and arms were edematous, and the sensation of fluid retention in his upper body, and abdomen. Patient denied any chest pain or pressure, denied any fever or chills, no cough or congestion, denies any lightheadedness, dizziness or palpitations. Denied any nausea vomiting or diarrhea. Denied any calf tenderness. EKG showed no ST segment elevation or depression, or T-wave abnormalities. Patient has been taken Lasix on an outpatient basis, however does like he is retaining fluid. Chest x-ray showed no acute process. Lab work showed white blood cell count is 6.8, hemoglobin of 12.9, d-dimer was within normal limits at 0.54, INR 0.9, electrolytes and renal profile were normal, troponin was negative at 0.012, proBNP was 18, influenza screen was negative. Patient has been started on IV Lasix at 40 mg every 8 hours. Echocardiogram has been ordered and is pending at this time. On 08/31/2018 patient seen in follow-up on selective care unit. He is awake and alert, in no acute distress, his weight is down 9.3 kg in the last 48-72 hours. Remains on IV diuretics of 40 mg every 8 hours, is in negative fluid balance. He states he feels improvement in generalized swelling, arms, neck area, chest area and legs. No difficulty breathing, no complaints of chest pain. Today's labs have been reviewed, and showed a serum sodium of 138, potassium is 4.3, chloride is 100, CO2 is 31, BUN is 26 and creatinine is 0.97. vital signs have been stable, no fever or chills. Patient's was unable to bring his CPAP from home last night, patient states he has been quite compliant with his CPAP therapy, which is set at a C-Flex of 3, to rule out target pressure of 18 centimeters of water. Echocardiogram has been taken, and is pending at this time, abdominal ultrasound did not reveal sizable fluid collection to suggest ascites. Objective - Vital Signs Vital signs: Vital Signs Temp 97.8 F 08/31/18 08:15 Pulse 88 08/31/18 11:40 Resp 18 08/31/18 11:40 BP 139/75 08/31/18 11:40 Pulse Ox 94 L 08/31/18 11:40 Intake & Output 08/30/18 08/31/18 08/31/18 18:59 06:59 18:59 Intake Total 360 360 Output Total 2400 Balance 360 -2400 360 Weight 131.3 kg Intake: Oral 360 360 Output: Urine 2400 Other: Voiding Method Urinal Urinal # Voids 1 - Exam GENERAL EXAM: Alert, pleasant, 53-year-old white male, obese, on room air, in no acute distress comfortable in no apparent distress. HEAD: Normocephalic/atraumatic. EYES: Normal reaction of pupils, equal size. Conjunctiva pink, sclera white. NOSE: Clear with pink turbinates. THROAT: No erythema or exudates. NECK: No masses, no JVD, no thyroid enlargement, no adenopathy. CHEST: No chest wall deformity. Symmetrical expansion. LUNGS: Equal air entry with no crackles, wheeze, rhonchi or dullness. CVS: Regular rate and rhythm, normal S1 and S2, no gallops, no murmurs, no rubs ABDOMEN: Soft, nontender. No hepatosplenomegaly, normal bowel sounds, no guarding or rigidity. EXTREMITIES: No clubbing, nonpitting generalized edema involving lower extremi ties, upper extremities, hands, and abdomen no cyanosis, 2+ pulses and upper and lower extremities. MUSCULOSKELETAL: Muscle strength and tone normal. SPINE: No scoliosis or deformity SKIN: No rashes CENTRAL NERVOUS SYSTEM: Alert and oriented -3. No focal deficits, tone is normal in all 4 extremities. PSYCHIATRIC: Alert and oriented -3. Appropriate affect. Intact judgment and insight. - Labs CBC & Chem 7: 08/29/18 Unknown 08/31/18 06:51 Labs: Abnormal Lab Results - Last 24 Hours (Table) 08/31/18 Range/Units 06:51 Carbon Dioxide 31 H (22-30) mmol/L BUN 26 H (9-20) mg/dL Glucose 106 H (74-99) mg/dL Microbiology - Last 24 Hours (Table) 08/29/18 16:36 Blood Culture - Preliminary Blood No Growth after 24 hours Assessment and Plan Plan: Assessment: #1. Increased fluid retention despite the oral diuretic therapy. BNP was within normal limits, chest x-ray did not show acute pulmonary process #2. History of moderately severe COPD/asthma, with baseline FEV1 of 61% of predicted not on home oxygen #3. Severe Obstructive sleep apnea on CPAP therapy, AHI score of 66 #4. Remote history of smoking, quit smoking in 1994, does carry [id number] smoking history #5. Osteoarthritis with history of joint replacement #6. Morbid obesity with BMI of 42 kg/m Plan: Will await the results of the echocardiogram, clinically patient is doing well, he feels improvement with diuresis, and his weight is down 9.3 kg in the last 48-72 hours. He has upcoming CPAP titration with Dr. Owusu in the office, from pulmonary perspective patient is stable, and could be discharged home today on oral diuretics I performed a history & physical examination of the patient and discussed their management with my nurse practitioner, Terese Galarza. I reviewed the nurse practitioner's note and agree with the documented findings and plan of care. Lung sounds are positive for clear breath sounds. The findings and the impression was discussed with the patient. I attest to the documentation by the nurse practitioner. Time with Patient: Less than 30
--- NOTE | 2018-08-31 12:21 | CONS ---
CONSULTATION Mr. Esquivel is a 53-year-old gentleman who is seen for cardiac evaluation. This patient's medical history and electronic medical records reviewed. The patient is admitted with the complaint of retention of fluid. The patient says his hands are swollen. His throat was swollen and the legs were swollen and had some difficulty in breathing. This patient has a known history of chronic obstructive pulmonary disease and has been treated for medications. He also has a history of sleep apnea. The patient has a chronic pain syndrome. He is in the process of cutting down the Vicodin, but times he increased his Celebrex 2 tablets daily. The patient denies any orthopnea or PND. Denies any history of diabetes, hypertension, or prior myocardial infarction. The patient's chest x-ray did not show any abnormality. The lab work done today was normal. Patient's proBNP level is 18 and it was 17 about a few months ago. PAST MEDICAL HISTORY: Past medical history includes history of COPD. 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 MEDICATIONS: Patient's medications include Celebrex 200 mg b.i.d., aspirin, pantoprazole, Ventolin, vitamin B12, coenzyme Q, Zyrtec, Lasix. PHYSICAL EXAMINATION: Physical examination at present reveals a 53-year-old obesely built gentleman who does not appear to be in any acute distress. Patient's heart rate is 70 per minute. Blood pressure in the emergency room was 150/90 mmHg. Blood pressure now is 141/74 mmHg, oxygen saturation is 94% on room air. Head/ENT examination is negative. Neck is supple. There is no increase in jugular venous pressure. Both the carotid pulses are felt. There is no bruit. Chest is symmetrical. HEART: The PMI is not felt. First and second heart sounds are normal. Lungs are clinically clear to auscultation and percussion. Abdomen is negative. EXTREMITIES: There is a trace leg edema. EKG shows normal sinus rhythm without any acute ischemic changes. ProBNP level is 78. Chest x-ray is normal. Echocardiogram reveals normal left ventricular systolic functions. Patient's creatinine is 0.90. Liver function tests are normal and albumin is 3.9. FINAL IMPRESSION: This patient is primarily admitted with fluid retention, most likely it is secondary to increased dose of Celebrex. There is no evidence of congestive cardiac failure. His echocardiogram reveals a normal left ventricular systolic function. We would recommend to continue the patient on diuretics for short period of time until his edema resolves. ALOK / TATO: [id number] /
--- NOTE | 2018-08-31 14:16 | ECHOF ---
Referral Reason:Heart Failure MEASUREMENTS -------- HEIGHT: 182.9 cm WEIGHT: 140.6 kg BP: 153/93 RVIDd: 3.5 cm (< 3.3) IVSd: 1.6 cm (0.6 - 1.1) LVIDd: 3.4 cm (3.9 - 5.3) LVPWd: 1.8 cm (0.6 - 1.1) IVSs: 2.1 cm LVIDs: 2.2 cm LVPWs: 1.9 cm LAESV Index (A-L): 18.75 ml/m Ao Diam: 3.5 cm (2.0 - 3.7) AV Cusp: 1.6 cm (1.5 - 2.6) LA Diam: 3.0 cm (2.7 - 3.8) MV E Kofi: 0.57 m/s MV DecT: 239 ms MV A Kofi: 0.58 m/s MV E/A Ratio: 0.97 RAP: 5.00 mmHg RVSP: 10.02 mmHg FINDINGS -------- Sinus rhythm. This was a technically difficult study with suboptimal views. The left ventricular size is normal. There is moderate concentric left ventricular hypertrophy. O verall left ventricular systolic function is normal with, an EF between 55 - 60 %. The right ventricle is mildly enlarged. Normal LA size by volume 22+/-6 ml/m2. The right atrial size is normal. Lumason used Interatrial and interventricular septum intact. The aortic valve is trileaflet and appears structurally normal. The mitral valve is normal. Mild tricuspid regurgitation present. Right ventricular systolic pressure is normal at < 35 mmHg. The right ventricular systolic pressure, as measured by Doppler, is 10.02mmHg. Pulmonic valve appears structurally normal. The aortic root size is normal. IVC Not well visulized. Echo free space indicative of a pericardial fat pad. CONCLUSIONS -------- 1. Sinus rhythm. 2. This was a technically difficult study with suboptimal views. 3. The left ventricular size is normal. 4. There is moderate concentric left ventricular hypertrophy. 5. Overall left ventricular systolic function is normal with, an EF between 55 - 60 %. 6. The right ventricle is mildly enlarged. 7. Normal LA size by volume 22+/-6 ml/m2. 8. The right atrial size is normal. 9. Lumason used 10. Interatrial and interventricular septum intact. 11. The aortic valve is trileaflet and appears structurally normal. 12. The mitral valve is normal. 13. Mild tricuspid regurgitation present. 14. Right ventricular systolic pressure is normal at < 35 mmHg. 15. The right ventricular systolic pressure, as measured by Doppler, is 10.02mmHg. 16. Pulmonic valve appears structurally normal. 17. The aortic root size is normal. 18. IVC Not well visulized. 19. Echo free space indicative of a pericardial fat pad. GROUND HAND: Elizabeth Valadez RDCS
--- NOTE | 2018-09-03 14:48 | CDI ---
Documentation Clarification Form Date: 09-03-18 From: Delmis Mayfield Phone: If you have question, contact Seema Zamarripa at [phone] M-F 8:30 am to 6pm Admit Date: 08/29/2018 8:28:00 PM Patient Name: Khalif Esquivel Visit Number: [id number] Discharge Date: 08/31/2018 2:20:00 PM ATTENTION: The Clinical Documentation Specialists (CDI) and [facility] Coding Staff appreciate your assistance in clarifying documentation. Please respond to the clarification below the line at the bottom and electronically sign. The CDI & [facility] Coding staff will review the response and follow-up if needed. Please note: Queries are made part of the Legal Health Record. If you have any questions, please contact the author of this message via ITS. Dr. Gauri Og According to your consult dated 08/31 He is in the process of cutting down the Vicodin, but __Blank____ he increased his Celebrex 2 tablets daily. Final impression: This patient is primarily admitted with fluid retention, most likely secondary to increased dose of Celebrex. Please indicate the word(s) that should be in empty blank within the dictation. Please also clarify if this increase of Celebrex was as prescribed or if it was done by his own decision. MTDD
--- NOTE | 2018-09-09 15:43 | P.DS ---
Providers Date of admission: 08/29/18 20:28 Attending physician: Tao Frank MD Consults: 08/29/18 20:28 Consult Physician Routine Consulting Provider: Shonna Owusu Consult Reason/Comments: Dyspnea Do you want consulting provider notified?: Yes Consult Physician Routine Consulting Provider: [facility] Consult Reason/Comments: Anasarca Do you want consulting provider notified?: Yes Primary care physician: Rufino Wyatt [place] [facility] Course: Diagnoses: Anasarca, improving Generalized polyarthralgia Sore throats Chest pain with dry cough. History of asthma/COPD, not in acute exacerbation History of severe obstructive sleep apnea Obesity Ex smoker History of estrogen arthritis with joint replacement Hospital course: This is a pleasant 63 years old male with past medical history of asthma/COPD, obstructive sleep apnea, obesity, ex-smoker, osteoarthritis. Comes complaining of generalized swelling in her whole body including the upper and lower extremities, patient has been evaluated by pulmonary team, his chest x-ray looks clear. Patient was treated with IV Lasix. Patient feels better already. With patient improvement it felt his more stable for discharge. Patient denies chest pain or dyspnea, no abdominal pain. Hysterectomy and diet well with no nausea vomiting. No urinary complaints and no fever. Echocardiogram: Pending Patient supposed to follow-up with his business applications specialist Dr. Owusu today for his sleep apnea, also patient has several years history of polyarthralgia that is been treated by NSAIDs. I explained to him the risks of these medication including but not limited to the risk of kidney damage and GI ulceration, he verbalized understanding and acceptance and he agreed with a recommendation for referral to sales & service associate. Patient asked medical staff to make appointments for him. Patient was cleared by pulmonary team for discharge Patient himself felt he is ready to go home Problems and management plan were discussed with the patient and he verbalized understanding and acceptance Patient was found stable and can be discharged however he needs follow-up as an outpatient. Patient was instructed to follow up with his PCP Dr. Wyatt in 1 week, he agrees and said he will call and make his own appointment. However he asked medical staff help to make appointments for his sales & service associate and business applications specialist and he agrees with appointments and their timings and states he will follow up Gen: patient is a AAOx3, no distress CVS: S1-S2, RRR, no murmur Lungs: B/L CTA, no wheezing Abdomen: soft, no distention, no tenderness, positive bowel sounds Extremity: no leg edema or induration Time spent more than 35 minutes Patient Condition at Discharge: Stable Plan - Discharge Summary New Discharge Prescriptions: Continue HYDROcodone/APAP 10-325MG [Madison 10-325] 1 tab PO TID PRN PRN Reason: Pain Aspirin [Adult Low Dose Aspirin EC] 81 mg PO DAILY Montelukast [Singulair] 10 mg PO HS #30 tab Pantoprazole [Protonix] 40 mg PO AC-BRKFST #30 tablet. Albuterol Inhaler [Ventolin Hfa Inhaler] 2 puff INHALATION RT-Q4H PRN PRN Reason: Shortness Of Breath Cyanocobalamin (Vitamin B-12) [Vitamin B-12] 1,000 mcg PO DAILY Multivitamins, Thera [Multivitamin (formulary)] 1 tab PO DAILY Ogden-3 Fatty Acids/Fish Oil [Fish Oil 1,000 mg Softgel] 1 cap PO DAILY Ubidecarenone [Co Q-10] 100 mg PO DAILY Acetaminophen Tab [Tylenol] 500 mg PO Q6HR PRN tab PRN Reason: Fever And/ Or Pain Milk Thistle 150 mg PO DAILY Furosemide [Lasix] 40 mg PO DAILY Cetirizine HCl [Zyrtec] 10 mg PO DAILY Fluticasone/Salmeterol [Airduo Respiclick 232-14 Mcg] 1 puff INHALATION RT- BID Discontinued Celecoxib [CeleBREX] 200 mg PO DAILY Ipratropium-Albuterol Nebulize [Duoneb 0.5 mg-3 mg/3 ml Soln] 3 ml INHALATION RT-QID #120 ampul.neb Discharge Medication List HYDROcodone/APAP 10-325MG [Madison 10-325] 1 tab PO TID PRN 03/31/18 [History] Aspirin [Adult Low Dose Aspirin EC] 81 mg PO DAILY 04/02/18 [History] Montelukast [Singulair] 10 mg PO HS #30 tab 04/02/18 [Rx] Pantoprazole [Protonix] 40 mg PO AC-BRKFST #30 tablet. 04/02/18 [Rx] Albuterol Inhaler [Ventolin Hfa Inhaler] 2 puff INHALATION RT-Q4H PRN 05/23/18 [History] Cyanocobalamin (Vitamin B-12) [Vitamin B-12] 1,000 mcg PO DAILY 05/23/18 [History] Multivitamins, Thera [Multivitamin (formulary)] 1 tab PO DAILY 05/23/18 [History] Ogden-3 Fatty Acids/Fish Oil [Fish Oil 1,000 mg Softgel] 1 cap PO DAILY 05/23/18 [History] Ubidecarenone [Co Q-10] 100 mg PO DAILY 05/23/18 [History] Acetaminophen Tab [Tylenol] 500 mg PO Q6HR PRN tab 05/28/18 [Rx] Cetirizine HCl [Zyrtec] 10 mg PO DAILY 08/29/18 [History] Fluticasone/Salmeterol [Airduo Respiclick 232-14 Mcg] 1 puff INHALATION RT-BID 08/29/18 [History] Furosemide [Lasix] 40 mg PO DAILY 08/29/18 [History] Milk Thistle 150 mg PO DAILY 08/29/18 [History] Follow up Appointment(s)/Referral(s): Rufino Wyatt MD [Primary Care Provider] - 1-2 days (Unable to get through. Please call to schedule appointment) Yee Kyle MD [STAFF PHYSICIAN] - 09/06/18 9:00 am () Shonna Owusu MD [STAFF PHYSICIAN] - 1 Week (keep scheduled appointment) Julee Og MD [STAFF PHYSICIAN] - 09/26/18 3:00 pm (Monday ) Patient Instructions/Handouts: Heart Healthy Diet (DC), Edema (DC) Activity/Diet/Wound Care/Special Instructions: cardiac diet activity is limited till you see your doctor Discharge Disposition: HOME SELF-CARE
--- NOTE | 2018-10-08 12:13 | CDI ---
Documentation Clarification Form Date: 09-03-18 From: Delmis Mayfield Phone: If you have question, contact Seema Zamarripa at [phone] M-F 8:30 am to 6pm Admit Date: 08/29/2018 8:28:00 PM Patient Name: Khalif Esquivel Visit Number: [id number] Discharge Date: 08/31/2018 2:20:00 PM ATTENTION: The Clinical Documentation Specialists (CDI) and [facility] Coding Staff appreciate your assistance in clarifying documentation. Please respond to the clarification below the line at the bottom and electronically sign. The CDI & [facility] Coding staff will review the response and follow-up if needed. Please note: Queries are made part of the Legal Health Record. If you have any questions, please contact the author of this message via ITS. Dr. Gauri Og According to your consult dated 08/31 He is in the process of cutting down the Vicodin, but he increased his Celebrex 2 tablets daily. Final impression: This patient is primarily admitted with fluid retention, most likely secondary to increased dose of Celebrex. Please indicate the word(s) that should be in empty blank within the dictation. Please also clarify if this increase of Celebrex was as prescribed or if it was done by his own decision. MTDD
== END 2018-08-31 14:20 | disposition home or self-care (01) ==
LOC: EC 14:01 → OBSVTOIN 20:28 → 3SCARD 20:28 → UNDOADMOB 20:28 → INTOOBSV 20:28 → 3SCARD 22:37 → 1SOBS 08-30 07:44 → 3SCARD 08-30 07:44 → 1SOBS 08-30 13:16 → 3SCARD 08-30 13:16 → UNDODISIN 08-31 14:20
PROVIDERS: ADMIT Internal Medicine; ATTEND Internal Medicine
DX: T39.391A Poisoning by other nonsteroidal anti-inflammatory drugs [NSAID], accidental (unintentional), initial encounter (principal); R60.1 Generalized edema; R06.00 Dyspnea, unspecified; J44.9 Chronic obstructive pulmonary disease, unspecified; G47.33 Obstructive sleep apnea (adult) (pediatric); M19.90 Unspecified osteoarthritis, unspecified site; E66.01 Morbid (severe) obesity due to excess calories; Z96.652 Presence of left artificial knee joint; G89.4 Chronic pain syndrome; Z68.39 Body mass index [BMI] 39.0-39.9, adult; Z96.641 Presence of right artificial hip joint; Z87.891 Personal history of nicotine dependence; Z82.49 Family history of ischemic heart disease and other diseases of the circulatory system; Z79.899 Other long term (current) drug therapy; Z79.1 Long term (current) use of non-steroidal anti-inflammatories (NSAID); Z79.82 Long term (current) use of aspirin; Z82.0 Family history of epilepsy and other diseases of the nervous system
CPT/HCPCS: 96376 ×3; 96372 ×3; 96375 ×2; 96374; 99285; 36415; 94640 ×4; 93005; 93017; 85379; 83880; 80053; 80048; 83735; 84484; 85025; 85610; 85730; 87040; 87502; 71046; 76705; G0378 ×3; C8929; J1644 ×2; J1940 ×3; Q9950; 93306

== ENCOUNTER 2018-12-16 19:16 | Emergency (ER) | payer OTHER ==
[2018-12-16 19:22] VITALS: TEMP 98.4
[2018-12-16] MEDS ORDERED: IPRATROPIUM-ALBUTEROL 3 ML NEB INHALATION STA (19:42)
[2018-12-16] MEDS ORDERED: methylPREDNISolone SOD SUCCI 125 MG/2 ML VIAL IV STA (19:46)
[2018-12-16 20:33] LABS: Anisocytosis Slight; Basophils # (A) 0.1 k/uL (0-0.2); Basophils % (A) 1 %; Eosinophils # (A) 0.3 k/uL (0-0.7); Eosinophils % (A) 3 %; HCT 41.2 % (39.0-53.0); Lymphocytes # (A) 2.4 k/uL (1.0-4.8); Lymphocytes % (A) 23 %; MCH 28.9 pg (25.0-35.0); MCHC 33.9 g/dL (31.0-37.0); MCV 85.4 fL (80.0-100.0); Mean Platelet Volume 7.3; Monocytes # (A) 0.7 k/uL (0-1.0); Monocytes % (A) 7 %; Neutrophils # (A) 6.6 k/uL (1.3-7.7); Neutrophils % (A) 64 %; Platelet Count 302 k/uL (150-450); RBC 4.83 m/uL (4.30-5.90); RDW 16.6 % (11.5-15.5); WBC 10.3 k/uL (3.8-10.6)
[2018-12-16 20:49] LABS: ALT 41 U/L (21-72); AST 30 U/L (17-59); African American GFR (CKD) >90 (>60 ml/min/1.73 sqM); Albumin 4.1 g/dL (3.5-5.0); Alkaline Phosphatase 66 U/L (38-126); Anion Gap 9 mmol/L; Blood Urea Nitrogen 24 mg/dL (9-20); Calcium 9.1 mg/dL (8.4-10.2); Carbon Dioxide 28 mmol/L (22-30); Chloride 102 mmol/L (98-107); D-Dimer 0.51 mg/L FEU (<0.60); Glucose 125 mg/dL (74-99); Partial Thromboplastin Time 24.1 sec (22.0-30.0); Potassium 4.2 mmol/L (3.5-5.1); Prothrombin Time 10.5 sec (9.0-12.0); Sodium 139 mmol/L (137-145); Total Bilirubin 0.3 mg/dL (0.2-1.3); Total Protein 6.5 g/dL (6.3-8.2)
--- NOTE | 2018-12-16 20:59 | ED ---
General Adult HPI - General Chief complaint: Shortness of Breath Stated complaint: NBA Time Seen by Provider: 12/16/18 19:27 Source: patient Mode of arrival: ambulatory Limitations: no limitations - History of Present Illness Initial comments: Patient is a 53-year-old male with history of COPD is presenting to the emergency department with a chief complaint of shortness of breath. Patient reports ongoing shortness of breath for approximately 3 weeks. Over the same period Patient reports that he has developed generalized chest tightness. Patient reports dyspnea on exertion. Patient denies any other chest pains. Patient reports decreased compliance with his COPD medication. Patient denies diaphoresis. Patient denies family history of cardiovascular disease. Patient denies previous cardiac history. Patient denies taking medication to alleviate the symptoms. Patient denies any blurred vision, nausea or vomiting. Patient denies fevers night sweats or chills. - Related Data Home Medications Medication Instructions Recorded Confirmed Aspirin [Adult Low Dose Aspirin EC] 81 mg PO DAILY 04/02/18 12/16/18 Albuterol Inhaler [Ventolin Hfa 2 puff INHALATION RT-Q4H PRN 05/23/18 12/16/18 Inhaler] Multivitamins, Thera [Multivitamin 1 tab PO DAILY 05/23/18 12/16/18 (formulary)] Durham-3 Fatty Acids/Fish Oil [Fish 1 cap PO DAILY 05/23/18 12/16/18 Oil 1,000 mg Softgel] Ubidecarenone [Co Q-10] 100 mg PO DAILY 05/23/18 12/16/18 Furosemide [Lasix] 40 mg PO DAILY 08/29/18 12/16/18 Loratadine [Claritin] 10 mg PO DAILY 12/16/18 12/16/18 Mometasone/Formoterol [Dulera 100 1 puff INHALATION RT-BID 12/16/18 12/16/18 Mcg/5 Mcg Inhaler] Previous Rx's Medication Instructions Recorded Montelukast [Singulair] 10 mg PO HS #30 tab 04/02/18 Furosemide [Lasix] 40 mg PO DAILY #30 tablet 12/16/18 Allergies Allergy/AdvReac Type Severity Reaction Status Date / Time bee venom protein (honey bee) Allergy Swelling Verified 12/16/18 20:02 Review of Systems ROS Statement: Those systems with pertinent positive or pertinent negative responses have been documented in the HPI. ROS Other: All systems not noted in ROS Statement are negative. Past Medical History Past Medical History: Asthma, COPD, Osteoarthritis (OA) Additional Past Medical History / Comment(s): Obesity with a BMI of 38, osteoarthritis, COPD/asthma and the patient has worked in construction and he has a [id number] smoking history at least. History of Any Multi-Drug Resistant Organisms: None Reported Past Surgical History: Joint Replacement Additional Past Surgical History / Comment(s): left knee, R hip Past Anesthesia/Blood Transfusion Reactions: No Reported Reaction Past Psychological History: No Psychological Hx Reported Smoking Status: Former smoker Past Alcohol Use History: None Reported, Occasional Past Drug Use History: None Reported - Past Family History Father Additional Family Medical History / Comment(s): Parkinsons disease Mother Family Medical History: Hypertension General Exam Limitations: no limitations General appearance: alert, in no apparent distress, obese Head exam: Present: atraumatic, normocephalic, normal inspection Eye exam: Present: normal appearance, PERRL, EOMI. Absent: conjunctival injection Pupils: Present: normal accommodation ENT exam: Present: normal exam, normal oropharynx, mucous membranes moist Neck exam: Present: normal inspection, full ROM Respiratory exam: Present: wheezes (bilateral) Cardiovascular Exam: Present: regular rate, normal rhythm, normal heart sounds Extremities exam: Present: normal inspection, full ROM. Absent: calf tenderness Back exam: Present: normal inspection, full ROM Neurological exam: Present: alert, oriented X3 Psychiatric exam: Present: normal affect, normal mood Skin exam: Present: warm, intact, normal color Course Vital Signs 12/16/18 12/16/18 12/16/18 19:20 20:11 20:34 Temperature 98.4 F Pulse Rate 91 84 88 Respiratory 20 Rate Blood Pressure 173/89 O2 Sat by Pulse 97 Oximetry 12/16/18 21:58 Temperature Pulse Rate 78 Respiratory 18 Rate Blood Pressure 156/75 O2 Sat by Pulse 95 Oximetry EKG Findings - EKG Comments: EKG Findings:: Normal sinus rhythm. Ventricular rate 83, NM interval 160, QRS duration 84, QT/QTC 352/413, p-r-t axes 54 34 42 Medical Decision Making - Medical Decision Making Patient is a 53-year-old male with history of COPD as presenting to emergency Department with a chief complaint of shortness of breath. Patient had developed dyspnea on exertion approximately 3 weeks. Patient reports intermittent COPD exacerbations. Patient reports recent poor compliance with COPD medication. Patient reports he is currently looking for a new family care physician. Patient was given a DuoNeb treatment and Solu-Medrol. On reevaluation patient reports feeling much better and the dyspnea is almost resolved. The wheezing has resolved. Patient has no chest pain and reports the chest tightness has resolved after the treatment. EKG indicates a sinus rhythm. Patient was admitted to the ED approximately 4 months ago and a cardiac workup was performed and unremarkable. Initial troponin and d-dimer are negative. Patient has a heart score of 2. At this point I dont suspect cardiac pathology. I highly suspect the patient has developed a COPD exacerbation and was able to be managed with steroids and a respiratory treatment. Patient was advised to follow-up and obtain a new relationship with a primary care physician. Patient also requested a refill on his Lasix medication. Strict return parameters were thoroughly discussed with patient was understanding and agreeable. I discharge patient vital stable. Case discussed physician. - Lab Data Result diagrams: 12/16/18 20:02 12/16/18 20:02 Lab Results 12/16/18 12/16/18 12/16/18 Range/Units 20:02 20:02 20:02 WBC 10.3 (3.8-10.6) k/uL RBC 4.83 (4.30-5.90) m/uL Hgb 14.0 (13.0-17.5) gm/dL Hct 41.2 (39.0-53.0) % MCV 85.4 (80.0-100.0) fL MCH 28.9 (25.0-35.0) pg MCHC 33.9 (31.0-37.0) g/dL RDW 16.6 H (11.5-15.5) % Plt Count 302 (150-450) k/uL Neutrophils % 64 % Lymphocytes % 23 % Monocytes % 7 % Eosinophils % 3 % Basophils % 1 % Neutrophils # 6.6 (1.3-7.7) k/uL Lymphocytes # 2.4 (1.0-4.8) k/uL Monocytes # 0.7 (0-1.0) k/uL Eosinophils # 0.3 (0-0.7) k/uL Basophils # 0.1 (0-0.2) k/uL Anisocytosis Slight PT 10.5 (9.0-12.0) sec INR 1.0 (<1.2) APTT 24.1 (22.0-30.0) sec D-Dimer 0.51 (<0.60) mg/L FEU Sodium 139 (137-145) mmol/L Potassium 4.2 (3.5-5.1) mmol/L Chloride 102 (98-107) mmol/L Carbon Dioxide 28 (22-30) mmol/L Anion Gap 9 mmol/L BUN 24 H (9-20) mg/dL Creatinine 0.96 (0.66-1.25) mg/dL Est GFR (CKD-EPI)AfAm >90 (>60 ml/min/1.73 sqM) Est GFR (CKD-EPI)NonAf 89 (>60 ml/min/1.73 sqM) Glucose 125 H (74-99) mg/dL Calcium 9.1 (8.4-10.2) mg/dL Total Bilirubin 0.3 (0.2-1.3) mg/dL AST 30 (17-59) U/L ALT 41 (21-72) U/L Alkaline Phosphatase 66 (38-126) U/L Troponin I (0.000-0.034) ng/mL Total Protein 6.5 (6.3-8.2) g/dL Albumin 4.1 (3.5-5.0) g/dL 12/16/18 Range/Units 20:02 WBC (3.8-10.6) k/uL RBC (4.30-5.90) m/uL Hgb (13.0-17.5) gm/dL Hct (39.0-53.0) % MCV (80.0-100.0) fL MCH (25.0-35.0) pg MCHC (31.0-37.0) g/dL RDW (11.5-15.5) % Plt Count (150-450) k/uL Neutrophils % % Lymphocytes % % Monocytes % % Eosinophils % % Basophils % % Neutrophils # (1.3-7.7) k/uL Lymphocytes # (1.0-4.8) k/uL Monocytes # (0-1.0) k/uL Eosinophils # (0-0.7) k/uL Basophils # (0-0.2) k/uL Anisocytosis PT (9.0-12.0) sec INR (<1.2) APTT (22.0-30.0) sec D-Dimer (<0.60) mg/L FEU Sodium (137-145) mmol/L Potassium (3.5-5.1) mmol/L Chloride (98-107) mmol/L Carbon Dioxide (22-30) mmol/L Anion Gap mmol/L BUN (9-20) mg/dL Creatinine (0.66-1.25) mg/dL Est GFR (CKD-EPI)AfAm (>60 ml/min/1.73 sqM) Est GFR (CKD-EPI)NonAf (>60 ml/min/1.73 sqM) Glucose (74-99) mg/dL Calcium (8.4-10.2) mg/dL Total Bilirubin (0.2-1.3) mg/dL AST (17-59) U/L ALT (21-72) U/L Alkaline Phosphatase (38-126) U/L Troponin I <0.012 (0.000-0.034) ng/mL Total Protein (6.3-8.2) g/dL Albumin (3.5-5.0) g/dL Disposition Clinical Impression: Shortness of breath Disposition: HOME SELF-CARE Condition: Stable Instructions (If sedation given, give patient instructions): Chronic Cough (ED) Additional Instructions: Please follow with primary care. Please return to emergency department if symptoms worsen. Prescriptions: Furosemide [Lasix] 40 mg PO DAILY #30 tablet Is patient prescribed a controlled substance at d/c from ED?: No Referrals: Rufino Wyatt MD [Primary Care Provider] - 1-2 days Time of Disposition: 22:08
--- NOTE | 2018-12-16 21:08 | XR ---
EXAMINATION TYPE: XR chest 2V DATE OF EXAM: 12/16/2018 COMPARISON: Chest x-ray August 29, 2018 HISTORY: History of COPD with shortness of breath this afternoon. TECHNIQUE: Frontal and lateral views of the chest are obtained. FINDINGS: There is left basilar linear scarring redemonstrated. There is no new suspicious focal air space opacity, pleural effusion, or pneumothorax seen. The cardiac silhouette size is stable at upp er limits of normal. Some multilevel spurring of the thoracic spine is present. IMPRESSION: Chronic changes without new suspicious acute pulmonary process.
[2018-12-16 21:59] VITALS: BP 156/75; PULSE 78; RESP 18
== END 2018-12-16 22:31 | disposition home or self-care (01) ==
LOC: EC 19:16
DX: R06.02 Shortness of breath (principal); R06.09 Other forms of dyspnea; J44.9 Chronic obstructive pulmonary disease, unspecified; M19.90 Unspecified osteoarthritis, unspecified site; E66.9 Obesity, unspecified; Z79.51 Long term (current) use of inhaled steroids; Z79.82 Long term (current) use of aspirin; Z79.899 Other long term (current) drug therapy; Z91.030 Bee allergy status; Z87.891 Personal history of nicotine dependence; Z68.38 Body mass index [BMI] 38.0-38.9, adult
CPT/HCPCS: 36415; 93005; 85379; 80053; 84484; 85025; 85610; 85730; 71046; 99285; 96374; J2930